=== PATIENT | male | born 1950 | race Caucasian/White ===

== ENCOUNTER 2024-02-08 14:28 | Observation (INO) | payer MEDICARE ==
[2024-02-08] MEDS: ASPIRIN 81 MG PO STA (15:13)
[2024-02-08] MEDS: NITROGLYCERIN OINT 1 INCH/GM PACKET TOPICAL STA (15:16)
--- NOTE | 2024-02-08 15:48 | ED ---
General Adult HPI - General Chief complaint: Recheck/Abnormal Lab/Rx Stated complaint: Chest pain Time Seen by Provider: 02/08/24 14:47 Source: patient Mode of arrival: EMS Limitations: no limitations - History of Present Illness Initial comments: This 73-year-old male presents with a complaint of some chest pain and shortness of breath. He states that it initially started a couple weeks ago. It seems to be worse with exertion. It is in his midsternal region described as a pressure. It will occasionally radiate down his left arm. He states that he is very active. He apparently was lifting something up heavy to the top of the steps and afterwards he states that his symptoms were severe in nature. He denies any fevers or chills. He does relate a history of COPD and pulmonary fibrosis. He also states that he was scheduled for a PET scan to evaluate him abnormal calcification on his right lung. His last stress test was quite remote. He denies any known history of coronary artery disease. He has never had a heart catheterization. There is no leg pain or swelling or history of DVT or PE. He was initially seen at [facility] and sent to our emergency department for further evaluation. He had 2 negative troponins as well as a negative chest x-ray and EKG and laboratory workup at their facility. He still apparently had a heart score of 5 and they felt as though he would require further cardiac evaluation. Upon my examination today, patient is not complaining of any further chest pain at this time or shortness of breath. No other identifiable complaints or modifying factors. He did receive aspirin at [facility] prior to arrival. - Related Data Allergies Allergy/AdvReac Type Severity Reaction Status Date / Time Penicillins Allergy Rash/Hives Verified 02/08/24 14:43 Sulfa (Sulfonamide Allergy Rash/Hives Verified 02/08/24 14:44 Antibiotics) Review of Systems ROS Statement: Those systems with pertinent positive or pertinent negative responses have been documented in the HPI. ROS Other: All systems not noted in ROS Statement are negative. Past Medical History Past Medical History: Cancer, COPD, GERD/Reflux, Hyperlipidemia, Hypertension Additional Past Medical History / Comment(s): prostate History of Any Multi-Drug Resistant Organisms: None Reported Past Surgical History: Cholecystectomy, Orthopedic Surgery Additional Past Surgical History / Comment(s): excision of bunion, cryoablate prostate, colonoscopy Past Psychological History: No Psychological Hx Reported Smoking Status: Former smoker Past Alcohol Use History: None Reported Past Drug Use History: None Reported General Exam - General Exam Comments Initial Comments: GENERAL: The patient is well nourished and well hydrated. VITAL SIGNS: Heart rate, blood pressure, respiratory rate reviewed as recorded in nurse's notes. EYES: Pupils are round and reactive. Extraocular movements are intact. No conj unctival / lid redness or swelling. ENT: No external evidence of injury, swelling, or ecchymosis. Airway is patent. Throat is clear. NECK: Nontender. No swelling or evidence of injury. No subcutaneous emphysema. Trachea is midline. No thyroid mass. HEART: Regular rate and rhythm. Good peripheral pulses. LUNGS/CHEST: Breath sounds clear and equal bilaterally. No rales, rhonchi, or wheezes. No ecchymosis, subcutaneous emphysema, or tenderness. ABDOMEN: Abdomen soft without tenderness. No palpable masses or organomegaly. No peritoneal signs. No abdominal wall swelling or ecchymosis. EXTREMITIES: No extremity tenderness. Normal muscle tone and function. No thoracolumbar tenderness. NEUROLOGIC: Sensation is grossly intact. Cranial nerve exam reveals face is symmetrical, tongue is midline, speech is clear. SKIN: No abrasions or ecchymosis is noted. No induration or masses noted. PSYCHIATRIC: Alert and oriented. Appropriate behavior and judgment. Limitations: no limitations Course Vital Signs 02/08/24 14:36 Temperature 98 F Pulse Rate 102 H Respiratory 18 Rate Blood Pressure 181/116 O2 Sat by Pulse 98 Oximetry Medical Decision Making - Medical Decision Making The patient was seen and examined. All diagnostics were reviewed. EKG was done at the sending facility and this does show a normal sinus rhythm and there is no acute ST or T wave changes noted per my interpretation. There is a prolonged QTc at 538. The patient had a repeat EKG at our facility which shows a normal sinus rhythm at a rate of 68. There is no acute ST or T wave changes noted per my interpretation. The intervals are all normal. The chest x-ray at the sending facility was all essentially within normal limits. Patient also had a full laboratory workup which does show normal electrolytes and liver function studies. The creatinine is normal at 1.0. The troponins are negative. D-dimer is normal. The patient had a repeat troponin at our facility and this is normal as well. He received some Nitropaste to the anterior chest wall. Records were reviewed from the sending facility. It is felt as though his symptomatology is fairly suspicious of possible coronary artery disease and possible acute coronary syndrome/unstable angina. Patient is agreeable with admission. It is felt as though he benefit from observation admission. Case is discussed with internal medicine and they are agreeable with admission. The patient's blood pressure is elevated and labetalol is ordered. Was pt. sent in by a medical professional or institution (, [employer], PHILOSOPHY FACULTY MEMBER, urgent care, hospital, or [facility]...) When possible be specific @ -Patient was sent to our [facility] from [place] emergency department. Did you speak to anyone other than the patient for history (EMS, parent, family, police, friend...)? What history was obtained from this source @ -Case was discussed with ER physician at the sending facility. Did you review nursing and triage notes (agree or disagree)? Why? @ -[I reviewed and agree with nursing and triage notes] Were old charts reviewed (outside hosp., previous admission, EMS record, old EKG, old radiological studies, urgent care reports/EKG's, [facility] records)? Report findings @ -[No old charts were reviewed] Differential Diagnosis (chest pain, altered mental status, abdominal pain women, abdominal pain men, vaginal bleeding, weakness, fever, dyspnea, syncope, headache, dizziness, GI bleed, back pain, seizure, CVA, palpatations, mental health, musculoskeletal)? @ -Unstable angina, acute coronary syndrome, exertional chest pain and dyspnea with left arm pain, non-ST elevation myocardial infarction. EKG interpreted by me (3pts min.). @ -[As above] X-rays interpreted by me (1pt min.). @ -X-rays were completed at the sending facility, please see above. CT interpreted by me (1pt min.). @ -[None done] U/S interpreted by me (1pt. min.). @ -[None done] What testing was considered but not performed or refused? (CT, X-rays, U/S, labs)? Why? @ -[None] What meds were considered but not given or refused? Why? @ -[None] Did you discuss the management of the patient with other professionals (professionals i.e. , [employer], PHILOSOPHY FACULTY MEMBER, lab, RT, psych nurse, social worker delinquency prevention, associate dean of students, teacher, boating safety officer, caseworker intake)? Give summary @ -Case is discussed with internal medicine and they are agreeable with admission. Was smoking cessation discussed for >3mins.? @ -[No] Was critical care preformed (if so, how long)? @ -[No] Were there social determinants of health that impacted care today? How? (Homelessness, low income, unemployed, alcoholism, drug addiction, transportation, low edu. Level, literacy, decrease access to med. care, longterm, rehab)? @ -[No] Was there de-escalation of care discussed even if they declined (Discuss DNR or withdrawal of care, Hospice)? DNR status @ -[No] What co-morbidities impacted this encounter? (DM, HTN, Smoking, COPD, CAD, Cancer, CVA, ARF, Chemo, Hep., AIDS, mental health diagnosis, sleep apnea, morbid obesity)? @ -Hyperlipidemia, chronic sinusitis, COPD, pulmonary nodule, gastroesophageal reflux, psoriasis, osteoarthritis, prostate cancer. Was patient admitted / discharged? Hospital course, mention meds given and route, prescriptions, significant lab abnormalities, going to OR and other pertinent info. @ -Patient was admitted to observation, please see above. Undiagnosed new problem with uncertain prognosis? @ -[No] Drug Therapy requiring intensive monitoring for toxicity (Heparin, Nitro, Insulin, Cardizem)? @ -[No] Were any procedures done? @ -[No] Diagnosis/symptom? @ -Exertional chest pain and dyspnea, possible acute coronary syndrome, unstable angina Acute, or Chronic, or Acute on Chronic? @ -Acute Uncomplicated (without systemic symptoms) or Complicated (systemic symptoms)? @ -Uncomplicated Side effects of treatment? @ -[No] Exacerbation, Progression, or Severe Exacerbation? @ -[No] Poses a threat to life or bodily function? How? (Chest pain, [place], [place], pneumonia, PE, COPD, DKA, ARF, appy, cholecystitis, CVA, Diverticulitis, Homicidal, Suicidal, threat to staff... and all critical care pts) @ -Acute coronary syndrome does potentially cause threat to life. - Lab Data Lab Results 02/08/24 Range/Units 15:10 Troponin I 0.014 (0.000-0.034) ng/mL Disposition Clinical Impression: Exertional chest pain, Exertional dyspnea, Unstable angina, Hypertension Disposition: ADMITTED IP TO THIS HOSP Condition: Fair Is patient prescribed a controlled substance at d/c from ED?: No Referrals: None,Stated [Primary Care Provider] - 1-2 days Time of Disposition: 15:48 Decision Date: 02/08/24 Decision Time: 15:48
[2024-02-08] MEDS ORDERED: NITROGLYCERIN SL TABS 0.4 MG TAB SUBLINGUAL PRN (15:49)
[2024-02-08] MEDS: LABETALOL 5 MG/ML VIAL MDV IVP STA (16:04)
[2024-02-08] MEDS: ENOXAPARIN 40 MG/0.4 ML SYRINGE SQ SCH (16:07)
[2024-02-08] MEDS: NITROGLYCERIN OINT 1 INCH/GM PACKET TOPICAL SCH (20:02)
[2024-02-08] MEDS: PANTOPRAZOLE 40 MG TABLET PO SCH (22:11)
[2024-02-09] MEDS ORDERED: ASPIRIN 325 MG TAB PO SCH (09:00)
[2024-02-09] MEDS: ASPIRIN 81 MG PO SCH (09:25)
[2024-02-09] MEDS: LORATADINE 10 MG TAB PO SCH (09:25)
[2024-02-09] MEDS: amLODIPine 5 MG TAB PO SCH (09:26)
[2024-02-09] MEDS: SODIUM CHLORIDE 0.9% 1,000 ML IV SCH (09:26)
[2024-02-09] MEDS: LOSARTAN 25 MG TAB PO SCH (09:26)
[2024-02-09] MEDS: METOPROLOL TARTRATE 25 MG TAB PO SCH (09:26)
[2024-02-09 11:41] LABS: LDL Cholesterol,Calculated 140.8 mg/dL (0.0-131.0)
[2024-02-09 16:37] LABS: Basophils # (A) 0.07 X 10*3/uL (0.00-0.10); Basophils % (A) 0.6 %; Eosinophils # (A) 0.26 X 10*3/uL (0.04-0.35); Eosinophils % (A) 2.3 %; HGB 15.9 g/dL (13.0-17.0); Lymphocytes # (A) 2.23 X 10*3/uL (0.90-5.00); Lymphocytes % (A) 19.9 %; MCHC 33.1 g/dL (32.0-37.0); MCV 90.6 FL (80.0-97.0); Mean Platelet Volume 10.8 FL (9.5-12.2); Monocytes # (A) 0.98 X 10*3/uL (0.20-1.00); Monocytes % (A) 8.7 %; NRBC Per 100 WBC 0 X 10*3/uL (0.00-0.01); Neutrophils # (A) 7.56 X 10*3/uL (1.80-7.70); Neutrophils % (A) 67.5 %; Platelet Count 286 X 10*3/uL (140-440); RDW 13.6 % (11.5-14.5); WBC 11.21 X 10*3/uL (4.50-10.00)
[2024-02-09 16:39] LABS: Blood Urea Nitrogen 26.2 mg/dL (9.0-27.0); Calcium 9.3 mg/dL (8.7-10.3); Carbon Dioxide 21.6 mmol/L (21.6-31.8); Chloride 106 mmol/L (96-109); Glucose 100 mg/dL (70-110); Potassium 4.4 mmol/L (3.5-5.5); Sodium 140 mmol/L (135-145)
--- NOTE | 2024-02-09 21:03 | CONS ---
CONSULTATION Mr. Thierry Newberry is a 73-year-old gentleman with a known history of hypertension that he is aware of since 2021, but has not taken medications and he thought this was a white coat phenomenon. He also has a history of what seems to be a prostate cancer for which he had surgery. He also was diagnosed with pulmonary fibrosis and there is a question of pulmonary malignancy as well. This is the background history. He was transferred from [place] with complaints of chest pain, troponins are normal. EKG revealed sinus mechanism, first-degree AV block, no acute changes. Three sets of troponins are normal and the patient is resting comfortably without symptoms at this time. His main complaint for the last 2 weeks is shortness of breath on and off and yesterday he was carrying some tiles more than 40 pounds. He felt discomfort in the epigastric area and shortness of breath, and took time to recover from the shortness of breath. It is possible he may have CAD, but he has also a question of pulmonary fibrosis and workup is being performed for a pulmonary malignancy and is scheduled for a PET scan according to the patient. PAST MEDICAL HISTORY: 1. Hypertension. The patient does not take any medications even though he was aware of this since 2021. 2. Prostate CA status post cryosurgery. 3. History of some pulmonary fibrosis and question of pulmonary malignancy being investigated. MEDICATIONS: At home, no prescription medicines other than Prilosec that he takes over the counter. PHYSICAL EXAMINATION: VITAL SIGNS: Blood pressure is 140/70, pulse rate 70. HEENT: Unremarkable. Fundus not examined by me. NECK: Supple. No JVD. I do not hear a carotid bruit. There is no thyromegaly. HEART: S1, S2 heard normally. No significant murmurs. LUNGS: Reveal fine scattered rales on the left lateral base. ABDOMEN: Soft, nontender. LOWER EXTREMITIES: Reveal diminished pulses. CENTRAL NERVOUS SYSTEM: Normal. DIAGNOSTIC DATA: EKG revealed sinus mechanism, borderline first-degree AV block, no acute changes. IMPRESSION: 1. Episode of chest pain and shortness of breath, cannot exclude CAD. 2. Accelerated hypertension. 3. History of prostate cancer. 4. Question of pulmonary malignancy and pulmonary fibrosis, workup in progress. RECOMMENDATIONS: I am recommending that we treat him with metoprolol tartrate 25 mg daily, losartan 25 mg daily, aspirin 81 mg daily, amlodipine 5 mg daily. Once we optimize blood pressure, I will consider either a stress test or a cardiac cath. Explained to the patient that we will increase activity, optimize BP control, obtain echocardiogram, and then make further recommendations. Thank you very much for the consult. BARRY / CONRADO: [id number] /
[2024-02-10] MEDS ORDERED: IPRATROPIUM-ALBUTEROL 3 ML NEB INHALATION PRN (00:17)
--- NOTE | 2024-02-10 00:20 | P.HPIM ---
History of Present Illness H&P Date: 02/09/24 Chief Complaint: Chest pain Patient is a 73-year-old male with a long history of hypertension, hyperkalemia, GERD and COPD and prior history of smoking presents to ER with complaints of chest pain and shortness of breath. Patient states that he has been having difficulty breathing for the past 3 weeks and states that his lungs hurt mainly in the left upper chest. Yesterday historian chest pain after getting out of the car and went to the store he felt like his heart flip-flopping. 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 He started having chest pain and left arm tingling sensation. He noted his blood pressure went up to 126/101. Presented to ER for further evaluation. Patient otherwise denies any fever or chills. No cough or sputum production. No nausea vomiting or diaphoresis. Patient went to [facility] ER. He was found to have a negative troponin send chest x-ray was negative and EKG was sinus rhythm with no acute changes. Patient was transferred to [facility] with a heart score of 5 and possible further cardiac evaluation. Patient received aspirin prior to transfer. Laboratory data showed WBC 11.2 hemoglobin 15.9 and platelets 286 Sodium 140 potassium 4.4 chloride 106 bicarb is 21.6 BUN 26.2 and creatinine 1.0 and blood sugar 100 and troponin 0.014 Review of Systems Constitutional: Patient denies any fever or chills . No generalized weakness or weight loss. Abdomen: Patient denied nausea vomiting and diarrhea and abdominal pain. Cardiovascular: Patient did have chest pain and short of breath no palpitations. No leg swelling Respiratory: patient denied any cough is from production. Exertional shortness of breath Neurologic: Patient denied any numbness or tingling headache. Musculoskeletal: Patient denies any complaints of joint swelling or deformity. Skin: Negative Psychiatric: Negative Endocrine: No heat or cold intolerance. No recent weight gain. Genitourinary: No dysuria or hematuria. All other 14 point ROS negative except the above Past Medical History Past Medical History: Cancer, COPD, GERD/Reflux, Hyperlipidemia, Hypertension Additional Past Medical History / Comment(s): prostate History of Any Multi-Drug Resistant Organisms: None Reported Past Surgical History: Cholecystectomy, Orthopedic Surgery Additional Past Surgical History / Comment(s): excision of bunion, cryoablate prostate, colonoscopy Past Psychological History: No Psychological Hx Reported Smoking Status: Former smoker Past Alcohol Use History: None Reported Past Drug Use History: None Reported Medications and Allergies Home Medications Medication Instructions Recorded Confirmed Type Cetirizine HCl [Zyrtec] 10 mg PO DAILY 02/08/24 02/08/24 History Omeprazole [PriLOSEC] 20 mg PO HS 02/08/24 02/08/24 History Allergies Allergy/AdvReac Type Severity Reaction Status Date / Time Penicillins Allergy Rash/Hives Verified 02/08/24 16:04 Sulfa (Sulfonamide Allergy Rash/Hives Verified 02/08/24 16:04 Antibiotics) steroid injection (unknown) AdvReac Dizziness Uncoded 02/08/24 16:04 Physical Exam Vitals: Vital Signs Temp Pulse Pulse Resp BP BP Pulse Ox 02/09/24 07:00 97.8 F 79 16 148/78 94 L 02/09/24 03:18 98.0 F 68 16 130/77 97 02/08/24 19:37 97.4 F L 59 L 16 159/92 98 02/08/24 19:23 68 18 124/87 96 02/08/24 17:46 80 18 119/89 02/08/24 16:32 71 18 122/85 02/08/24 16:01 101 H 18 158/134 98 02/08/24 14:36 98 F 102 H 18 181/116 98 Intake and Output 02/08/24 02/09/24 02/09/24 22:59 06:59 14:59 Intake Total 118 Balance 118 Intake: Oral 118 Other: # Voids 1 1 Weight 86.183 kg PHYSICAL EXAMINATION: Patient is lying in the bed comfortably, no acute distress, awake alert and oriented.. HEENT: Normocephalic. Neck is supple. Pupils reactive. Nostrils clear. Oral c avity is moist. Neck reveals no JVD, carotid bruits, or thyromegaly. CHEST EXAMINATION: Trachea is central. Symmetrical expansion. Bibasilar diminished sounds. No wheezing. Otherwise lung chapa clear to auscultation and percussion. CARDIAC: Normal S1, S2 with no gallops. No murmurs ABDOMEN: Soft. Bowel sounds normal. No organomegaly. No abdominal bruits. Extremities: reveal no edema. No clubbing or cyanosis Neurologically awake, alert, oriented x3 with well-coordinated movements. No f ocal deficits noted Skin: No rash or skin lesions. Psychiatric: Coperative. Nonsuicidal Musculoskeletal: No joint swelling or deformity. Normal range of motion. Results CBC & Chem 7: 02/09/24 07:00 02/09/24 07:00 Thrombosis Risk Factor Assmnt - DVT/VTE Prophylaxis DVT/VTE Prophylaxis: Pharmacologic Prophylaxis ordered Assessment and Plan Assessment: Cardiac chest pain and exertional dyspnea. Rule out ACS. COPD with prior history of smoking Hypertension uncontrolled Hyperlipidemia GERD History of prostate cancer Pulmonary fibrosis and questionable history of malignancy DVT prophylaxis with Lovenox subcu Plan: Patient will be continued on telemonitoring. Troponin x 3 negative. Patient was started on aspirin, metoprolol, losartan and amlodipine for better blood pressure control. 2D echocardiogram was ordered Cardiology is on board. planning for stress test. DuoNebs as needed. Repeat chest x-ray. Continue to follow closely. Time with Patient: Greater than 30
--- NOTE | 2024-02-10 08:21 | XR ---
EXAMINATION TYPE: XR chest 2V DATE OF EXAM: 02/10/2024 COMPARISON: 02/10/2024 HISTORY: Shortness of breath TECHNIQUE: Frontal and lateral views of the chest are obtained. FINDINGS: Scattered senescent parenchymal changes noted. Hyperinflation compatible with COPD. No evidence for infiltrate. No evidence for atelectasis. Heart size is stable. Mediastinal structures are stable and grossly unremarkable. No evidence for hilar prominence. Degenerative changes dorsal spine. IMPRESSION: 1. No evidence for acute pulmonary disease.
--- NOTE | 2024-02-10 08:28 | CA ---
Transthoracic Echo Report Name: August Newberry Age: 73 Gender: M : 1950 Exam Date: 02/09/2024 12:36 Exam Location: [place] [facility] Ht (in): 69 Wt (lb): 190 Ordering Physician: Esdras Mora DO Attending/Referring Phys: [id number], [employer] ML Procedure CPT: Indications: cp and sob Cardiac Hx: Technical Quality: Contrast 1: Definity Total Dose (mL): 3 Contrast 2: Total Dose (mL): MEASUREMENTS (Male / Female) Normal Values 2D ECHO LV Diastolic Diameter PLAX 4.6 cm 4.2 - 5.9 / 3.9 - 5.3 cm LV Systolic Diameter PLAX 3.2 cm IVS Diastolic Thickness 0.9 cm 0.6 - 1.0 / 0.6 - 0.9 cm LVPW Diastolic Thickness 0.8 cm 0.6 - 1.0 / 0.6 - 0.9 cm LV Relative Wall Thickness 0.4 LVOT Diameter 1.7 cm Aortic Root Diameter 3.3 cm LA Systolic Diameter LX 3.9 cm 3.0 - 4.0 / 2.7 - 3.8 cm DOPPLER AV Peak Velocity 156.8 cm/s AV Peak Gradient 9.8 mmHg AV Mean Velocity 93.5 cm/s AV Mean Gradient 3.9 mmHg AV Velocity Time Integral 28.5 cm AI Peak Velocity 448.7 cm/s AI Peak Gradient 80.5 mmHg AI Pressure Half Time 590.9 ms LVOT Peak Velocity 121.3 cm/s LVOT Peak Gradient 5.9 mmHg LVOT Velocity Time Integral 26.1 cm LVOT Stroke Volume 62.3 cm??? LVOT Stroke Volume Index 30.8 ml/m??? LVOT Cardiac Index 2172.4 cm???/min???m??? AV Area Cont Eq vti 2.2 cm??? AV Area Cont Eq pk 1.8 cm??? MV Area PHT 4.8 cm??? Mitral E Point Velocity 70.7 cm/s Mitral A Point Velocity 68.6 cm/s Mitral E to A Ratio 1.0 MV Deceleration Time 157.1 ms PV Peak Velocity 64.5 cm/s PV Peak Gradient 1.7 mmHg FINDINGS Left Ventricle Left ventricular ejection fraction is estimated at 50-55 %. Normal left ventricular systolic function with no obvious regional wall motion abnormalities. Right Ventricle Normal right ventricular size. Right Atrium Normal right atrial size. Left Atrium Normal left atrial size. Mitral Valve Trace mitral regurgitation. Aortic Valve Mild aortic regurgitation. Tricuspid Valve No tricuspid regurgitation. Pulmonic Valve No pulmonic regurgitation. Pericardium No pericardial effusion. Aorta Normal size aortic root and proximal ascending aorta. CONCLUSIONS Normal LV size fair systolic function mild concentric LVH mild mitral and tricuspid regurgitation no pericardial effusion no pulmonary hypertension Previewed by: Dr. Livier Hager MD (Electronically Signed) Final Date: 10 February 2024 08:27
[2024-02-10] MEDS ORDERED: CAFFEINE CITRATE 60 MG/3 ML VIAL IV PRN (08:48)
[2024-02-10] MEDS ORDERED: AMINOPHYLLINE 500 MG/20 ML VIAL IV PRN (08:48)
[2024-02-10] MEDS ORDERED: REGADENOSON 0.4 MG/5 ML SYRINGE IV PRN (08:48)
[2024-02-10 08:53] LABS: Basophils # (A) 0.06 X 10*3/uL (0.00-0.10); Basophils % (A) 0.6 %; Eosinophils # (A) 0.47 X 10*3/uL (0.04-0.35); Eosinophils % (A) 4.4 %; HCT 45.3 % (39.6-50.0); HGB 14.9 g/dL (13.0-17.0); Lymphocytes # (A) 2.42 X 10*3/uL (0.90-5.00); Lymphocytes % (A) 22.8 %; MCH 29.7 pg (27.0-32.0); MCHC 32.9 g/dL (32.0-37.0); MCV 90.4 FL (80.0-97.0); Mean Platelet Volume 10.5 FL (9.5-12.2); Monocytes # (A) 0.96 X 10*3/uL (0.20-1.00); NRBC Per 100 WBC 0 X 10*3/uL (0.00-0.01); Neutrophils # (A) 6.64 X 10*3/uL (1.80-7.70); Neutrophils % (A) 62.4 %; Platelet Count 260 X 10*3/uL (140-440); RBC 5.01 X 10*6/uL (4.40-5.60); RDW 13.3 % (11.5-14.5); WBC 10.63 X 10*3/uL (4.50-10.00)
[2024-02-10 09:13] LABS: BUN/Creat Ratio 22.11 Ratio (12.00-20.00); Blood Urea Nitrogen 19.9 mg/dL (9.0-27.0); Calcium 8.7 mg/dL (8.7-10.3); Carbon Dioxide 20.7 mmol/L (21.6-31.8); Chloride 106 mmol/L (96-109); Glucose 92 mg/dL (70-110); Potassium 4.3 mmol/L (3.5-5.5); Sodium 140 mmol/L (135-145)
[2024-02-10] MEDS: ATORVASTATIN 80 MG TAB PO SCH (09:40)
--- NOTE | 2024-02-10 11:38 | CA ---
Lexiscan Nuclear Stress Test Report Name: August Newberry Exam Date: 02/10/2024 10:18 Exam Location: [facility] Ht (in): 69 Wt (lb): 190 BSA: 2.02 Ordering Phys: Livier Hager MD Referring Phys: MACKENZIE Technologist: RAND DE LA CRUZ Age: 73 Gender: M : 1950 Procedure CPT: Indications: Reflex order-Stress test ICD-10 Codes: Patient History: CP, VICTORINA, PALP, HTN, COPD Medications: SEE CHART Meds past 24 hrs: Pretest Chest Pain: STRESS TEST Lexiscan Protocol Exercise Duration (min:sec): 01:[address] Depressions (mm): Angina Score: Price Score: Resting HR (bpm): 72 Peak HR (bpm): 93 Resting BP (mmHg): 143 / 90 Peak BP (mmHg): 227 / 90 MPHR: 147 Target HR: 125 % MPHR: 63 METS: 1.0 Total Dose: Peak Dose: Atropine: Double Product: 52887 BP Response: Stress Termination: END OF DOSE Stress Symptoms: N/A Stress Summary: ECG ANALYSIS Resting ECG: Stress ECG: CONCLUSIONS Baseline EKG revealed a normal sinus rhythm without significant ST-T changes. First-degree AV block was noted. With Lexiscan administration the heart rate went up from 69-84 bpm and the blood pressure changed from 143/92 220/90 patient was asymptomatic. EKG was unremarkable. By EKG criteria this is a unremarkable Lexiscan stress test. The nuclear scan results will be reported by the radiologist Dr. Livier Hager MD (Electronically Signed) Final Date: 10 February 2024 11:37
--- NOTE | 2024-02-10 12:17 | NM ---
EXAMINATION TYPE: NM stress lexiscan cardiolite DATE OF EXAM: 02/10/2024 COMPARISON: NONE HISTORY: Chest pain TECHNIQUE: After the intravenous administration of 10.1 mCi Tc 99m Sestamibi - Cardiolite resting SP ECT images acquired 45 minutes post injection. At peak stress 26.6 mCi Tc 99m Sestamibi - Stress images obtained 30 minutes post injection The patient was stressed with 0.4mg Lexiscan. FINDINGS: No fixed defects are evident No reversible stress defects on Spect images Wall motion is normal Ejection fraction is calculated to be 69 %. IMPRESSION: 1. No stress-induced ischemic changes.
[2024-02-10] MEDS: amLODIPine 5 MG TAB PO STA (12:46)
[2024-02-10 14:21] VITALS: BP 137/81; PULSE 70; RESP 16; TEMP 97.5
[2024-02-10] MEDS: IPRATROPIUM-ALBUTEROL 3 ML NEB INHALATION SCH (16:12)
--- NOTE | 2024-02-10 23:54 | PN ---
PROGRESS NOTE SUBJECTIVE: Mr. Newberry is a gentleman who was admitted yesterday with accelerated hypertension and chest tightness. Troponins were negative. His blood pressure is much better controlled today on a combination of metoprolol tartrate 25 mg daily and losartan 25 mg daily as well as amlodipine 5 mg daily. He had a Lexiscan stress test today which revealed good myocardial perfusion and function. He is doing well. I am recommending that he should increase the dose of losartan at 50 mg and amlodipine 5 mg. Amlodipine to be taken in the morning, losartan in the evening, and metoprolol tartrate will be changed to metoprolol succinate 25 mg daily and he can be discharged and I will see him in the office in 2-3 weeks. Advised to be compliant with medications and follow up with his PCP and ehs specialist. BARRY / CONRADO: [id number] /
== END 2024-02-10 16:15 | disposition home or self-care (01) ==
LOC: EC 14:28 → 6NMEDSUR 15:52
PROVIDERS: ADMIT Internal Medicine; ATTEND Internal Medicine
DX: R07.89 Other chest pain (principal); I10 Essential (primary) hypertension; I44.0 Atrioventricular block, first degree; J84.10 Pulmonary fibrosis, unspecified; J44.9 Chronic obstructive pulmonary disease, unspecified; K21.9 Gastro-esophageal reflux disease without esophagitis; E78.5 Hyperlipidemia, unspecified; J32.9 Chronic sinusitis, unspecified; M19.90 Unspecified osteoarthritis, unspecified site; L40.9 Psoriasis, unspecified; R20.2 Paresthesia of skin; M79.602 Pain in left arm; Z79.899 Other long term (current) drug therapy; Z88.0 Allergy status to penicillin; Z88.2 Allergy status to sulfonamides; Z88.8 Allergy status to other drugs, medicaments and biological substances; Z87.891 Personal history of nicotine dependence; Z85.46 Personal history of malignant neoplasm of prostate
CPT/HCPCS: 96361 ×2; 96372 ×2; 96374; 99285; 36415; 93005; 93017; 80061; 80048 ×2; 84484; 85025 ×2; 71046; 78452; G0378 ×3; C8929; A9500; J1650 ×2; Q9957; J2785; J1920; 93306

== ENCOUNTER 2024-02-17 09:33 | Inpatient (IN) | payer MEDICARE ==
[2024-02-17] MEDS: NITROGLYCERIN SL TABS 0.4 MG TAB SUBLINGUAL STA (10:45)
[2024-02-17] MEDS: ASPIRIN 81 MG PO STA (10:45)
[2024-02-17] MEDS: NITROGLYCERIN OINT 1 INCH/GM PACKET TOPICAL STA (10:45)
--- NOTE | 2024-02-17 10:52 | ED ---
General Adult HPI - General Chief complaint: Chest Pain Stated complaint: Chest Pains Time Seen by Provider: 02/17/24 09:40 Source: patient, RN notes reviewed, old records reviewed Mode of arrival: ambulatory Limitations: no limitations - History of Present Illness Initial comments: This is a 74-year-old male who presents to the emergency department stating he is having chest pain. Patient states he was here a little while ago and stayed 3 days and they did an echo and a stress test and sent him home. Patient states since then anytime he exerts himself he has shortness of breath and significant chest pressure. Patient states sometimes just walking up the stairs causes this. Patient states the other day he actually passed out he states he thinks that happened on Wednesday. He walked up the stairs became so short of breath and started having chest pain and he passed out but his does not see well so he did not want her to bring her in at nighttime. Patient currently complains of chest pressure and no shortness of breath while laying here. Patient also states he has prostate cancer with 1 small nodule in the lung. Patient denies any recent fever chills or cough. Patient states he was a smoker but quit 25 years ago. - Related Data Home Medications Medication Instructions Recorded Confirmed Cetirizine HCl [Zyrtec] 10 mg PO DAILY 02/08/24 02/17/24 Omeprazole [PriLOSEC] 20 mg PO HS 02/08/24 02/17/24 Previous Rx's Medication Instructions Recorded Aspirin 81 mg PO DAILY #30 tab 02/10/24 Losartan [Cozaar] 50 mg PO HS #60 tab 02/10/24 Metoprolol Succinate [Metoprolol 25 mg PO DAILY #30 tab 02/10/24 Succinate ER] Simvastatin 20 mg PO HS #30 tablet 02/10/24 amLODIPine [Norvasc] 5 mg PO DAILY #30 tab 02/10/24 Allergies Allergy/AdvReac Type Severity Reaction Status Date / Time Penicillins Allergy Rash/Hives Verified 02/17/24 10:37 Sulfa (Sulfonamide Allergy Rash/Hives Verified 02/17/24 10:37 Antibiotics) steroid injection (unknown) AdvReac Dizziness Uncoded 02/17/24 10:37 Review of Systems ROS Statement: Those systems with pertinent positive or pertinent negative responses have been documented in the HPI. ROS Other: All systems not noted in ROS Statement are negative. Past Medical History Past Medical History: Cancer, COPD, GERD/Reflux, Hyperlipidemia, Hypertension Additional Past Medical History / Comment(s): prostate History of Any Multi-Drug Resistant Organisms: None Reported Past Surgical History: Cholecystectomy, Orthopedic Surgery Additional Past Surgical History / Comment(s): excision of bunion, cryoablate prostate, colonoscopy Past Psychological History: No Psychological Hx Reported Smoking Status: Former smoker Past Alcohol Use History: None Reported Past Drug Use History: None Reported General Exam - General Exam Comments Initial Comments: GENERAL: Patient is well-developed and well-nourished. Patient is nontoxic and well- hydrated and is in mild distress. ENT: Neck is soft and supple. No significant lymphadenopathy is noted. Oropharynx is clear. Moist mucous membranes. Neck has full range of motion without eliciting any pain. EYES: The sclera were anicteric and conjunctiva were pink and moist. Extraocular movements were intact and pupils were equal round and reactive to light. Eyelids were unremarkable. PULMONARY: Unlabored respirations. Good breath sounds bilaterally. No audible rales rhonchi or wheezing was noted. CARDIOVASCULAR: There is a regular rate and rhythm without any murmurs gallops or rubs. ABDOMEN: Soft and nontender with normal bowel sounds. SKIN: Skin is clear with no lesions or rashes and otherwise unremarkable. NEUROLOGIC: Patient is alert and oriented x3. Cranial nerves II through XII are grossly intact. Motor and sensory are also intact. Normal speech, volume and content. Symmetrical smile. MUSCULOSKELETAL: Normal extremities with adequate strength and full range of motion. No lower extremity swelling or edema. No calf tenderness. LYMPHATICS: No significant lymphadenopathy is noted PSYCHIATRIC: Normal psychiatric evaluation. Limitations: no limitations Course Vital Signs 02/17/24 02/17/24 09:38 11:02 Temperature 97.7 F 98.0 F Pulse Rate 114 H 102 H Respiratory 18 17 Rate Blood Pressure 111/77 100/68 O2 Sat by Pulse 98 96 Oximetry Medical Decision Making - Medical Decision Making EKG is interpreted by myself but EKG shows supraventricular tachycardia at 112 b pm QRS is 89 QT interval 336 QTc is 402 Was pt. sent in by a medical professional or institution (, PA, [employer]CH[employer], urgent care, hospital, or prison...) When possible be specific @ -No Did you speak to anyone other than the patient for history (EMS, parent, family, police, friend...)? What history was obtained from this source @ -No Did you review nursing and triage notes (agree or disagree)? Why? @ -I reviewed and agree with nursing and triage notes Were old charts reviewed (outside hosp., previous admission, EMS record, old EKG, old radiological studies, urgent care reports/EKG's, prison records)? Report findings @ -I compared the chest x-ray with the previous chest x-ray showed no acute normality. Compared the patient's last lab work with today's lab work again no acute abnormality. I reviewed the patient's echocardiogram from the last visit as well which showed a good ejection fraction. Differential Diagnosis (chest pain, altered mental status, abdominal pain women, abdominal pain men, vaginal bleeding, weakness, fever, dyspnea, syncope, headache, dizziness, GI bleed, back pain, seizure, CVA, palpatations, mental health, musculoskeletal)? @ -Differential Chest Pain: Stable Angina, Unstable Angina, STEMI, NSTEMI Aortic Dissection, Pneumothorax, Musculoskeletal, Esophageal Spasm GERD, Cholecystitis, Pancreatitis, Zoster, this is not meant to be an all-inclusive list. Differential Dyspnea: Coronary syndrome, arrhythmia, tamponade, asthma, COPD, pulmonary embolism, pneumonia, pneumothorax, pulmonary effusion, anaphylaxis, diabetic ketoacidosis, flailed chest, pulmonary contusion, diaphragmatic rupture, anemia, neuromuscular, this is not meant to be an all-inclusive list. EKG interpreted by me (3pts min.). @ -As above X-rays interpreted by me (1pt min.). @ -Chest x-ray shows no acute abnormality CT interpreted by me (1pt min.). @ -None done U/S interpreted by me (1pt. min.). @ -None done What testing was considered but not performed or refused? (CT, X-rays, U/S, labs)? Why? @ -None What meds were considered but not given or refused? Why? @ -None Did you discuss the management of the patient with other professionals (professionals i.e. , PA, [employer]CHIT[employer], lab, RT, psych nurse, rn social services, application spec, teacher, disability hearing officer, shelter case manager)? Give summary @ -[facility] admit the patient wrote admitting orders I did contact them because the patient seen them in the hospital less than 2 weeks ago Was smoking cessation discussed for >3mins.? @ -No Was critical care preformed (if so, how long)? @ -No Were there social determinants of health that impacted care today? How? (Homelessness, low income, unemployed, alcoholism, drug addiction, transportation, low edu. Level, literacy, decrease access to med. care, [facility], rehab)? @ -No Was there de-escalation of care discussed even if they declined (Discuss DNR or withdrawal of care, Hospice)? DNR status @ -No What co-morbidities impacted this encounter? (DM, HTN, Smoking, COPD, CAD, Cancer, CVA, ARF, Chemo, Hep., AIDS, mental health diagnosis, sleep apnea, morbid obesity)? @ -None Was patient admitted / discharged? Hospital course, mention meds given and route, prescriptions, significant lab abnormalities, going to OR and other pertinent info. @ -Patient continued to have chest discomfort and shortness of breath in the emergency department. Patient's lab work essentially was normal. Chest x-ray was normal. I consulted cardiology and I [facility] and I wrote admitting orders Undiagnosed new problem with uncertain prognosis? @ -No Drug Therapy requiring intensive monitoring for toxicity (Heparin, Nitro, Insulin, Cardizem)? @ -No Were any procedures done? @ -No Diagnosis/symptom? @ -Chest pain Acute, or Chronic, or Acute on Chronic? @ -Acute Uncomplicated (without systemic symptoms) or Complicated (systemic symptoms)? @ -Default Side effects of treatment? @ -No Exacerbation, Progression, or Severe Exacerbation? @ -No Poses a threat to life or bodily function? How? (Chest pain, USA, AR, pneumonia, PE, COPD, DKA, ARF, appy, cholecystitis, CVA, Diverticulitis, Homicidal, Suicidal, threat to staff... and all critical care pts) @ -Yes this can lead to an AR and endorgan dysfunction Diagnosis/symptom? @ -Exertional dyspnea Acute, or Chronic, or Acute on Chronic? @ -Acute Uncomplicated (without systemic symptoms) or Complicated (systemic symptoms)? @ -Complicated Side effects of treatment? @ -None Exacerbation, Progression, or Severe Exacerbation] @ -No Poses a threat to life or bodily function? @ -Yes this can lead to hypoxia and endorgan dysfunction Diagnosis/symptom? @ -Syncope Acute, or Chronic, or Acute on Chronic? @ -Acute Uncomplicated (without systemic symptoms) or Complicated (systemic symptoms)? @ -Complicated Side effects of treatment? @ -None Exacerbation, Progression, or Severe Exacerbation] @ -No Poses a threat to life or bodily function? @ -No - Lab Data Result diagrams: 02/17/24 10:35 02/17/24 10:35 Lab Results 02/17/24 02/17/24 02/17/24 Range/Units 10:35 10:35 10:35 WBC 12.1 H (3.8-10.6) k/uL RBC 5.80 (4.30-5.90) m/uL Hgb 17.8 H (13.0-17.5) gm/dL Hct 53.1 H (39.0-53.0) % MCV 91.4 (80.0-100.0) fL MCH 30.7 (25.0-35.0) pg MCHC 33.6 (31.0-37.0) g/dL RDW 12.8 (11.5-15.5) % Plt Count 315 (150-450) k/uL MPV 8.3 Neutrophils % 73 % Lymphocytes % 17 % Monocytes % 6 % Eosinophils % 1 % Basophils % 1 % Neutrophils # 8.8 H (1.3-7.7) k/uL Lymphocytes # 2.0 (1.0-4.8) k/uL Monocytes # 0.7 (0-1.0) k/uL Eosinophils # 0.2 (0-0.7) k/uL Basophils # 0.1 (0-0.2) k/uL PT 10.6 (10.0-12.5) sec INR 1.0 (<1.2) APTT 26.2 (22.0-30.0) sec D-Dimer 0.34 (<0.60) mg/L FEU Sodium 138 (137-145) mmol/L Potassium 4.1 (3.5-5.1) mmol/L Chloride 109 H (98-107) mmol/L Carbon Dioxide 20 L (22-30) mmol/L Anion Gap 9 mmol/L BUN 29 H (9-20) mg/dL Creatinine 0.98 (0.66-1.25) mg/dL Est GFR (CKD-EPI)AfAm 88 (>60 ml/min/1.73 sqM) Est GFR (CKD-EPI)NonAf 76 (>60 ml/min/1.73 sqM) Glucose 106 H (74-99) mg/dL Calcium 9.4 (8.4-10.2) mg/dL Magnesium 2.1 (1.6-2.3) mg/dL Total Bilirubin 0.6 (0.2-1.3) mg/dL AST 24 (17-59) U/L ALT 26 (4-49) U/L Alkaline Phosphatase 85 (38-126) U/L Troponin I (0.000-0.034) ng/mL NT-Pro-B Natriuret Pep 56 pg/mL Total Protein 7.1 (6.3-8.2) g/dL Albumin 3.9 (3.5-5.0) g/dL 02/17/24 Range/Units 10:35 WBC (3.8-10.6) k/uL RBC (4.30-5.90) m/uL Hgb (13.0-17.5) gm/dL Hct (39.0-53.0) % MCV (80.0-100.0) fL MCH (25.0-35.0) pg MCHC (31.0-37.0) g/dL RDW (11.5-15.5) % Plt Count (150-450) k/uL MPV Neutrophils % % Lymphocytes % % Monocytes % % Eosinophils % % Basophils % % Neutrophils # (1.3-7.7) k/uL Lymphocytes # (1.0-4.8) k/uL Monocytes # (0-1.0) k/uL Eosinophils # (0-0.7) k/uL Basophils # (0-0.2) k/uL PT (10.0-12.5) sec INR (<1.2) APTT (22.0-30.0) sec D-Dimer (<0.60) mg/L FEU Sodium (137-145) mmol/L Potassium (3.5-5.1) mmol/L Chloride (98-107) mmol/L Carbon Dioxide (22-30) mmol/L Anion Gap mmol/L BUN (9-20) mg/dL Creatinine (0.66-1.25) mg/dL Est GFR (CKD-EPI)AfAm (>60 ml/min/1.73 sqM) Est GFR (CKD-EPI)NonAf (>60 ml/min/1.73 sqM) Glucose (74-99) mg/dL Calcium (8.4-10.2) mg/dL Magnesium (1.6-2.3) mg/dL Total Bilirubin (0.2-1.3) mg/dL AST (17-59) U/L ALT (4-49) U/L Alkaline Phosphatase (38-126) U/L Troponin I <0.012 (0.000-0.034) ng/mL NT-Pro-B Natriuret Pep pg/mL Total Protein (6.3-8.2) g/dL Albumin (3.5-5.0) g/dL Disposition Clinical Impression: Chest pain, Exertional dyspnea, Syncope Disposition: ADMITTED IP TO THIS HOSP Referrals: Madison Esquivel NPC [Primary Care Provider] - 1-2 days Time of Disposition: 12:22
[2024-02-17 10:58] LABS: Basophils # (A) 0.1 k/uL (0-0.2); Basophils % (A) 1 %; Eosinophils # (A) 0.2 k/uL (0-0.7); Eosinophils % (A) 1 %; HCT 53.1 % (39.0-53.0); HGB 17.8 gm/dL (13.0-17.5); Lymphocytes % (A) 17 %; MCH 30.7 pg (25.0-35.0); MCHC 33.6 g/dL (31.0-37.0); MCV 91.4 fL (80.0-100.0); Mean Platelet Volume 8.3; Monocytes # (A) 0.7 k/uL (0-1.0); Monocytes % (A) 6 %; Neutrophils # (A) 8.8 k/uL (1.3-7.7); Neutrophils % (A) 73 %; Platelet Count 315 k/uL (150-450); RDW 12.8 % (11.5-15.5); WBC 12.1 k/uL (3.8-10.6)
--- NOTE | 2024-02-17 11:02 | XR ---
EXAMINATION TYPE: XR chest 2V DATE OF EXAM: 02/17/2024 COMPARISON: 02/10/2024 INDICATION: Chest pain TECHNIQUE: Frontal and lateral views of the chest are obtained. FINDINGS: The heart size is normal. The pulmonary vasculature is normal. The lungs are clear. IMPRESSION: 1. No acute pulmonary process.
[2024-02-17 11:07] LABS: Partial Thromboplastin Time 26.2 sec (22.0-30.0); Prothrombin Time 10.6 sec (10.0-12.5)
[2024-02-17 11:46] LABS: NT-Pro-B-Type Natriuretic Pept 56 pg/mL
[2024-02-17 11:50] LABS: ALT 26 U/L (4-49); AST 24 U/L (17-59); African American GFR (CKD) 88 (>60 ml/min/1.73 sqM); Albumin 3.9 g/dL (3.5-5.0); Alkaline Phosphatase 85 U/L (38-126); Anion Gap 9 mmol/L; Blood Urea Nitrogen 29 mg/dL (9-20); Calcium 9.4 mg/dL (8.4-10.2); Carbon Dioxide 20 mmol/L (22-30); Chloride 109 mmol/L (98-107); Glucose 106 mg/dL (74-99); Magnesium 2.1 mg/dL (1.6-2.3); Non-African American GFR(CKD) 76 (>60 ml/min/1.73 sqM); Potassium 4.1 mmol/L (3.5-5.1); Sodium 138 mmol/L (137-145); Total Bilirubin 0.6 mg/dL (0.2-1.3); Total Protein 7.1 g/dL (6.3-8.2)
[2024-02-17] MEDS: NITROGLYCERIN SL TABS 0.4 MG TAB SUBLINGUAL PRN (14:21)
[2024-02-17] MEDS: NITROGLYCERIN OINT 1 INCH/GM PACKET TOPICAL SCH (18:01)
[2024-02-17] MEDS: ATORVASTATIN 10 MG TAB PO SCH (20:09)
[2024-02-17] MEDS: PANTOPRAZOLE 40 MG TABLET PO SCH (20:09)
[2024-02-17] MEDS: LOSARTAN 50 MG TAB PO SCH (20:15)
[2024-02-18 08:42] LABS: Chol/HDL Ratio 4.17 Ratio; LDL Cholesterol,Calculated 89.2 mg/dL (0.0-131.0)
[2024-02-18] MEDS: LORATADINE 10 MG TAB PO SCH (09:05)
[2024-02-18] MEDS: ASPIRIN 325 MG TAB PO SCH (09:06)
[2024-02-18] MEDS: METOPROLOL SUCCINATE (ER) 25 MG TAB.ER.24H PO SCH (09:06)
[2024-02-18] MEDS: amLODIPine 5 MG TAB PO SCH (09:06)
[2024-02-18] MEDS ORDERED: HEPARIN SODIUM 1,000 UN/ML (10ML VL) IV PRN ×2 (09:53→10:57)
[2024-02-18] MEDS ORDERED: MORPHINE SULFATE 2 MG/ML SYRINGE IVP PRN (09:56)
[2024-02-18] MEDS ORDERED: NITROGLYCERIN SL TABS 0.4 MG TAB SUBLINGUAL PRN (10:59)
[2024-02-18] MEDS ORDERED: ALPRAZolam 0.25 MG TAB PO PRN (10:59)
[2024-02-18] MEDS: IV FLUID CONTINUATION 1,000 ML IV ONE (11:40)
[2024-02-18] MEDS: MIDAZOLAM 2 MG/2 ML VIAL IVP ONE (11:47)
[2024-02-18 11:48] LABS: Basophils # (A) 0.1 k/uL (0-0.2); Basophils % (A) 1 %; Eosinophils # (A) 0.1 k/uL (0-0.7); Eosinophils % (A) 1 %; HCT 53.6 % (39.0-53.0); HGB 17.4 gm/dL (13.0-17.5); Lymphocytes # (A) 2.4 k/uL (1.0-4.8); Lymphocytes % (A) 18 %; MCHC 32.4 g/dL (31.0-37.0); MCV 92.6 fL (80.0-100.0); Mean Platelet Volume 8.8; Monocytes # (A) 1.1 k/uL (0-1.0); Monocytes % (A) 8 %; Neutrophils # (A) 9.4 k/uL (1.3-7.7); Neutrophils % (A) 70 %; Platelet Count 261 k/uL (150-450); RBC 5.79 m/uL (4.30-5.90); RDW 12.8 % (11.5-15.5); WBC 13.4 k/uL (3.8-10.6)
[2024-02-18] MEDS: LIDOCAINE 2% (PF) 20 MG/ML 5 ML VIAL SQ ONE (11:49)
[2024-02-18] MEDS: fentaNYL (PF) 50 MCG/ML 2 ML AMP IVP ONE (11:50)
[2024-02-18] MEDS: VERAPAMIL SYRINGE (5 MG/10 ML) INTRAARTER ONE (11:52)
[2024-02-18] MEDS: HEPARIN SODIUM 1,000 UN/ML (10ML VL) IV ONE ×3 (11:55→15:58)
[2024-02-18 12:19] LABS: Partial Thromboplastin Time 20.3 sec (22.0-30.0)
[2024-02-18] MEDS: IOPAMIDOL-370 100ML BTL INJ ONE (12:24)
--- NOTE | 2024-02-18 12:30 | P.PCN ---
Date of Procedure: 02/18/24 Description of Procedure: Left heart catheterization and coronary angiography History: Patient was referred for cardiac catheterization to evaluate for CAD. This patient was seen by me last week when he came in with chest pain shortness of breath has multiple medical problems including uncontrolled hypertension. After optimizing his blood pressure control I performed a Lexiscan stress test which did not reveal ischemia and ejection fraction was well-preserved. He went home and came back with episodes of dizziness and chest pain troponin has been elevated mildly. He is in what seems to be like an atrial tachycardia when he came in and then converted to sinus rhythm with first-degree AV block. Because of elevated troponin he was seen and evaluated by Dr. Gore who advised coronary angiogram. I saw the patient in the [facility] [employer] explained to him the rationale risk benefits and options he understood all details and wished to proceed with the procedure Procedure Details: The risks, benefits, complications, treatment options, and expected outcomes were discussed with the patient. The patient concurred with the proposed plan, giving informed consent. Patient was brought to the optical laboratory mechanic after IV hydration was begun and oral premedication was given. Patient was further sedated with midazolam. Patient was prepped and draped in the usual manner. Under strict aseptic precautions and local anesthesia a 6 Hebrew introducer was placed in the right radial artery. Using a JL 3/5 and a JR 4/0 catheters I performed coronary angiography and the same JR catheter was used to check LV pressures and LV gram was not performed. After the procedure was completed the sheaths and catheters were all removed. Hemostasis was achieved with TR band. Saturation in the fingers of the right hand was about 93%. Moderate conscious sedation time was 28 minutes. Patient's oxygen saturation hemodynamics and EKG were monitored closely. He received fentanyl and Versed. Findings: Hemodynamics: The left ventricle end-diastolic pressure was 11 mmHg without any gradient across aortic valve Left Main: Normal no significant disease bifurcates into LAD and circumflex LAD: Good caliber vessel extends along the anterior wall gives off septal and diagonal branches runs towards the apex has minor diffuse irregularities of no more than 30%. The first diagonal branch has about a 50% lesion as it comes off from the LAD. Another diagonal branch comes off towards the distal and fair caliber minor irregularities no significant disease. LAD therefore does not have any significant disease and a diagonal branch has a 50% narrowing small caliber and distribution. CIRC: This is a nondominant vessel gives off a high first obtuse marginal fair caliber and small distribution this almost looks like a ramus then circumflex continues in the AV groove and comes out posterior laterally has minor irregularities of no more than 30%. Relatively disease-free and nondominant circumflex system RCA: Dominant vessel very tortuous in the proximal portion moderate calcification distally bifurcates into a larger PLV smaller PDA. The PDA at its origin has about a 50% narrowing. PLV is much larger than PDA. PDA and PLV have minor irregularities. PDA therefore has a 50% narrowing at the ostium as it comes off from the dominant RCA. 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 Right dominant system normal filling pressures no gradient Pre Procedure Diagnosis: Non-ST elevation [place] Final Post Procedure Diagnosis: Non-ST elevation [place] with a noncritical CAD Recommendation: Aggressive medical therapy with risk factor modification and also monitor for any rhythm abnormalities since patient had a PAT upon arrival. Has first-degree AV block may have some conduction system disease like a tachybradycardia phenomena as well will monitor him for this. Will add high- dose statins and nitrates small dose of beta-brent and amlodipine. Complications: None; patient tolerated the procedure well. Disposition: 3 S. telemetry- hemodynamically stable. Condition: Stable
[2024-02-18] MEDS ORDERED: RX INFO: IV CONTRAST WAS GIVEN 1 EACH MISC MISCELLANE PRN (12:46)
--- NOTE | 2024-02-18 13:23 | P.HPIM ---
History of Present Illness H&P Date: 02/18/24 History of present illness; patient is a 74-year-old gentleman with past medical history significant for hypertension, hyperlipidemia who presented to the hospital for chest pain. Patient was worked up in the hospital a week ago with similar complaint at that time patient had stress test done which was negative and patient was cleared for discharge by cardiology. Patient stated that ever since discharge has been noticing that he gets short of breath on exertion. Patient also complaining of chest pain brought about by exertion, chest pain is pressure-like, central in location, nonradiating, aggravated by exertion, and relieved by rest. Patient stated that he even passed out because of chest pressure on walking up a flight of stairs. Denies any orthopnea or PND. There is no complaint of swelling of feet. Because of the symptoms, patient brought to the ER Initial lab work done in the ER showed WBC 12.1, hemoglobin 17.8, platelet count 315, sodium 138, potassium 4.1, BUN 20, creatinine 0.98, troponin 0.012, repeat was 0.057 EKG done in the ER showed heart rate of 90, no ST segment elevation or depression seen, no T-wave inversions seen. Chest x-ray done in the ER no acute pulmonary process Patient admitted to internal medicine service REVIEW OF SYSTEMS: CONSTITUTIONAL: No fever, no malaise, no fatigue. HEENT: No recent visual problems or hearing problems. Denied any sore throat. CARDIOVASCULAR: As mentioned above PULMONARY: As mentioned above GASTROINTESTINAL: No diarrhea, no nausea, no vomiting, no abdominal pain. NEUROLOGICAL: No headaches, no weakness, no numbness. HEMATOLOGICAL: Denies any bleeding or petechiae. GENITOURINARY: Denies any burning micturition, frequency, or urgency. MUSCULOSKELETAL/RHEUMATOLOGICAL: Denies any joint pain, swelling, or any muscle pain. ENDOCRINE: Denies any polyuria or polydipsia. The rest of the 14-point review of systems is negative. PHYSICAL EXAMINATION: GENERAL: The patient is alert and oriented x3, not in any acute distress. Well developed, well nourished. HEENT: Pupils are round and equally reacting to light. EOMI. No scleral icterus. No conjunctival pallor. Normocephalic, atraumatic. No pharyngeal erythema. No thyromegaly. CARDIOVASCULAR: S1 and S2 present. No murmurs, rubs, or gallops. PULMONARY: Chest is clear to auscultation, no wheezing or crackles. ABDOMEN: Soft, nontender, nondistended, normoactive bowel sounds. No palpable organomegaly. MUSCULOSKELETAL: No joint swelling or deformity. EXTREMITIES: No cyanosis, clubbing, or pedal edema. NEUROLOGICAL: Gross neurological examination did not reveal any focal deficits. SKIN: No rashes. Assessment and plan Acute coronary syndrome Hypertension Lung nodule Hyperlipidemia History of prostate cancer Monitor vital signs Monitor CBC Monitor CMP Continue telemetry monitoring Trend troponin Start pharmacy with heparin Continue aspirin, Lipitor Continue sublingual nitro as needed Continue Nitropaste Continue Toprol, losartan Patient had recent 2D echo done. Consult cardiology Labs and medication were reviewed.. Continue same treatment. Continue with symptomatic treatment. Resume home medication. Monitor labs and vitals. DVT and GI prophylaxis. Further recommendations as per clinical course of the patient Dictation was produced using [employer] dictation software. please excuse any grammatical, word or spelling errors. Past Medical History Past Medical History: Cancer, COPD, GERD/Reflux, Hyperlipidemia, Hypertension Additional Past Medical History / Comment(s): prostate History of Any Multi-Drug Resistant Organisms: None Reported Past Surgical History: Cholecystectomy, Orthopedic Surgery Additional Past Surgical History / Comment(s): excision of bunion, cryoablate prostate, colonoscopy Past Psychological History: No Psychological Hx Reported Smoking Status: Former smoker Past Alcohol Use History: None Reported Past Drug Use History: None Reported Medications and Allergies Home Medications Medication Instructions Recorded Confirmed Type Cetirizine HCl [Zyrtec] 10 mg PO DAILY 02/08/24 02/17/24 History Omeprazole [PriLOSEC] 20 mg PO HS 02/08/24 02/17/24 History Aspirin 81 mg PO DAILY #30 tab 02/10/24 02/17/24 Rx Losartan [Cozaar] 50 mg PO HS #60 tab 02/10/24 02/17/24 Rx Metoprolol Succinate [Metoprolol 25 mg PO DAILY #30 tab 02/10/24 02/17/24 Rx Succinate ER] Simvastatin 20 mg PO HS #30 tablet 02/10/24 02/17/24 Rx amLODIPine [Norvasc] 5 mg PO DAILY #30 tab 02/10/24 02/17/24 Rx Allergies Allergy/AdvReac Type Severity Reaction Status Date / Time Penicillins Allergy Rash/Hives Verified 02/17/24 10:37 Sulfa (Sulfonamide Allergy Rash/Hives Verified 02/17/24 10:37 Antibiotics) steroid injection (unknown) AdvReac Dizziness Uncoded 02/17/24 10:37 Physical Exam Vitals: Vital Signs Temp Pulse Resp BP Pulse Ox 02/18/24 06:45 87 18 109/73 93 L 02/18/24 03:53 87 16 118/76 94 L 02/18/24 01:03 79 18 103/71 96 02/17/24 18:02 96 18 111/80 95 02/17/24 15:59 92 18 101/70 95 02/17/24 14:42 98.3 F 94 20 114/78 95 02/17/24 14:30 104 H 20 112/77 95 02/17/24 14:00 96 20 113/73 96 02/17/24 12:30 98.4 F 91 20 105/70 95 02/17/24 11:02 98.0 F 102 H 17 100/68 96 Results CBC & Chem 7: 02/18/24 11:05 02/17/24 10:35 Labs: Abnormal Lab Results - Last 24 Hours (Table) 02/17/24 02/17/24 02/17/24 Range/Units 10:35 10:35 12:33 WBC 12.1 H (3.8-10.6) k/uL Hgb 17.8 H (13.0-17.5) gm/dL Hct 53.1 H (39.0-53.0) % Neutrophils # 8.8 H (1.3-7.7) k/uL Chloride 109 H (98-107) mmol/L Carbon Dioxide 20 L (22-30) mmol/L BUN 29 H (9-20) mg/dL Glucose 106 H (74-99) mg/dL Troponin I 0.057 H* (0.000-0.034) ng/mL HDL Cholesterol (40.00-60.00) mg/dL 02/17/24 02/18/24 02/18/24 Range/Units 12:52 05:14 05:14 WBC (3.8-10.6) k/uL Hgb (13.0-17.5) gm/dL Hct (39.0-53.0) % Neutrophils # (1.3-7.7) k/uL Chloride (98-107) mmol/L Carbon Dioxide (22-30) mmol/L BUN (9-20) mg/dL Glucose (74-99) mg/dL Troponin I 0.078 H* 0.121 H* (0.000-0.034) ng/mL HDL Cholesterol 37.20 L (40.00-60.00) mg/dL
--- NOTE | 2024-02-18 13:59 | P.CRDCN ---
History of Present Illness History of present illness: HISTORY OF PRESENT ILLNESS: This is a 74-year-old male with a past medical history significant for hypertension and hyperlipidemia. Patient does not follow with a operations research director. We have been asked to see the patient in consultation for non-STEMI. Patient examined at the bedside in the emergency room. Patient was admitted to the hospital last week secondary to chest pain. Acute coronary syndrome was ruled out. He underwent Lexiscan stress test which was negative for ischemia. He was discharged home in stable condition. Patient presented back to the hospital with a chief complaint of chest pain. Patient was found to have elevated troponins and was started on IV heparin. He also reports that he had an episode of dizziness/lightheadedness at home and had a syncopal episode. Remote telemetry reveals sinus mechanism with episodes of atrial tachycardia. DIAGNOSTICS: - EKG reveals sinus mechanism with nonspecific ST-T wave changes - Chest xray negative for acute process - Laboratory data: WBC 13.4. Hemoglobin 17.4. Platelet count 261. Sodium 138. Potassium 4.1. BUN 29. Creatinine 0.98. Troponin 0.012. 0.057. 0.078. 0.121. - Current home cardiac medications include aspirin 81 mg, losartan 50 mg at night, metoprolol succinate 25 mg daily, amlodipine 5 mg daily, and simvastatin 20 mg at night. - Most recent echocardiogram obtained on February 08, 2024 revealed ejection fraction 50 to 55%, trace MR, mild LVH REVIEW OF SYSTEMS: At the time of my exam: CONSTITUTIONAL: Denies fever or chills. HEENT: Denies blurred vision, vision changes, or eye pain. Denies hemoptysis CARDIOVASCULAR: Denies chest pain. Denies orthopnea. Denies PND. Denies palpitations RESPIRATORY: Denies shortness of breath. GASTROINTESTINAL: Denies abdominal pain. Denies nausea or vomiting. HEMATOLOGIC: Denies bleeding disorders. GENITOURINARY: Denies any blood in urine. SKIN: Denies pruitis. Denies rash. PHYSICAL EXAM: VITAL SIGNS: Reviewed. GENERAL: Well-developed in no acute distress. HEENT: Head is normocephalic. Pupils are equal, round. Sclerae anicteric. Mucous membranes of the mouth are moist. Neck supple. No JVD or thyromegaly LUNGS: Respirations even and unlabored. Lungs essentially clear to auscultation bilaterally. HEART: Regular rate and rhythm. S1 and S2 heard. ABDOMEN: Soft. Nondistended. Nontender. EXTREMITIES: Normal range of motion. No clubbing or cyanosis. Peripheral pulses intact. No lower extremity edema NEUROLOGIC: Awake and alert. Oriented x 3. ASSESSMENT: Chest pain Non-STEMI Paroxysmal atrial tachycardia Hypertension Hyperlipidemia Former nicotine dependence Lung nodule, supposed to have PET scan outpatient PLAN: Obtain limited 2D echo to assess cardiac structure and function Continue IV heparin Add aspirin 81 mg daily Continue home cardiac medications Patient to undergo cardiac catheterization today with Dr. Hager Further recommendations pending patient course Nurse practitioner note has been reviewed by physician. Signing provider agrees with the documented findings, assessment, and plan of care documented by MOLD SPRAYER as a scribe. Past Medical History Past Medical History: Cancer, COPD, GERD/Reflux, Hyperlipidemia, Hypertension Additional Past Medical History / Comment(s): prostate History of Any Multi-Drug Resistant Organisms: None Reported Past Surgical History: Cholecystectomy, Orthopedic Surgery Additional Past Surgical History / Comment(s): excision of bunion, cryoablate p rostate, colonoscopy Past Psychological History: No Psychological Hx Reported Smoking Status: Former smoker Past Alcohol Use History: None Reported Past Drug Use History: None Reported Medications and Allergies Home Medications Medication Instructions Recorded Confirmed Type Cetirizine HCl [Zyrtec] 10 mg PO DAILY 02/08/24 02/17/24 History Omeprazole [PriLOSEC] 20 mg PO HS 02/08/24 02/17/24 History Aspirin 81 mg PO DAILY #30 tab 02/10/24 02/17/24 Rx Losartan [Cozaar] 50 mg PO HS #60 tab 02/10/24 02/17/24 Rx Metoprolol Succinate [Metoprolol 25 mg PO DAILY #30 tab 02/10/24 02/17/24 Rx Succinate ER] Simvastatin 20 mg PO HS #30 tablet 02/10/24 02/17/24 Rx amLODIPine [Norvasc] 5 mg PO DAILY #30 tab 02/10/24 02/17/24 Rx Allergies Allergy/AdvReac Type Severity Reaction Status Date / Time Penicillins Allergy Rash/Hives Verified 02/17/24 10:37 Sulfa (Sulfonamide Allergy Rash/Hives Verified 02/17/24 10:37 Antibiotics) steroid injection (unknown) AdvReac Dizziness Uncoded 02/17/24 10:37 Physical Exam Vitals: Vital Signs Temp Pulse Resp BP Pulse Ox 02/18/24 06:45 87 18 109/73 93 L 02/18/24 03:53 87 16 118/76 94 L 02/18/24 01:03 79 18 103/71 96 02/17/24 18:02 96 18 111/80 95 02/17/24 15:59 92 18 101/70 95 02/17/24 14:42 98.3 F 94 20 114/78 95 02/17/24 14:30 104 H 20 112/77 95 02/17/24 14:00 96 20 113/73 96 02/17/24 12:30 98.4 F 91 20 105/70 95 02/17/24 11:02 98.0 F 102 H 17 100/68 96 Results 02/18/24 11:05 02/17/24 10:35 Cardiac Enzymes 02/17/24 02/17/24 02/17/24 Range/Units 10:35 10:35 12:33 AST 24 (17-59) U/L Troponin I <0.012 0.057 H* (0.000-0.034) ng/mL 02/17/24 02/18/24 Range/Units 12:52 05:14 AST (17-59) U/L Troponin I 0.078 H* 0.121 H* (0.000-0.034) ng/mL Coagulation 02/17/24 Range/Units 10:35 PT 10.6 (10.0-12.5) sec APTT 26.2 (22.0-30.0) sec Lipids 02/18/24 Range/Units 05:14 Triglycerides 143.00 (0.00-149.00) mg/dL Cholesterol 155.00 (0.00-200.00) mg/dL HDL Cholesterol 37.20 L (40.00-60.00) mg/dL Cholesterol/HDL Ratio 4.17 Ratio CBC 02/17/24 Range/Units 10:35 WBC 12.1 H (3.8-10.6) k/uL RBC 5.80 (4.30-5.90) m/uL Hgb 17.8 H (13.0-17.5) gm/dL Hct 53.1 H (39.0-53.0) % Plt Count 315 (150-450) k/uL Comprehensive Metabolic Panel 04/18/24 Range/Units 10:35 Sodium 138 (137-145) mmol/L Potassium 4.1 (3.5-5.1) mmol/L Chloride 109 H (98-107) mmol/L Carbon Dioxide 20 L (22-30) mmol/L BUN 29 H (9-20) mg/dL Creatinine 0.98 (0.66-1.25) mg/dL Glucose 106 H (74-99) mg/dL Calcium 9.4 (8.4-10.2) mg/dL AST 24 (17-59) U/L ALT 26 (4-49) U/L Alkaline Phosphatase 85 (38-126) U/L Total Protein 7.1 (6.3-8.2) g/dL Albumin 3.9 (3.5-5.0) g/dL Current Medications Generic Name Dose Route Start Last Admin Trade Name Freq PRN Reason Stop Dose Admin Amlodipine Besylate 5 mg 02/18/24 09:00 02/18/24 09:06 Amlodipine 5 Mg Tab PO 5 mg DAILY TONY Administration Aspirin 325 mg 02/18/24 09:00 02/18/24 09:06 Aspirin 325 Mg Tab PO 325 mg DAILY TONY Administration Atorvastatin Calcium 40 mg 02/18/24 21:00 Atorvastatin 40 Mg Tab PO HS [facility] Heparin Sodium (Porcine) 0 unit 02/18/24 09:53 Heparin Sodium 1,000 Un/Ml (10ml Vl) IV PER PROTOCOL PRN Low PTT Protocol Heparin Sodium/Sodium Chloride 250 mls @ 15.105 mls/hr 02/18/24 10:00 25,000 unit/ Sodium Chloride IV .[id number] [facility] Protocol 18 UNITS/KG/HR Loratadine 10 mg 02/18/24 09:00 02/18/24 09:05 Loratadine 10 Mg Tab PO 10 mg DAILY TONY Administration Losartan Potassium 50 mg 02/17/24 21:00 02/17/24 20:15 Losartan 50 Mg Tab PO 50 mg HS [facility] Administration Metoprolol Succinate 25 mg 02/18/24 09:00 02/18/24 09:06 Metoprolol Succinate (Er) 25 Mg Tab.Er.24h PO 25 mg DAILY TONY Administration Morphine Sulfate 2 mg 02/18/24 09:56 Morphine Sulfate 2 Mg/Ml Syringe IVP Q6HR PRN Pain/Discomfort Nitroglycerin 0.4 mg 02/17/24 12:22 02/17/24 14:43 Nitroglycerin Sl Tabs 0.4 Mg Tab SUBLINGUAL 0.4 mg Q5M PRN Administration Chest Pain Nitroglycerin 1 inch 02/17/24 18:00 02/18/24 06:00 Nitroglycerin Oint 1 Inch/Gm Packet TOPICAL 1 inch Q6HR TONY Administration Pantoprazole Sodium 40 mg 02/17/24 21:00 02/17/24 20:09 Pantoprazole 40 Mg Tablet PO 40 mg HS TONY Administration 02/17/24 10:35 02/17/24 10:35
[2024-02-18] MEDS: SODIUM CHLORIDE 0.9% 1,000 ML IV SCH (14:00)
[2024-02-18] MEDS: HEPARIN SOD,PORK IN 0.45% NACL 25,000 UNIT in 0.45% NACL 1 250ML.BAG IV SCH ×2 (15:55→15:59)
[2024-02-18] MEDS: ATORVASTATIN 80 MG TAB PO STA (15:55)
[2024-02-18] MEDS: SODIUM CHLORIDE 0.9% 1,000 ML in EMPTY BAG 1 BAG IV SCH (15:55)
[2024-02-18] MEDS: ASPIRIN 325 MG TAB PO STA (15:59)
[2024-02-18] MEDS: ATORVASTATIN 80 MG TAB PO SCH (19:55)
[2024-02-18] MEDS: HEPARIN SODIUM,PORCINE 5,000 UNIT/ML 1 ML VIAL SQ SCH (19:55)
[2024-02-18] MEDS ORDERED: ATORVASTATIN 40 MG TAB PO SCH (21:00)
[2024-02-18] MEDS: ALPRAZolam 0.5 MG TAB PO PRN (22:52)
[2024-02-19] MEDS ORDERED: HEPARIN SODIUM,PORCINE 10,000 UNIT in SODIUM CHLORIDE 0.9% 1,000 ML IRRIGATION PRN (07:00)
[2024-02-19] MEDS ORDERED: HEPARIN SODIUM,PORCINE (1 ML) 2,500 UNIT in SODIUM CHLORIDE 0.9% 250 ML IRRIGATION PRN (07:00)
[2024-02-19 07:26] LABS: Basophils # (A) 0.1 k/uL (0-0.2); Basophils % (A) 1 %; Eosinophils # (A) 0.3 k/uL (0-0.7); Eosinophils % (A) 3 %; HCT 49.3 % (39.0-53.0); Lymphocytes # (A) 2.9 k/uL (1.0-4.8); Lymphocytes % (A) 25 %; MCH 29.8 pg (25.0-35.0); MCHC 32.4 g/dL (31.0-37.0); MCV 91.8 fL (80.0-100.0); Mean Platelet Volume 8.5; Monocytes # (A) 1.2 k/uL (0-1.0); Monocytes % (A) 10 %; Neutrophils # (A) 7.1 k/uL (1.3-7.7); Neutrophils % (A) 60 %; Platelet Count 335 k/uL (150-450); RBC 5.37 m/uL (4.30-5.90); RDW 12.9 % (11.5-15.5); WBC 11.9 k/uL (3.8-10.6)
[2024-02-19] MEDS: ASPIRIN 81 MG PO SCH (08:54)
[2024-02-19] MEDS: ISOSORBIDE MONONITRATE ER 30 MG TAB.ER.24H PO SCH (08:54)
--- NOTE | 2024-02-19 10:47 | P.CONS ---
History of Present Illness - Reason for Consult Consult date: 02/18/24 pulmonary nodule Requesting physician: Andre Jason - Chief Complaint chest pain SOB - History of Present Illness Mr. 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 After having had PSA elevation of around 5, he underwent prostate biopsy in April 2023 revealing adenocarcinoma in 2 of 12 cores in the left mid prostate with Shukri score 4+3 = 7, grade group 3. Cores involved 20% and 50% of positive biopsies. He eventually underwent cryoablation on 09/11/2023, which he tolerated without complications. Due to persistent left pleuritic chest pain and elevated D- dimer, he underwent CTA of the chest on 10/30/2023, which noted no evidence of pulmonary embolism, but did note mediastinal and hilar lymphadenopathy, which was noted to possibly been reactive. There is also noted mild increased groundglass markings that were nonspecific and may represent chronic changes. He subsequently underwent repeat CT of the chest without contrast on 01/05/2024 w ith no noted mediastinal or hilar lymphadenopathy. A new 0.7 cm spiculated nodule in the right upper lobe was noted. Repeat noncontrast CT of the chest was recommended in 6 months for short-term surveillance. He had been following with a order desk caller for pulmonary fibrosis. 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 Most recent PSA on 12/02/2023 was 1.23. He previously smoked cigars, but stopped smoking in 1995. His father was noted to have lung cancer and leukemia. Given decrease in PSA to 1.23 in December 2023, it is unlikely the spiculated nodule noted is related to his prostate cancer. Patient requested additional workup for the lung nodule as opposed to follow-up imaging in 6 months. Given his history of prostate adenocarcinoma, it is reasonable to proceed with PET/CT to ensure there are no other suspicious lesions. If there are no other suspicious lesions concerning for malignancy, we did discuss repeating CT of the chest in 3 to [address] was scheduled for 02/17/24, but was missed due to hospitalization. Will reschedule scan upon discharge Patient presented to the emergency room with complaints of chest pain and shortness of breath. On admission chest x-ray showed no acute pulmonary processes. Serial troponins were elevated and cardiology was consulted. Heparin drip and nitroglycerin were started. Patient underwent cardiac catheterization earlier today. With findings of mild to moderate noncritical CAD with 50% RPDA disease and a 50% diagonal disease. Right dominant system normal filling pr essures no gradient. CBC reviewed, WBC 13.4, hemoglobin 17.4, platelets 261,000. Patient is afebrile, hemodynamically stable. Review of Systems 10 point ROS is negative except as stated in the HPI Past Medical History Past Medical History: Cancer, COPD, GERD/Reflux, Hyperlipidemia, Hypertension Additional Past Medical History / Comment(s): prostate History of Any Multi-Drug Resistant Organisms: None Reported Past Surgical History: Cholecystectomy, Orthopedic Surgery Additional Past Surgical History / Comment(s): excision of bunion, cryoablate prostate, colonoscopy Past Psychological History: No Psychological Hx Reported Smoking Status: Former smoker Past Alcohol Use History: None Reported Past Drug Use History: None Reported Medications and Allergies Home Medications Medication Instructions Recorded Confirmed Type Cetirizine HCl [Zyrtec] 10 mg PO DAILY 02/08/24 02/17/24 History Omeprazole [PriLOSEC] 20 mg PO HS 02/08/24 02/17/24 History Aspirin 81 mg PO DAILY #30 tab 02/10/24 02/17/24 Rx Losartan [Cozaar] 50 mg PO HS #60 tab 02/10/24 02/17/24 Rx Metoprolol Succinate [Metoprolol 25 mg PO DAILY #30 tab 02/10/24 02/17/24 Rx Succinate ER] Simvastatin 20 mg PO HS #30 tablet 02/10/24 02/17/24 Rx amLODIPine [Norvasc] 5 mg PO DAILY #30 tab 02/10/24 02/17/24 Rx Allergies Allergy/AdvReac Type Severity Reaction Status Date / Time Penicillins Allergy Rash/Hives Verified 02/17/24 10:37 Sulfa (Sulfonamide Allergy Rash/Hives Verified 02/17/24 10:37 Antibiotics) steroid injection (unknown) AdvReac Dizziness Uncoded 02/17/24 10:37 Physical Exam Vitals: Vital Signs Pulse Resp BP Pulse Ox 02/18/24 11:30 78 18 108/76 98 02/18/24 06:45 87 18 109/73 93 L 02/18/24 03:53 87 16 118/76 94 L 02/18/24 01:03 79 18 103/71 96 02/17/24 18:02 96 18 111/80 95 02/17/24 15:59 92 18 101/70 95 Intake and Output 02/18/24 02/18/24 02/18/24 06:59 14:59 22:59 Intake Total 200 Balance 200 Intake: IV 200 - Constitutional General appearance: average body habitus, no acute distress - EENT Eyes: anicteric sclerae, EOMI ENT: hearing grossly normal - Respiratory breathing even and unlabored - Cardiovascular Rhythm: regular Heart sounds: normal: S1, S2 Abnormal Heart Sounds: no systolic murmur, no diastolic murmur, no rub, no S3 Gallop, no S4 Gallop, no click, no other - Gastrointestinal General gastrointestinal: soft, no tenderness - Integumentary Integumentary: no cyanotic - Neurologic Neurologic: CNII-XII intact - Musculoskeletal Musculoskeletal: strength equal bilaterally - Psychiatric Psychiatric: A&O x's 3 Results CBC & Chem 7: 02/19/24 06:51 02/17/24 10:35 Labs: Abnormal Lab Results - Last 24 Hours (Table) 02/18/24 02/18/24 02/18/24 Range/Units 05:14 05:14 11:05 WBC 13.4 H (3.8-10.6) k/uL Hct 53.6 H (39.0-53.0) % Neutrophils # 9.4 H (1.3-7.7) k/uL Monocytes # 1.1 H (0-1.0) k/uL APTT (22.0-30.0) sec D-Dimer (<0.60) mg/L FEU Troponin I 0.121 H* (0.000-0.034) ng/mL HDL Cholesterol 37.20 L (40.00-60.00) mg/dL 02/18/24 Range/Units 11:05 WBC (3.8-10.6) k/uL Hct (39.0-53.0) % Neutrophils # (1.3-7.7) k/uL Monocytes # (0-1.0) k/uL APTT 20.3 L (22.0-30.0) sec D-Dimer 1.80 H (<0.60) mg/L FEU Troponin I (0.000-0.034) ng/mL HDL Cholesterol (40.00-60.00) mg/dL Chest x-ray: report reviewed Assessment and Plan (1) Lung nodule Current Visit: Yes Status: Acute Priority: Low Code(s): R91.1 - SOLITARY PULMONARY NODULE SNOMED Code(s): 355960256 (2) Chest pain Current Visit: Yes Status: Acute Priority: High Code(s): R07.9 - CHEST PAIN, UNSPECIFIED SNOMED Code(s): 49840007 (3) Exertional dyspnea Current Visit: Yes Status: Acute Priority: High Code(s): R06.09 - OTHER FORMS OF DYSPNEA SNOMED Code(s): 08637354 Plan: NSTEMI: Presented with complaints of chest pain and shortness of breath. On admission chest x-ray showed no acute pulmonary processes. Serial troponins were elevated and cardiology was consulted. Heparin drip and nitroglycerin were started. -Underwent cardiac catheterization earlier today. With findings of mild to moderate noncritical CAD with 50% RPDA disease and a 50% diagonal disease. Right dominant system normal filling pressures no gradient. -Defer management to cardiology Lung nodule: -Full history in HPI -CTA of the chest on 10/30/2023, which noted no evidence of pulmonary embolism, but did note mediastinal and hilar lymphadenopathy, which was noted to possibly been reactive. There is also noted mild increased groundglass markings that were nonspecific and may represent chronic changes. He subsequently underwent repeat CT of the chest without contrast on 01/05/2024 with no noted mediastinal or hilar lymphadenopathy. A new 0.7 cm spiculated nodule in the right upper lobe was noted. -PET/CT was ordered to ensure there are no other suspicious lesions. If there are no other suspicious lesions concerning for malignancy, we did discuss repeating CT of the chest in 3 to 6 months. PET scan was scheduled for 02/17/24, but was missed due to hospitalization. Will reschedule scan upon discharge and subsequent clinic f/u, with further recommendations pending scan results Doctor attests: I performed a history and physical examination of this patient, developed impression and plan of care. Discussed with dictator. I agree with dictators note, documented as a scribe.
--- NOTE | 2024-02-19 11:33 | P.PN ---
Subjective Progress Note Date: 02/19/24 Principal diagnosis: Chest discomfort and shortness of breath The patient is a pleasant 74-year-old gentleman with a past medical history significant for coronary artery disease documented on heart catheterization yesterday as well as hypertension and dyslipidemia was admitted to the hospital with chest discomfort and ruled in for acute coronary event. He underwent a heart catheterization by Dr. Hager and that revealed intermediate nonobstructive disease involving the ostial PDA of RCA which was treated medically. February 19, 2024 The patient was seen and evaluated this morning. Currently he is not having any chest pain or shortness of breath. It was noted that he has been experiencing intermittent episodes of bradycardia concerning for AV block. An EKG is in proc ess to be done. He is on metoprolol which we are going to hold at this point. The echo is still pending. D-dimer is abnormal and CT scan is in process to be done to rule out pulmonary embolism. Beside that he is stable. His heart rate is in the upper 40s and lower 50s. Examination reveals regular rhythm with clear breathing sounds bilaterally and no edema was noted Assessment Coronary artery disease as described above Mildly abnormal troponin Elevated D-dimer and PE to be ruled out Bradycardia with questionable AV block Multiple comorbid conditions including hypertension and dyslipidemia Plan Avoid any AV kirt brent agents With that being said DC metoprolol Follow-up on the CT scan Follow-up on the echo Obtain twelve-lead EKG Objective - Vital Signs Vital signs: Vital Signs Temp 98.2 F 02/19/24 08:51 Pulse 44 L 02/19/24 08:51 Resp 18 02/19/24 08:51 BP 100/58 02/19/24 08:51 Pulse Ox 95 02/19/24 08:51 FiO2 Intake & Output 02/18/24 02/19/24 02/19/24 18:59 06:59 18:59 Intake Total 318 240 Balance 318 240 Weight 83.915 kg Intake: IV 200 Oral 118 240 Other: # Voids 1 # Bowel Movements 1 - Labs CBC & Chem 7: 02/19/24 06:51 02/17/24 10:35 Labs: Abnormal Lab Results - Last 24 Hours (Table) 02/18/24 02/18/24 02/19/24 Range/Units 11:05 11:05 06:51 WBC 13.4 H 11.9 H (3.8-10.6) k/uL Hct 53.6 H (39.0-53.0) % Neutrophils # 9.4 H (1.3-7.7) k/uL Monocytes # 1.1 H 1.2 H (0-1.0) k/uL APTT 20.3 L (22.0-30.0) sec D-Dimer 1.80 H (<0.60) mg/L FEU
--- NOTE | 2024-02-19 13:01 | CT ---
EXAMINATION TYPE: CT chest angio for PE DATE OF EXAM: 02/19/2024 COMPARISON: Radiograph 02/17/2024 HISTORY: 74-year-old male with chest pain, dyspnea, shortness of breath Dyspnea and elevated d-dimer TECHNIQUE: Contiguous axial scanning of the chest performed with IV Contrast, patient injected with 8 4ml mL of Isovue 370. Coronal/sagittal MIP reconstructions performed. CT DLP: 455.6 mGycm Automated exposure control for dose reduction was used. FINDINGS: Heart upper limits of normal in size without pericardial effusion. No flattening of the interventricu lar septum or reflux of contrast into the hepatic veins. Aorta normal caliber with conventional branching anatomy. Nonspecific prominent AP window lymph node 8 mm. Subcarinal lymph node 1 cm. Left hilar node 1.0 cm. Right hilar lymph node 1.0 cm. No other thoracic adenopathy. There is satisfactory opacification of the pulmonary arterial system. Mildly enlarged caliber to the main right and left pulmonary arteries measuring up to 2.7 cm suggests underlying pulmonary arterial hypertension. There is some breathing motion artifact limiting distal branches in the lower lungs. Ot herwise, no definite pulmonary embolus is seen. Some scattered mild subpleural reticular changes throughout. Additional strandy atelectasis in the lo wer lungs. No consolidation or pleural effusion. A couple pulmonary nodules on the right measuring up to 5 mm. Six-month follow-up to reassess. Refer to axial image 27 and 74. Visualized upper abdomen shows a couple of hepatic cysts measuring up to 1.8 cm. Accessory left renal artery. [facility] mid and lower thoracic spine. IMPRESSION: 1. MILD BREATHING MOTION ARTIFACT. NO DEFINITE PULMONARY EMBOLUS. 2. SUGGESTION OF SOME MILD SCATTERED INTERSTITIAL FIBROSIS. THERE MAY ALSO BE UNDERLYING PULMONARY AR TERIAL HYPERTENSION. 3. A COUPLE PULMONARY NODULES ON THE RIGHT MEASURING UP TO 5 MM. SIX-MONTH FOLLOW-UP CT CHEST TO REAS SESS. 4. A FEW MEDIASTINAL AND HILAR LYMPH NODES ARE BORDERLINE ENLARGED MEASURING UP TO 1.0 CM. THESE ARE PROBABLY REACTIVE/POST INFLAMMATORY AND SHOULD ALSO BE REASSESSED AT FOLLOW-UP.
--- NOTE | 2024-02-19 14:23 | P.PN ---
Subjective Progress Note Date: 02/19/24 patient is a 74-year-old gentleman with past medical history significant for hypertension, hyperlipidemia who presented to the hospital for chest pain. Patient was worked up in the hospital a week ago with similar complaint at that time patient had stress test done which was negative and patient was cleared for discharge by cardiology. Patient stated that ever since discharge has been noticing that he gets short of breath on exertion. Patient also complaining of chest pain brought about by exertion, chest pain is pressure-like, central in location, nonradiating, aggravated by exertion, and relieved by rest. Patient stated that he even passed out because of chest pressure on walking up a flight of stairs. Denies any orthopnea or PND. There is no complaint of swelling of feet. Because of the symptoms, patient brought to the ER Initial lab work done in the ER showed WBC 12.1, hemoglobin 17.8, platelet count 315, sodium 138, potassium 4.1, BUN 20, creatinine 0.98, troponin 0.012, repeat was 0.057 EKG done in the ER showed heart rate of 90, no ST segment elevation or depression seen, no T-wave inversions seen. Chest x-ray done in the ER no acute pulmonary process Patient admitted to internal medicine service 02/18. Patient seen and examined. 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 beta blockers were discontinued REVIEW OF SYSTEMS: CONSTITUTIONAL: No fever, no malaise,. CARDIOVASCULAR: No chest pain, no palpitations, no syncope. PULMONARY: No shortness of breath, no cough, GASTROINTESTINAL: No diarrhea, no nausea, no vomiting, no abdominal pain. NEUROLOGICAL: No headaches, no weakness, PHYSICAL EXAMINATION: GENERAL: The patient is alert and oriented x3, not in any acute distress. Well developed, well nourished. HEENT: Pupils are round and equally reacting to light. EOMI. No scleral icterus. No conjunctival pallor. Normocephalic, atraumatic. No pharyngeal erythema. No thyromegaly. CARDIOVASCULAR: S1 and S2 present. No murmurs, rubs, or gallops. PULMONARY: Chest is clear to auscultation, no wheezing or crackles. ABDOMEN: Soft, nontender, nondistended, normoactive bowel sounds. No palpable organomegaly. MUSCULOSKELETAL: No joint swelling or deformity. EXTREMITIES: No cyanosis, clubbing, or pedal edema. NEUROLOGICAL: Gross neurological examination did not reveal any focal deficits. SKIN: No rashes. Assessment and plan Acute coronary syndrome Hypertension Lung nodule Hyperlipidemia History of prostate cancer Monitor vital signs Monitor CBC Monitor CMP Cardiac cath done on 02/17 showed Mild to moderate noncritical CAD with 50% RPDA disease and a 50% diagonal disease continue aspirin, Lipitor continue Imdur, losartan avoid AV kirt blocking agents DC metoprolol Ordered CT chest to rule out PE cardiology recommended aggressive risk factor modification and medical treatment Labs and medication were reviewed.. Continue same treatment. Continue with symptomatic treatment. Resume home medication. Monitor labs and vitals. DVT and GI prophylaxis. Further recommendations as per clinical course of the patient Dictation was produced using [employer] dictation software. please excuse any grammatical, word or spelling errors. Objective - Vital Signs Vital signs: Vital Signs Temp 98.2 F 02/19/24 08:51 Pulse 44 L 02/19/24 08:51 Resp 18 02/19/24 08:51 BP 100/58 02/19/24 08:51 Pulse Ox 95 02/19/24 08:51 FiO2 Intake & Output 02/18/24 02/19/24 02/19/24 18:59 06:59 18:59 Intake Total 318 240 Balance 318 240 Weight 83.915 kg Intake: IV 200 Oral 118 240 Other: # Voids 1 # Bowel Movements 1 - Labs CBC & Chem 7: 02/19/24 06:51 02/17/24 10:35 Labs: Abnormal Lab Results - Last 24 Hours (Table) 02/18/24 02/18/24 02/19/24 Range/Units 11:05 11:05 06:51 WBC 13.4 H 11.9 H (3.8-10.6) k/uL Hct 53.6 H (39.0-53.0) % Neutrophils # 9.4 H (1.3-7.7) k/uL Monocytes # 1.1 H 1.2 H (0-1.0) k/uL APTT 20.3 L (22.0-30.0) sec D-Dimer 1.80 H (<0.60) mg/L FEU
--- NOTE | 2024-02-19 15:34 | CA ---
Transthoracic Echo Report Name: August Newberry Age: 74 Gender: M : 1950 Exam Date: 02/19/2024 09:02 Exam Location: [facility] Ht (in): 69 Wt (lb): 185 Ordering Physician: Sarah Kaiser Attending/Referring Phys: [id number], Awilda [employer] T[employer] Leidy Coyle, JUDITH Procedure CPT: Indications: LV function, NSTEMI, wall motion Cardiac Hx: limited study Technical Quality: Good Contrast 1: Total Dose (mL): Contrast 2: Total Dose (mL): MEASUREMENTS (Male / Female) Normal Values DOPPLER AV Peak Velocity 173.3 cm/s AV Peak Gradient 12.0 mmHg AI Peak Velocity 342.6 cm/s AI Peak Gradient 47.0 mmHg AI Pressure Half Time 733.9 ms FINDINGS Left Ventricle Left ventricular ejection fraction is estimated at 55-60 %. No obvious regional wall motion abnormalities. Right Ventricle Right Atrium Left Atrium Mitral Valve Mitral valve thickened. Mild mitral regurgitation. Aortic Valve Trileaflet aortic valve. Aortic valve sclerosis. Mild to moderate aortic regurgitation. Tricuspid Valve Structurally normal tricuspid valve. No tricuspid stenosis, regurgitation or prolapse. Pulmonic Valve Structurally normal pulmonic valve. No pulmonic regurgitation. Pericardium Normal pericardium. Aorta CONCLUSIONS Normal LV systolic function. No wall motion abnormalities Nexo-wy-[id number] aortic regurgitation Previewed by: Dr. Edilberto Groe MD (Electronically Signed) Final Date: 19 February 2024 15:33
[2024-02-19] MEDS: IV FLUID CONTINUATION 1,000 ML IV ONE (19:40)
[2024-02-19] MEDS: LIDOCAINE 1% INJ 10MG/ML (20 ML MDV) SQ ONE (19:45)
[2024-02-19] MEDS: MIDAZOLAM 2 MG/2 ML VIAL IVP ONE (19:45)
--- NOTE | 2024-02-19 19:58 | P.PCN ---
Date of Procedure: 02/19/24 Operative Findings: Transvenous temporary pacemaker insertion Performing physician Edilberto Gore MD Procedure performed 1. Successful placement of transvenous temporary pacemaker from right common femoral vein 2. Ultrasound-guided access of the right common femoral vein Indication Symptomatic heart block Complication None Level of sedation Moderate with a sedation length of 6 minutes Procedure description After obtaining informed consent the patient was brought to the cardiac Commercial [employer]. The right common femoral vein was cannulated using micropuncture technique under ultrasound guidance the micropuncture wire passed easily and then under fluoroscopy guidance a balloontipped temporary pacer was advanced to the right ventricle apex. Subsequently the pacer was set up at the backup of heart rate of 60 bpm and amp of 2.5. The patient tolerated the procedure very well. Postprocedure management Continue holding any AV kirt brent agents Monitor the patient for additional 24 hours of any metoprolol or any AV kirt brent agents Monitor the patient in the ICU Determine the need for permanent pacemaker in the next 24 hours
[2024-02-19 20:16] LABS: Glucose,Whole Blood 134 mg/dL (70-110)
--- NOTE | 2024-02-20 09:08 | P.PN ---
Subjective Progress Note Date: 02/20/24 Principal diagnosis: Chest discomfort and shortness of breath The patient is a pleasant 74-year-old gentleman with a past medical history significant for coronary artery disease documented on heart catheterization yesterday as well as hypertension and dyslipidemia was admitted to the hospital with chest discomfort and ruled in for acute coronary event. He underwent a heart catheterization by Dr. Hager and that revealed intermediate nonobstructive disease involving the ostial PDA of RCA which was treated medically. February 19, 2024 The patient was seen and evaluated this morning. Currently he is not having any chest pain or shortness of breath. It was noted that he has been experiencing intermittent episodes of bradycardia concerning for AV block. An EKG is in proc ess to be done. He is on metoprolol which we are going to hold at this point. The echo is still pending. D-dimer is abnormal and CT scan is in process to be done to rule out pulmonary embolism. Beside that he is stable. His heart rate is in the upper 40s and lower 50s. Examination reveals regular rhythm with clear breathing sounds bilaterally and no edema was noted February 20, 2024 The patient was seen and evaluated this morning. He underwent temporary pacemaker placement from right femoral vein approach yesterday. He has been using the pacer intermittently. He need to undergo permanent pacemaker in the next 24 hour. Clinically he seems to be stable otherwise and no symptoms of any chest pain or chest discomfort or shortness of breath or any dizziness or lightheadedness. Currently he is not on any AV kirt brent agents. The echo revealed normal LV systolic function with mild to moderate aortic insufficiency. The examination revealed regular rhythm with a distant heart sounds and systolic murmur and clear breathing sounds bilaterally and no edema was noted Assessment Coronary artery disease as described above Elevated D-dimer and PE to be ruled out Bradycardia with high AV block Multiple comorbid conditions including hypertension and dyslipidemia Plan Avoid any AV kirt brent agents Proceed with permanent pacemaker in the next 24 hours Objective - Vital Signs Vital signs: Vital Signs Temp 97.7 F 02/20/24 05:00 Pulse 65 02/20/24 07:00 Resp 12 02/20/24 07:00 BP 136/85 02/20/24 07:00 Pulse Ox 98 02/20/24 07:00 FiO2 Intake & Output 02/19/24 02/20/24 02/20/24 18:59 06:59 18:59 Intake Total 684 289 60 Output Total 775 650 Balance 281 -520 -364 Weight 108.2 kg Intake: IV 289 60 KVO 0.9 NS 180 60 Sodium Chloride 0.9% 1, 84 000 ml In Empty Bag 1 bag @ 1 ML/KG/HR 83.915 mls/ hr IV .[id number] [facility] Rx#: [id number] Oral 684 Output: Urine 775 650 Other: Voiding Method Urinal Urinal # Voids 2 1 # Bowel Movements 1 - Labs CBC & Chem 7: 02/19/24 06:51 02/17/24 10:35 Labs: Abnormal Lab Results - Last 24 Hours (Table) 02/19/24 Range/Units 20:15 POC Glucose (mg/dL) 134 H (70-110) mg/dL
[2024-02-20 12:15] LABS: Basophils # (A) 0.1 k/uL (0-0.2); Basophils % (A) 1 %; Eosinophils # (A) 0.2 k/uL (0-0.7); Eosinophils % (A) 2 %; HCT 47.2 % (39.0-53.0); HGB 15.1 gm/dL (13.0-17.5); Lymphocytes # (A) 1.8 k/uL (1.0-4.8); Lymphocytes % (A) 20 %; MCH 29.9 pg (25.0-35.0); MCV 93.4 fL (80.0-100.0); Mean Platelet Volume 8.6; Monocytes # (A) 0.6 k/uL (0-1.0); Monocytes % (A) 6 %; Neutrophils # (A) 6.1 k/uL (1.3-7.7); Neutrophils % (A) 69 %; Platelet Count 297 k/uL (150-450); RBC 5.05 m/uL (4.30-5.90); RDW 12.7 % (11.5-15.5); WBC 8.8 k/uL (3.8-10.6)
[2024-02-20 12:25] LABS: ALT 24 U/L (4-49); AST 22 U/L (17-59); African American GFR (CKD) >90 (>60 ml/min/1.73 sqM); Albumin 3.6 g/dL (3.5-5.0); Alkaline Phosphatase 74 U/L (38-126); Anion Gap 5 mmol/L; Blood Urea Nitrogen 17 mg/dL (9-20); Calcium 8.8 mg/dL (8.4-10.2); Carbon Dioxide 23 mmol/L (22-30); Chloride 109 mmol/L (98-107); Glucose 91 mg/dL (74-99); Non-African American GFR(CKD) 87 (>60 ml/min/1.73 sqM); Potassium 4.3 mmol/L (3.5-5.1); Sodium 137 mmol/L (137-145); Total Bilirubin 0.7 mg/dL (0.2-1.3); Total Protein 6.4 g/dL (6.3-8.2)
--- NOTE | 2024-02-20 13:12 | P.PN ---
Subjective Progress Note Date: 02/20/24 patient is a 74-year-old gentleman with past medical history significant for hypertension, hyperlipidemia who presented to the hospital for chest pain. Patient was worked up in the hospital a week ago with similar complaint at that time patient had stress test done which was negative and patient was cleared for discharge by cardiology. Patient stated that ever since discharge has been noticing that he gets short of breath on exertion. Patient also complaining of chest pain brought about by exertion, chest pain is pressure-like, central in location, nonradiating, aggravated by exertion, and relieved by rest. Patient stated that he even passed out because of chest pressure on walking up a flight of stairs. Denies any orthopnea or PND. There is no complaint of swelling of feet. Because of the symptoms, patient brought to the ER Initial lab work done in the ER showed WBC 12.1, hemoglobin 17.8, platelet count 315, sodium 138, potassium 4.1, BUN 20, creatinine 0.98, troponin 0.012, repeat was 0.057 EKG done in the ER showed heart rate of 90, no ST segment elevation or depression seen, no T-wave inversions seen. Chest x-ray done in the ER no acute pulmonary process Patient admitted to internal medicine service 02/18. Patient seen and examined. 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 beta blockers were discontinued 02/19. Patient seen and examined. Patient had to be transferred to ICU over night as patient was very bradycardic, cardiology placed a transvenous temporary pacemaker. Currently being monitored in the ICU. Plan is for patient to have a permanent pacemaker REVIEW OF SYSTEMS: CONSTITUTIONAL: No fever, no malaise,. CARDIOVASCULAR: No chest pain, no palpitations, no syncope. PULMONARY: No shortness of breath, no cough, GASTROINTESTINAL: No diarrhea, no nausea, no vomiting, no abdominal pain. NEUROLOGICAL: No headaches, no weakness, PHYSICAL EXAMINATION: GENERAL: The patient is alert and oriented x3, not in any acute distress. Well developed, well nourished. HEENT: Pupils are round and equally reacting to light. EOMI. No scleral icterus. No conjunctival pallor. Normocephalic, atraumatic. No pharyngeal erythema. No thyromegaly. CARDIOVASCULAR: S1 and S2 present. No murmurs, rubs, or gallops. PULMONARY: Chest is clear to auscultation, no wheezing or crackles. ABDOMEN: Soft, nontender, nondistended, normoactive bowel sounds. No palpable organomegaly. MUSCULOSKELETAL: No joint swelling or deformity. EXTREMITIES: No cyanosis, clubbing, or pedal edema. NEUROLOGICAL: Gross neurological examination did not reveal any focal deficits. SKIN: No rashes. Assessment and plan Acute coronary syndrome Hypertension Lung nodule Hyperlipidemia History of prostate cancer Monitor vital signs Monitor CBC Monitor CMP Cardiac cath done on 02/17 showed Mild to moderate noncritical CAD with 50% RPDA disease and a 50% diagonal disease S/p transvenous temporary pacemaker on 02/18 continue aspirin, Lipitor continue Imdur, losartan avoid AV kirt blocking agents cardiology following and recommended aggressive risk factor modification and medical treatment Labs and medication were reviewed.. Continue same treatment. Continue with symptomatic treatment. Resume home medication. Monitor labs and vitals. DVT and GI prophylaxis. Further recommendations as per clinical course of the patient Dictation was produced using [employer] dictation software. please excuse any gr ammatical, word or spelling errors. Objective - Vital Signs Vital signs: Vital Signs Temp 97.6 F 02/20/24 08:00 Pulse 72 02/20/24 09:00 Resp 13 02/20/24 09:00 BP 129/84 02/20/24 09:00 Pulse Ox 96 02/20/24 09:00 FiO2 Intake & Output 02/19/24 02/20/24 02/20/24 18:59 06:59 18:59 Intake Total 684 289 260 Output Total 775 650 Balance 684 -486 -390 Weight 108.2 kg Intake: IV 289 60 KVO 0.9 NS 180 60 Sodium Chloride 0.9% 1, 84 000 ml In Empty Bag 1 bag @ 1 ML/KG/HR 83.915 mls/ hr IV .[id number] [facility] Rx#: [id number] Oral 684 200 Output: Urine 775 650 Other: Voiding Method Urinal Urinal # Voids 2 1 # Bowel Movements 1 - Labs CBC & Chem 7: 02/20/24 11:14 02/20/24 11:14 Labs: Abnormal Lab Results - Last 24 Hours (Table) 02/19/24 Range/Units 20:15 POC Glucose (mg/dL) 134 H (70-110) mg/dL
[2024-02-21 06:23] LABS: HGB 15.6 gm/dL (13.0-17.5); MCH 29.9 pg (25.0-35.0); MCHC 32.4 g/dL (31.0-37.0); MCV 92.2 fL (80.0-100.0); Mean Platelet Volume 8.7; Platelet Count 298 k/uL (150-450); RBC 5.21 m/uL (4.30-5.90); RDW 12.7 % (11.5-15.5); WBC 9.3 k/uL (3.8-10.6)
[2024-02-21 06:44] LABS: ALT 25 U/L (4-49); AST 23 U/L (17-59); African American GFR (CKD) >90 (>60 ml/min/1.73 sqM); Albumin 3.6 g/dL (3.5-5.0); Alkaline Phosphatase 70 U/L (38-126); Anion Gap 9 mmol/L; Blood Urea Nitrogen 17 mg/dL (9-20); Calcium 8.8 mg/dL (8.4-10.2); Carbon Dioxide 21 mmol/L (22-30); Chloride 108 mmol/L (98-107); Glucose 93 mg/dL (74-99); Non-African American GFR(CKD) 88 (>60 ml/min/1.73 sqM); Potassium 4.3 mmol/L (3.5-5.1); Sodium 138 mmol/L (137-145); Total Bilirubin 0.8 mg/dL (0.2-1.3); Total Protein 6.4 g/dL (6.3-8.2)
[2024-02-21] MEDS ORDERED: ceFAZolin 1 GM in SODIUM CHLORIDE 0.9% IRRIG BTL 250 ML IRRIGATION PRN (07:00)
[2024-02-21] MEDS: SODIUM CHLORIDE 0.9% 1,000 ML IV SCH ×2 (08:02→08:11)
[2024-02-21 09:22] LABS: Glucose,Whole Blood 100 mg/dL (70-110)
--- NOTE | 2024-02-21 10:29 | CDI ---
Documentation Clarification Form Date: 02/21/2024 09:52:46 AM From: Niharika Beatty RN CCDS Phone: [phone] Admit Date: 02/17/2024 12:23:00 PM Patient Name: August Newberry Visit Number: [id number] Discharge Date: ATTENTION: The Clinical Documentation Specialists (CDI) and [facility] Coding Staff appreciate your assistance in clarifying documentation. Please respond to the clarification below the line at the bottom and electronically sign. The CDI & [facility] Coding staff will review the response and follow-up if needed. Please note: Queries are made part of the Legal Health Record. If you have any questions, please contact the author of this message via ITS. Dr. Andre Jason The patients principal diagnosis the diagnosis that was chiefly responsible for the admission - has not been clearly identified and clarification is requested. The patient presented with chest pressure walking up a flight of stairs and passed out. History/Risk factors: 75 y/o male was hospitalized a week ago with similar complaints of chest pain with exertion and had a stress test that was negative. Medical History: HTN, HLD and prostate cancer. Clinical Indicators: Lab findings, 02/16: Wbc 12.1, Hgb 17.8, Neutrophils 8.8, Troponin <0.012, 0.078, 0.121 Cardiac catheterization, 02/17: Mild to moderate noncritical CAD with 50% RPDA disease and a 50% diagonal disease. Right dominant system normal filling pressues no gradient. Final procedure diagnosis: Non ST elevation IL with a noncritical CAD. Cardiology consult, 02/17: Chest pain, Non-STEMI Paroxysmal atrial tachycardia. Vital Signs, 02/16: B/P 111/77; HR 114; Temp 97.7 F Oral; RR 18; SpO2 98% room air Treatment: Cardiac Catheterization. Consults: Cardiology see above. In your professional opinion, can you please clarify which diagnosis, after study, was the reason chiefly responsible for the admission? [x ] NSTEMI [ ] Other, please specify [ ] Unable to determine (Template Last Revised: December 2020) MTDD
[2024-02-21 12:56] LABS: Eosinophils # (M) 0.09 k/uL (0-0.7); Lymphocytes # (M) 1.95 k/uL (1.0-4.8); Monocytes # (M) 0.84 k/uL (0-1.0); Neutrophils # (M) 6.42 k/uL (1.3-7.7); Neutrophils % (M) 69 %; Nucleated Red Blood Cells 0 /100 WBC (0-0); Total Cells Counted 100
[2024-02-21 13:01] LABS: RBC Morphology Normal
[2024-02-21] MEDS ORDERED: ALBUTEROL NEBULIZED 2.5 MG/3 ML INHALATION PRN (15:45)
--- NOTE | 2024-02-21 22:46 | P.PN ---
Subjective Chest discomfort and shortness of breath The patient is a pleasant 74-year-old gentleman with a past medical history significant for coronary artery disease documented on heart catheterization yesterday as well as hypertension and dyslipidemia was admitted to the hospital with chest discomfort and ruled in for acute coronary event. He underwent a heart catheterization by Dr. Hager and that revealed intermediate nonobstructive disease involving the ostial PDA of RCA which was treated medically. February 19, 2024 The patient was seen and evaluated this morning. Currently he is not having any chest pain or shortness of breath. It was noted that he has been experiencing intermittent episodes of bradycardia concerning for AV block. An EKG is in process to be done. He is on metoprolol which we are going to hold at this point. The echo is still pending. D-dimer is abnormal and CT scan is in process to be done to rule out pulmonary embolism. Beside that he is stable. His heart rate is in the upper 40s and lower 50s. Examination reveals regular rhythm with clear breathing sounds bilaterally and no edema was noted February 20, 2024 The patient was seen and evaluated this morning. He underwent temporary pacemaker placement from right femoral vein approach yesterday. He has been using the pacer intermittently. He need to undergo permanent pacemaker in the next 24 hour. Clinically he seems to be stable otherwise and no symptoms of any chest pain or chest discomfort or shortness of breath or any dizziness or lightheadedness. Currently he is not on any AV kirt brent agents. The echo revealed normal LV systolic function with mild to moderate aortic insufficiency. 02/20 Patient denies any chest pain or pressure. He does have some continued palpiations. He admits he slept better last night when TVP was set at 60 rather than 50 however when he is paced often can sometimes feel palpitations. The examination revealed regular rhythm with a distant heart sounds and systolic murmur and clear breathing sounds bilaterally and no edema was noted Assessment Coronary artery disease as described above Elevated D-dimer and PE to be ruled out Bradycardia with high AV block Multiple comorbid conditions including hypertension and dyslipidemia Plan Avoid any AV kirt brent agents Logistically PPM will be able to be performed 02/21. NPO after midnight for PPM 02/21. Objective - Vital Signs Vital signs: Vital Signs Temp 98.4 F 02/21/24 20:00 Pulse 69 02/21/24 22:00 Resp 14 02/21/24 22:00 BP 111/68 02/21/24 22:00 Pulse Ox 98 02/21/24 22:00 FiO2 Intake & Output 02/21/24 02/21/24 02/22/24 06:59 18:59 06:59 Intake Total 240 620 150 Output Total 900 625 200 Balance -660 -5 -50 Weight 110 kg Intake: IV 240 620 150 KVO 0.9 NS 240 620 150 Output: Urine 900 625 200 Other: Voiding Method Urinal Urinal Urinal # Voids 1 # Bowel Movements 1 - Labs CBC & Chem 7: 02/21/24 05:43 02/21/24 05:43 Labs: Abnormal Lab Results - Last 24 Hours (Table) 02/21/24 Range/Units 05:43 Chloride 108 H (98-107) mmol/L Carbon Dioxide 21 L (22-30) mmol/L
--- NOTE | 2024-02-22 05:59 | P.PN ---
Subjective Progress Note Date: 02/21/24 patient is a 74-year-old gentleman with past medical history significant for hypertension, hyperlipidemia who presented to the hospital for chest pain. Patient was worked up in the hospital a week ago with similar complaint at that time patient had stress test done which was negative and patient was cleared for discharge by cardiology. Patient stated that ever since discharge has been noticing that he gets short of breath on exertion. Patient also complaining of chest pain brought about by exertion, chest pain is pressure-like, central in location, nonradiating, aggravated by exertion, and relieved by rest. Patient stated that he even passed out because of chest pressure on walking up a flight of stairs. Denies any orthopnea or PND. There is no complaint of swelling of feet. Because of the symptoms, patient brought to the ER Initial lab work done in the ER showed WBC 12.1, hemoglobin 17.8, platelet count 315, sodium 138, potassium 4.1, BUN 20, creatinine 0.98, troponin 0.012, repeat was 0.057 EKG done in the ER showed heart rate of 90, no ST segment elevation or depression seen, no T-wave inversions seen. Chest x-ray done in the ER no acute pulmonary process Patient admitted to internal medicine service 02/18. Patient seen and examined. 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 beta blockers were discontinued 02/19. Patient seen and examined. Patient had to be transferred to ICU over night as patient was very bradycardic, cardiology placed a transvenous temporary pacemaker. Currently being monitored in the ICU. Plan is for patient to have a permanent pacemaker 02/21/2024 Patient evaluated today, remains in the ICU with temporary transvenous pacemaker in place. Continues to report dizziness. Patient additionally states he was diagnosed recently with pulmonary fibrosis and scarring in the left leg. Having intermittent episodes of shortness of breath mostly at bedtime. States he feel this is also related to the statin and tylenol. He has tried albuterol inhaler in the past given to him by his PCP states it did not help. He is currently on room air with oxygen saturations in the high 90s. He will undergo permanent pacemaker placement later today. Review of Systems Constitutional: Denied any fatigue denied any fever. Cardio vascular: denied any chest pain, palpitations Gastrointestinal: denied any nausea, vomiting, diarrhea Pulmonary: Denied any shortness of breath cough Neurologic denied any new focal deficits Reports dizziness All inpatient medications were reviewed and appropriate changes in these medications as dictated in the interval history and assessment and plan. PHYSICAL EXAMINATION: GENERAL: The patient is alert and oriented x3, not in any acute distress. Well developed, well nourished. HEENT: Pupils are round and equally reacting to light. EOMI. No scleral icterus. No conjunctival pallor. Normocephalic, atraumatic. No pharyngeal erythema. No thyromegaly. CARDIOVASCULAR: S1 and S2 present. No murmurs, rubs, or gallops. PULMONARY: Chest is clear to auscultation, no wheezing or crackles. ABDOMEN: Soft, nontender, nondistended, normoactive bowel sounds. No palpable organomegaly. MUSCULOSKELETAL: No joint swelling or deformity. EXTREMITIES: No cyanosis, clubbing, or pedal edema. NEUROLOGICAL: Gross neurological examination did not reveal any focal deficits. SKIN: No rashes. Assessment and plan Acute coronary syndrome with mild to moderate disease Hypertension currently low/normal Lung nodule with plans for outpatient PET scan Per pt recent diagnosis of pulmonary fibrosis Hyperlipidemia History of prostate cancer Gastroesophagel reflux Former smoker GI prophylaxis DVT prophylaxis Full Code Plan Cardiac cath done on 02/17 showed Mild to moderate noncritical CAD with 50% RPDA disease and a 50% diagonal disease S/p transvenous temporary pacemaker on 02/18 patient to undergo temporary pacemaker implantation today Continue aspirin, Lipitor Continue Imdur, losartan has been placed on hold due to the hypotension Avoid AV kirt blocking agents Cardiology following and recommended aggressive risk factor modification and medical treatment Albuterol as needed for shortness of breath Keep Appointment with Dr. Nelson in the office on 02/27 to establish care. Repeat labs in the AM The impression and plan of care has been dictated by Melissa Car Nurse Practitioner as directed. Dr. Cheri MD I have performed a history and physical examination and medical decision making of this patient, discussed the same with the dictator, and agree with the dictators assessment and plan as written, documented as a scribe. Based on total visit time, I have performed more than 50% of this visit. Objective - Vital Signs Vital signs: Vital Signs Temp 97.9 F 02/21/24 12:00 Pulse 66 02/21/24 13:00 Resp 18 02/21/24 13:00 BP 99/66 02/21/24 13:00 Pulse Ox 98 02/21/24 13:00 FiO2 Intake & Output 02/20/24 02/21/24 02/21/24 18:59 06:59 18:59 Intake Total 440 240 370 Output Total 1125 900 525 Balance -685 -660 -155 Weight 110 kg Intake: IV 240 240 370 KVO 0.9 NS 240 240 370 Oral 200 Output: Urine 1125 900 525 Other: Voiding Method Urinal Urinal Urinal # Bowel Movements 1 1 - Labs CBC & Chem 7: 02/21/24 05:43 02/21/24 05:43 Labs: Abnormal Lab Results - Last 24 Hours (Table) 02/21/24 Range/Units 05:43 Chloride 108 H (98-107) mmol/L Carbon Dioxide 21 L (22-30) mmol/L Assessment and Plan Time with Patient: Less than 30
[2024-02-22 06:26] LABS: African American GFR (CKD) >90 (>60 ml/min/1.73 sqM); Anion Gap 6 mmol/L; Blood Urea Nitrogen 22 mg/dL (9-20); Calcium 8.7 mg/dL (8.4-10.2); Carbon Dioxide 21 mmol/L (22-30); Chloride 110 mmol/L (98-107); Glucose 87 mg/dL (74-99); Non-African American GFR(CKD) 87 (>60 ml/min/1.73 sqM); Potassium 4.2 mmol/L (3.5-5.1); Sodium 137 mmol/L (137-145)
[2024-02-22] MEDS ORDERED: fentaNYL (PF) 50 MCG/ML 2 ML AMP ONE (10:20)
[2024-02-22] MEDS: SODIUM CHLORIDE 0.9% 1,000 ML IV ONE (10:30)
[2024-02-22] MEDS: MIDAZOLAM 2 MG/2 ML VIAL IVP ONE (10:50)
[2024-02-22] MEDS: IOPAMIDOL-370 100ML BTL IVP ONE (10:50)
[2024-02-22] MEDS: LIDOCAINE 1% INJ 10MG/ML (20 ML MDV) SQ ONE (10:50)
[2024-02-22] MEDS: fentaNYL (PF) 50 MCG/1 ML VIAL IVP ONE (10:58)
[2024-02-22] MEDS: ceFAZolin 1,000 MG VIAL IVPB ONE (10:59)
[2024-02-22] MEDS: HYDROmorphone 0.5 MG/0.5 ML SYRINGE IVP ONE (11:37)
[2024-02-22] MEDS ORDERED: ACETAMINOPHEN TAB 325 MG TAB PO PRN (13:05)
--- NOTE | 2024-02-22 13:11 | P.PCN ---
Date of Procedure: 02/22/24 Description of Procedure: Date of Procedure: 02/16/24 Description of Procedure: Procedure(s): Dual Chamber Permanent Pacemaker Implantation; Cardiac Fluoroscopy Indications: Syncope with complete heart block Preprocedure Diagnosis: Syncope with complete heart block Postprocedure Diagnosis: Syncope with complete heart block This patient was admitted to the hospital with an episode of dizziness and lightheadedness. He had a cardiac cath earlier on his arrival because of mildly elevated troponin. He had an episode of complete heart block with syncope in the hospital and had a temporary pacemaker and was advised a permanent pacemaker. He has noncritical moderate CAD preserved LV systolic function. Risks benefits options rationale explained to the patient and they understood all details and wished to proceed with the procedure Procedure Details: The risks, benefits, complications, treatment options, and expected outcomes were discussed with the patient. The patient and her concurred with the proposed plan, giving informed consent. Patient was prepped and draped in the usual strict sterile fashion. After the antibiotic was completely infused, 20 mL of 1% lidocaine was infiltrated into the area just medial to the left deltopectoral groove. Using a micropuncture needle technique with fluoroscopic guidance two access points were obtained into the axillary vein. 2 wires were advanced under to access fluoroscopic guidance in In the right atrium. Using a #15 scalpel, an incision was made. The incision was extended to the pre-pectoral fascia using blunt dissection. Using cautery and dissection a pocket was made. A guidewire was advanced to the heart underfluoroscopic guidance. Sheath was advanced over the guidewire. A guidewire was retained, and dilator was removed. A pacemaker lead was advanced to the heart under fluoroscopic guidance. The sheath was peeled away. The lead was fixated to the right ventricular apical septum. Appropriate sensing and thresholds were obtained. No diaphragmatic pacing occurred at 10 V and 1.5 ms. As second sheath was advanced over the guidewire. The dilator and guidewire were removed. A pacemaker lead was advanced to the heart under fluoroscopic guidance. The sheath was peeled away. The lead was fixated to the right atrial appendage. Appropriate sensing and thresholds were obtained. No diaphragmatic pacing occurred at 10 V and 1.5 ms. Both were active leads and both the leads were screwed and and secured to the underlying muscle using 2 separate 0 silk sutures. Hemostasis was achieved. The measurements were then rechecked. A left pre-pectoral pocket was fashioned.The pocket was irrigated with antibiotic and I left an antibiotic sponge in the pocket for 30 minutes. The leads were attached to the generator. The system was placed in the pocket. The pacemaker and lead system were visualized under fluoroscopy. Appropriate redundancy/slack in the leads were noted. The pins of the leads were beyond the set screws. The pulse generator was also secured to the underlying muscle using a 0 silk suture. Moderate conscious sedation time was 133 minutes. Patient was administered Versed and fentanyl oxygen saturation hemodynamic and EKG were monitored closely. Hemostasis was reverified. The pocket was then closed with 2.0 and 3.0 Vicryl. Steri-Strips, a gauze dressing, and operative site were placed. Pacemaker [employer] : Medtronic model W1 DR 01 serial number [id number] Atrial lead rn review: Medtronic model 4076-52 serial number [id number] placed in the right atrial appendage Right ventricular lead rn review: Medtronic model 4076-58 serial number [id number] placed in the RV apical septum The pacemaker was set at a lower rate of 55 high rate of 120 BPM the remote was DDD AV paced delay was 180 ms. AV sensed delay was 150 ms. Pacemaker parameters: P waves were 2.0 mV. Impedance was 570 ohms. Threshold was 0.5 V at 0.4 ms. The R waves were 15.5 mV. Impedance was 779 ohms. Threshold was 0.75 at 0.4 ms Estimated Blood Loss: Less than 50 ml. Complications: None; patient tolerated the procedure well. Disposition: 3 S to telemetry unit.- hemodynamically stable. Condition: Stable. No complications. Discussed with patient and her , patient will be discharged in 24 hours after device check and chest x-ray. Moderate conscious sedation time was 133 minutes. Patient was administered Versed, fentanyl . Oxygen saturation hemodynamics and EKG were monitored closely
[2024-02-22 14:16] VITALS: BMI 34.8
--- NOTE | 2024-02-22 15:08 | XR ---
EXAMINATION TYPE: XR chest 1V portable DATE OF EXAM: 02/22/2024 2:34 PM CLINICAL INDICATION:Male, 74 years old with history of Lead placement check; [facility] COMPARISON: Chest radiographs from 02/17/2024. TECHNIQUE: XR chest 1V portable Frontal view of the chest. FINDINGS: Lungs/Pleura: There is no evidence of pleural effusion, focal consolidation, or pneumothorax. Pulmonary vascularity: Unremarkable. Heart/mediastinum: Cardiomediastinal silhouette is unremarkable. Two lead cardiac conduction device o verlying the left hemithorax with lead tips projecting over the right ventricle and right atrium, new since the prior exam. Musculoskeletal: No acute osseous pathology. Other findings: None Lines/Tubes: IMPRESSION: No radiographic evidence of acute cardiopulmonary disease/process.
--- NOTE | 2024-02-22 15:47 | P.PN ---
Subjective Progress Note Date: 02/22/24 patient is a 74-year-old gentleman with past medical history significant for hypertension, hyperlipidemia who presented to the hospital for chest pain. Patient was worked up in the hospital a week ago with similar complaint at that time patient had stress test done which was negative and patient was cleared for discharge by cardiology. Patient stated that ever since discharge has been noticing that he gets short of breath on exertion. Patient also complaining of chest pain brought about by exertion, chest pain is pressure-like, central in location, nonradiating, aggravated by exertion, and relieved by rest. Patient stated that he even passed out because of chest pressure on walking up a flight of stairs. Denies any orthopnea or PND. There is no complaint of swelling of feet. Because of the symptoms, patient brought to the ER Initial lab work done in the ER showed WBC 12.1, hemoglobin 17.8, platelet count 315, sodium 138, potassium 4.1, BUN 20, creatinine 0.98, troponin 0.012, repeat was 0.057 EKG done in the ER showed heart rate of 90, no ST segment elevation or depression seen, no T-wave inversions seen. Chest x-ray done in the ER no acute pulmonary process Patient admitted to internal medicine service 02/18. Patient seen and examined. 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 beta blockers were discontinued 02/19. Patient seen and examined. Patient had to be transferred to ICU over night as patient was very bradycardic, cardiology placed a transvenous temporary pacemaker. Currently being monitored in the ICU. Plan is for patient to have a permanent pacemaker 02/21/2024 Patient evaluated today, remains in the ICU with temporary transvenous pacemaker in place. Continues to report dizziness. Patient additionally states he was diagnosed recently with pulmonary fibrosis and scarring in the left leg. Having intermittent episodes of shortness of breath mostly at bedtime. States he feel this is also related to the statin and tylenol. He has tried albuterol inhaler in the past given to him by his PCP states it did not help. He is currently on room air with oxygen saturations in the high 90s. He will undergo permanent pacemaker placement later today. 02/22/2024 Patient remains in the intensive care unit. Postoperative day #1 dual chamber permanent pacemaker implantation. Chest xray reveals no acute cardiopulmonary disease and pacemaker in appropriate position. Renal function WNL. Remains on room air. Hemodynamically stable. Review of Systems Constitutional: Denied any fatigue denied any fever. Cardio vascular: denied any chest pain, palpitations Gastrointestinal: denied any nausea, vomiting, diarrhea Pulmonary: Denied any shortness of breath cough Neurologic denied any new focal deficits Reports dizziness All inpatient medications were reviewed and appropriate changes in these medications as dictated in the interval history and assessment and plan. PHYSICAL EXAMINATION: GENERAL: The patient is alert and oriented x3, not in any acute distress. Well developed, well nourished. HEENT: Pupils are round and equally reacting to light. EOMI. No scleral icterus. No conjunctival pallor. Normocephalic, atraumatic. No pharyngeal erythema. No thyromegaly. CARDIOVASCULAR: S1 and S2 present. No murmurs, rubs, or gallops. Pacemaker site intact. PULMONARY: Chest is clear to auscultation, no wheezing or crackles. ABDOMEN: Soft, nontender, nondistended, normoactive bowel sounds. No palpable organomegaly. MUSCULOSKELETAL: No joint swelling or deformity. EXTREMITIES: No cyanosis, clubbing, or pedal edema. NEUROLOGICAL: Gross neurological examination did not reveal any focal deficits. SKIN: No rashes. Assessment and plan Bradycardia with high AV block status post permanent pacemaker Acute coronary syndrome with mild to moderate disease Hypertension currently low/normal Lung nodule with plans for outpatient PET scan Per pt recent diagnosis of pulmonary fibrosis Hyperlipidemia History of prostate cancer Gastroesophagel reflux Former smoker GI prophylaxis DVT prophylaxis Full Code Plan Cardiac cath done on 02/17 showed Mild to moderate noncritical CAD with 50% RPDA disease and a 50% diagonal disease s/p permanent pacemaker Continue aspirin, Lipitor Continue Imdur, losartan has been placed on hold due to the hypotension Started on low dose beta brent Cardiology following and recommended aggressive risk factor modification and me dical treatment Albuterol as needed for shortness of breath Keep Appointment with Dr. Nelson in the office on 02/27 to establish care. The impression and plan of care has been dictated by Melissa Car Nurse Practitioner as directed. Dr. Cheri MD I have performed a history and physical examination and medical decision making of this patient, discussed the same with the dictator, and agree with the dictators assessment and plan as written, documented as a scribe. Based on total visit time, I have performed more than 50% of this visit. Objective - Vital Signs Vital signs: Vital Signs Temp 97.8 F 02/22/24 08:00 Pulse 62 02/22/24 10:00 Resp 8 L 02/22/24 09:00 BP 112/68 02/22/24 10:00 Pulse Ox 97 02/22/24 09:00 FiO2 Intake & Output 02/21/24 02/22/24 02/22/24 18:59 06:59 18:59 Intake Total 620 550 150 Output Total 625 500 250 Balance -5 50 -100 Weight 107 kg Intake: IV 620 550 150 KVO 0.9 NS 620 550 150 Output: Urine 625 500 250 Other: Voiding Method Urinal Urinal Urinal # Voids 1 1 # Bowel Movements 1 - Labs CBC & Chem 7: 02/21/24 05:43 02/22/24 05:31 Labs: Abnormal Lab Results - Last 24 Hours (Table) 02/22/24 Range/Units 05:31 Chloride 110 H (98-107) mmol/L Carbon Dioxide 21 L (22-30) mmol/L BUN 22 H (9-20) mg/dL Assessment and Plan Time with Patient: Less than 30
--- NOTE | 2024-02-22 15:48 | P.PN ---
Subjective Progress Note Date: 02/22/24 HPI: HPI: This patient was admitted to the hospital with an episode of dizziness and lightheadedness. He also had a near syncopal spell and then developed a complete heart block in the hospital requiring a temporary pacemaker. This morning he was brought in for a permanent pacemaker that was performed un eventfully. Patient is doing well hemodynamically stable no chest pain or shortness of breath complains of being fatigued lying in the bed with his femoral venous sheath for a temporary pacer. He was using the pacer about 20% of the time. Dual-chamber permanent pacemaker was performed uneventfully site is clean and dry. Patient was sent to the room in a stable condition details were discussed with patient and his . Hopefully he will be discharged tomorrow after a device check and chest x-ray.. PHYSICIAL EXAM: Vital signs are stable no JVD S1-S2 heard normally short systolic murmur audible at left sternal border lungs are clear abdomen is soft lower extremities reveal diminished pulses, no edema. Central nervous system is normal. IMPRESSION: 1. Noncritical CAD. 2. Possible pulmonary fibrosis. 3. Sick sinus syndrome with complete heart block requiring temporary pacer. 4. Status post dual-chamber permanent pacemaker. 5.. RECOMMENDATIONS: Dual-chamber permanent pacemaker is in place. Will resume all his medications plus a small dose of beta-brent. Device check tomorrow and a chest x-ray check tomorrow possible discharge in a.m. Discussed my thoughts with the patient and .. Objective - Vital Signs Vital signs: Vital Signs Temp 97.8 F 02/22/24 08:00 Pulse 72 02/22/24 14:00 Resp 20 02/22/24 14:00 BP 107/71 02/22/24 14:00 Pulse Ox 96 02/22/24 14:00 FiO2 Intake & Output 02/21/24 02/22/24 02/22/24 18:59 06:59 18:59 Intake Total 620 550 450 Output Total 625 500 250 Balance -5 50 200 Weight 107 kg 107 kg Intake: IV 620 550 450 KVO 0.9 NS 620 550 150 Output: Urine 625 500 250 Other: Voiding Method Urinal Urinal Urinal # Voids 1 1 # Bowel Movements 1 - Labs CBC & Chem 7: 02/21/24 05:43 02/22/24 05:31 Labs: Abnormal Lab Results - Last 24 Hours (Table) 02/22/24 Range/Units 05:31 Chloride 110 H (98-107) mmol/L Carbon Dioxide 21 L (22-30) mmol/L BUN 22 H (9-20) mg/dL
[2024-02-22] MEDS: METOPROLOL TARTRATE 12.5 MG TAB PO SCH (21:51)
[2024-02-23 04:02] VITALS: TEMP 97.9
--- NOTE | 2024-02-23 08:35 | XR ---
EXAMINATION TYPE: XR chest 2V DATE OF EXAM: 02/23/2024 COMPARISON: 02/22/2024 HISTORY: Shortness of breath TECHNIQUE: Frontal and lateral views of the chest are obtained. FINDINGS: Scattered senescent parenchymal changes noted. Hyperinflation compatible with COPD. No evidence for infiltrate. No evidence for atelectasis. Dual-lead pacer device with distal leads wit hin the right atrium and right ventricle respectively. No pneumothorax seen. Heart size is stable. Mediastinal structures are stable and grossly unremarkable. No evidence for hilar prominence. Degenerative changes dorsal spine. IMPRESSION: 1. No evidence for acute pulmonary disease.
[2024-02-23 08:52] VITALS: BP 143/79; PULSE 77; RESP 16
--- NOTE | 2024-02-23 11:27 | P.PN ---
Subjective HISTORY OF PRESENT ILLNESS: This is a 74-year-old male with a past medical history significant for hypertension and hyperlipidemia. Patient does not follow with a pumping supervisor. We have been asked to see the patient in consultation for non-STEMI. Patient examined at the bedside in the emergency room. Patient was admitted to the hospital last week secondary to chest pain. Acute coronary syndrome was ruled out. He underwent Lexiscan stress test which was negative for ischemia. He was discharged home in stable condition. Patient presented back to the hospital with a chief complaint of chest pain. Patient was found to have elevated trop onins and was started on IV heparin. He also reports that he had an episode of dizziness/lightheadedness at home and had a syncopal episode. Remote telemetry reveals sinus mechanism with episodes of atrial tachycardia. DIAGNOSTICS: - EKG reveals sinus mechanism with nonspecific ST-T wave changes - Chest xray negative for acute process - Laboratory data: WBC 13.4. Hemoglobin 17.4. Platelet count 261. Sodium 138. Potassium 4.1. BUN 29. Creatinine 0.98. Troponin 0.012. 0.057. 0.078. 0.1 21. - Current home cardiac medications include aspirin 81 mg, losartan 50 mg at night, metoprolol succinate 25 mg daily, amlodipine 5 mg daily, and simvastatin 20 mg at night. - Most recent echocardiogram obtained on February 08, 2024 revealed ejection fraction 50 to 55%, trace MR, mild LVH February 19, 2024 The patient was seen and evaluated this morning. Currently he is not having any chest pain or shortness of breath. It was noted that he has been experiencing intermittent episodes of bradycardia concerning for AV block. An EKG is in process to be done. He is on metoprolol which we are going to hold at this point. The echo is still pending. D-dimer is abnormal and CT scan is in process to be done to rule out pulmonary embolism. Beside that he is stable. His heart rate is in the upper 40s and lower 50s. Examination reveals regular rhythm with clear breathing sounds bilaterally and no edema was noted February 20, 2024 The patient was seen and evaluated this morning. He underwent temporary pacemaker placement from right femoral vein approach yesterday. He has been using the pacer intermittently. He need to undergo permanent pacemaker in the next 24 hour. Clinically he seems to be stable otherwise and no symptoms of any chest pain or chest discomfort or shortness of breath or any dizziness or lightheadedness. Currently he is not on any AV kirt brent agents. The echo revealed normal LV systolic function with mild to moderate aortic insufficiency. 02/20 Patient denies any chest pain or pressure. He does have some continued palpiations. He admits he slept better last night when TVP was set at 60 rather than 50 however when he is paced often can sometimes feel palpitations. 02/23/2024 Patient is status post dual-chamber pacemaker implantation with Dr. Hager. Postop day #1. Patient examined this morning the bedside. Patient denies chest pain or pressure. He denies shortness of breath. Chest x-ray was obtained with appropriate lead placement and no pneumothorax noted. Device was interrogated this morning and is functioning appropriately. Vital signs are stable. PHYSICAL EXAM: VITAL SIGNS: Reviewed. GENERAL: Well-developed in no acute distress. HEENT: Head is normocephalic. Pupils are equal, round. Sclerae anicteric. Mucous membranes of the mouth are moist. Neck supple. No JVD or thyromegaly LUNGS: Respirations even and unlabored. Lungs essentially clear to auscultation bilaterally. HEART: Regular rate and rhythm. S1 and S2 heard. ABDOMEN: Soft. Nondistended. Nontender. EXTREMITIES: Normal range of motion. No clubbing or cyanosis. Peripheral pulses intact. No lower extremity edema NEUROLOGIC: Awake and alert. Oriented x 3. ASSESSMENT: Chest pain Non-STEMI, status postcardiac catheterization revealing noncritical moderate CAD Paroxysmal atrial tachycardia Syncope with complete heart block, status post dual-chamber pacemaker implantation Hypertension Hyperlipidemia Former nicotine dependence Lung nodule, supposed to have PET scan outpatient PLAN: Continue current cardiac medications Patient is stable for discharge home today from a cardiac standpoint He is to follow-up postdischarge with Dr. Hager Nurse practitioner note has been reviewed by physician. Signing provider agrees with the documented findings, assessment, and plan of care documented by FISH HATCHERY ASSISTANT as a scribe. Objective - Vital Signs Vital signs: Vital Signs Temp 97.9 F 02/23/24 08:00 Pulse 77 02/23/24 08:00 Resp 16 02/23/24 08:00 BP 143/79 02/23/24 08:00 Pulse Ox 98 02/23/24 08:00 FiO2 Intake & Output 02/22/24 02/23/24 02/23/24 18:59 06:59 18:59 Intake Total 450 240 Output Total 250 Balance 200 240 Weight 107 kg Intake: IV 450 KVO 0.9 NS 150 Oral 240 Output: Urine 250 Other: Voiding Method Urinal # Voids 1 5 # Bowel Movements 7 - Labs CBC & Chem 7: 02/21/24 05:43 02/22/24 05:31
--- NOTE | 2024-02-24 15:31 | P.DS ---
Providers Date of admission: 02/17/24 12:23 Attending physician: Luis Quevedo Consults: 02/17/24 12:22 Consult Physician Urgent Consulting Provider: [facility] Consult Reason/Comments: Chest pain, exertional dyspnea, syncope Do you want consulting provider notified?: Yes 02/18/24 10:59 Consult Physician Routine Consulting Provider: Abdi Newton Consult Reason/Comments: Mass in chest Do you want consulting provider notified?: Yes Primary care physician: Madison Kent Hospital Course: Final Diagnosis Bradycardia with high AV block status post permanent pacemaker Acute coronary syndrome with mild to moderate disease Hypertension currently low/normal Lung nodule with plans for outpatient PET scan Per pt recent diagnosis of pulmonary fibrosis Hyperlipidemia History of prostate cancer Gastroesophagel reflux Former smoker Full Code Discharge Disposition Patient is stable medically for discharge. Cardiac medications have been adjusted including the discontinuation of Norvasc and decrease of metoprolol to 12.5 mg twice a day. Patient has been started on Imdur. Continue on aspirin 81 mg daily. Patient to follow-up with Dr. VANE Hager on March 01. Recommended to reschedule his appoint with Dr. Nelson to establish care with a tank car loader with concerns for interstitial lung disease and pulmonary fibrosis. Patient does have concerns with continuing on Lipitor as he feels that this is causing him significant shortness of breath when taken in the evening. Advised to discuss with this with PCP. Repeat BMP in 2 to 3 days. Hospital Course Patient is a 74-year-old gentleman with past medical history significant for hypertension, hyperlipidemia who presented to the hospital for chest pain. Patient was worked up in the hospital a week ago with similar complaint at that time patient had stress test done which was negative and patient was cleared for discharge by cardiology. Patient stated that ever since discharge has been noticing that he gets short of breath on exertion. Patient also complaining of chest pain brought about by exertion, chest pain is pressure-like, central in location, nonradiating, aggravated by exertion, and relieved by rest. Patient stated that he even passed out because of chest pressure on walking up a flight of stairs. Denies any orthopnea or PND. There is no complaint of swelling of feet. Because of the symptoms, patient brought to the ER. Initial lab work done in the ER showed WBC 12.1, hemoglobin 17.8, platelet count 315, sodium 138, potassium 4.1, BUN 20, creatinine 0.98, troponin 0.012, repeat was 0.057 EKG done in the ER showed heart rate of 90, no ST segment elevation or depression seen, no T-wave inversions seen. Chest x-ray done in the ER no acute pulmonary process. Patient admitted to internal medicine service with consult to cardiology. He was recommended to undergo catheterization which was done on 02/17, showed Mild to moderate noncritical CAD with 50% RPDA disease and a 50% diagonal disease, cardiology recommended aggressive risk factor modification and medical treatment. beta blockers were discontinued. Patient was transferred to ICU due to bradycardia and had transvenous temporary pacemaker placed. He then underwent dual chamber permanent pacemaker implantation. Chest xray reveals no acute cardiopulmonary disease and pacemaker in appropriate position. Renal function WNL. Remains on room air. Hemodynamically stable. He had pace interrogated with no issues found. He was cleared for discharge. Please see medication reconciliation for a list of current medications. Thank you for allowing us to participate in the care of this patient. The impression and plan of care has been dictated by Melissa Car, Nurse Practitioner as directed. Dr. Cheri MD I have performed a history and physical examination and medical decision making of this patient, discussed the same with the dictator, and agree with the dictators assessment and plan as written, documented as a scribe. Based on total visit time, I have performed more than 50% of this visit. Patient Condition at Discharge: Fair Plan - Discharge Summary New Discharge Prescriptions: New Aspirin 81 mg PO DAILY #30 tab Atorvastatin [Lipitor] 80 mg PO HS #30 tab Metoprolol Tartrate [Lopressor] 12.5 mg PO BID #60 tab Nitroglycerin Sl Tabs [Nitrostat] 0.4 mg SUBLINGUAL Q5M PRN #25 tab PRN Reason: Chest Pain Isosorbide Mononitrate ER [Imdur] 30 mg PO DAILY #30 tab Continue Omeprazole [PriLOSEC] 20 mg PO HS Cetirizine HCl [Zyrtec] 10 mg PO DAILY Aspirin 81 mg PO DAILY #30 tab Losartan [Cozaar] 50 mg PO HS #60 tab Discontinued Simvastatin 20 mg PO HS #30 tablet amLODIPine [Norvasc] 5 mg PO DAILY #30 tab Metoprolol Succinate [Metoprolol Succinate ER] 25 mg PO DAILY #30 tab Discharge Medication List Cetirizine HCl [Zyrtec] 10 mg PO DAILY 02/08/24 [History] Omeprazole [PriLOSEC] 20 mg PO HS 02/08/24 [History] Aspirin 81 mg PO DAILY #30 tab 02/10/24 [Rx] Losartan [Cozaar] 50 mg PO HS #60 tab 02/10/24 [Rx] Aspirin 81 mg PO DAILY #30 tab 02/23/24 [Rx] Atorvastatin [Lipitor] 80 mg PO HS #30 tab 02/23/24 [Rx] Isosorbide Mononitrate ER [Imdur] 30 mg PO DAILY #30 tab 02/23/24 [Rx] Metoprolol Tartrate [Lopressor] 12.5 mg PO BID #60 tab 02/23/24 [Rx] Nitroglycerin Sl Tabs [Nitrostat] 0.4 mg SUBLINGUAL Q5M PRN #25 tab 02/23/24 [Rx] Follow up Appointment(s)/Referral(s): Livier Hager MD [STAFF PHYSICIAN] - 03/01/24 9:30 am Madison Esquivel NPC [Primary Care Provider] - 1-2 days Rex Newton MD [STAFF PHYSICIAN] - 03/07/24 9:30 am Ambulatory/Diagnostic Orders: Basic Metabolic Panel [LAB.AMB] Time Frame: 3 Days, Location: None Selected Patient Instructions/Handouts: Pacemaker (DC) Activity/Diet/Wound Care/Special Instructions: Rescheduled your appointment with Dr. Garvey Repeat labs in 2 to 3 days Discharge Disposition: HOME SELF-CARE
== END 2024-02-23 11:07 | disposition home or self-care (01) | DRG 243 ==
LOC: EC 09:33 → 6NMEDSUR 12:22 → OBSVTOIN 12:23 → 3SCARD 15:02 → 2SICU 02-19 18:57 → 6NMEDSUR 02-22 16:53
PROVIDERS: ADMIT Hospitalist; ATTEND Hospitalist
PROC: 4A023N7 Measurement of Cardiac Sampling and Pressure, Left Heart, Percutaneous Approach (ICD-10-PCS; 2024-02-18)
PROC: B2111ZZ Fluoroscopy of Multiple Coronary Arteries using Low Osmolar Contrast (ICD-10-PCS; 2024-02-18)
PROC: 5A1223Z Performance of Cardiac Pacing, Continuous (ICD-10-PCS; 2024-02-19)
PROC: 0JH606Z Insertion of Pacemaker, Dual Chamber into Chest Subcutaneous Tissue and Fascia, Open Approach (ICD-10-PCS; principal; 2024-02-22 09:00)
PROC: 02HK3JZ Insertion of Pacemaker Lead into Right Ventricle, Percutaneous Approach (ICD-10-PCS; principal; 2024-02-22 09:00)
PROC: 02H63JZ Insertion of Pacemaker Lead into Right Atrium, Percutaneous Approach (ICD-10-PCS; principal; 2024-02-22 09:00)
DX: I21.3 ST elevation (STEMI) myocardial infarction of unspecified site (principal); I44.2 Atrioventricular block, complete; I47.19 Other supraventricular tachycardia; I49.5 Sick sinus syndrome; J84.10 Pulmonary fibrosis, unspecified; J44.9 Chronic obstructive pulmonary disease, unspecified; I10 Essential (primary) hypertension; I35.1 Nonrheumatic aortic (valve) insufficiency; Z28.310 Unvaccinated for COVID-19; I25.10 Atherosclerotic heart disease of native coronary artery without angina pectoris; I25.84 Coronary atherosclerosis due to calcified coronary lesion; E78.5 Hyperlipidemia, unspecified; R91.1 Solitary pulmonary nodule; R59.0 Localized enlarged lymph nodes; K21.9 Gastro-esophageal reflux disease without esophagitis; Z77.090 Contact with and (suspected) exposure to asbestos; Z79.82 Long term (current) use of aspirin; Z79.899 Other long term (current) drug therapy; Z85.46 Personal history of malignant neoplasm of prostate; Z87.891 Personal history of nicotine dependence; Z88.0 Allergy status to penicillin; Z88.2 Allergy status to sulfonamides; Z88.8 Allergy status to other drugs, medicaments and biological substances
CPT/HCPCS: 33208; 33210; 36415; 71045; 71046; 71275; 80048; 80053; 80061; 83735; 83880; 84484; 85025; 85379; 85610; 85730; 93005; 93308; 93458; 99285

== ENCOUNTER → 2024-04-01 | Outpatient (CLI) | payer MEDICARE ==
--- NOTE | 2024-04-03 17:02 | PE ---
EXAMINATION TYPE: PET CT fusion skull to thigh DATE OF EXAM: 04/01/2024 COMPARISON: CTA chest 02/19/2024 Prior PET/CT: No prior PET/CT available at this location HISTORY: Prostate cancer, solitary pulmonary nodule TECHNIQUE: Following the intravenous administration of 13.15 mCi of F-18 FDG, whole body images are performed from the skull base to the midthigh. Images are reviewed on the computer in the coronal, a xial, and sagittal planes. Reconstructed rotating images are created on independent workstation and reviewed on the computer. A localization and attenuation correction CT is performed in conjunction with the PET scan. DLP: 7-4.34 mGycm SCAN: Subsequent Blood glucose: 102 mg/dL Average Mediastinum SUV: 2.37 Average Liver SUV: 2.9 FINDINGS: NECK: No abnormal uptake. No suspicious uptake or uptake within the salivary glands is evident. THORAX: Focal uptake within the periaortic region, image 88, SUV 8.45. Additional uptake is present a nterior to the aorta at the aortopulmonic window level may be of peribronchial lymph node with an SUV of 7.27, image 91. Additional small peribronchial lymph nodes are present on the right with SUV leve ls of 4.51 and 4.6, image 91. There is marked uptake within the subcarinal lymph node with an SUV of 9.95. A paraesophageal lymph node is present image 97, SUV 9.2. Right infrahilar lymph node is presen t with an SUV of 6.76, image 98. ABDOMEN: No abnormal uptake PELVIS: There is a focus of radiotracer which may be the inferior left prostate, image 247. Perirecta l lymph node could also be considered. OSSEOUS STRUCTURES: No abnormal uptake LOCALIZATION CT: Moderate pericardial effusion is evident, this mass some mild increased uptake, cristina gnant effusion should be considered. Small bilateral pleural effusions are present. COMPARISON: Pericardial effusion is developing from comparison. Small pleural effusions have increase d. IMPRESSION: 1. Multiple foci of uptake within mediastinal and hilar lymph nodes suspicious for metastatic disease . 2. Small focus of radiotracer inferior left prostate or perirectal region
== END | disposition home or self-care (01) ==
LOC: RADPETMAIN 09:25
PROVIDERS: ATTEND Internal Medicine
DX: C61 Malignant neoplasm of prostate (principal); R91.1 Solitary pulmonary nodule
CPT/HCPCS: 78815; A9552

== ENCOUNTER → 2024-04-20 | Outpatient (CLI) | payer MEDICARE ==
--- NOTE | 2024-04-21 10:04 | CA ---
Transthoracic Echo Report Name: August Newberry Age: 74 Gender: M : 1950 Exam Date: 04/20/2024 11:33 Exam Location: [facility] Ht (in): 69 Wt (lb): 182 Ordering Physician: Casie Dolan MD Attending/Referring Phys: Madison Esquivel [facility], [facility] [employer] Teacher Leidy Coyle, JUDITH Procedure CPT: Indications: I31.39 PERICARDIAL EFFUSION Cardiac Hx: pacemaker Technical Quality: Fair Contrast 1: Total Dose (mL): Contrast 2: Total Dose (mL): MEASUREMENTS (Male / Female) Normal Values 2D ECHO LV Diastolic Diameter PLAX 4.5 cm 4.2 - 5.9 / 3.9 - 5.3 cm LV Systolic Diameter PLAX 3.0 cm IVS Diastolic Thickness 1.3 cm 0.6 - 1.0 / 0.6 - 0.9 cm LVPW Diastolic Thickness 1.2 cm 0.6 - 1.0 / 0.6 - 0.9 cm LV Relative Wall Thickness 0.5 RV Internal Dim ED PLAX 3.1 cm LA Systolic Diameter LX 3.6 cm 3.0 - 4.0 / 2.7 - 3.8 cm LV Diastolic Volume MOD 4C 86.4 cm??? LV Systolic Volume MOD 4C 43.5 cm??? LV Ejection Fraction MOD 4C 49.7 % LV Cardiac Index MOD 4C 1468.2 cm???/min???m??? LV Diastolic Length 4C 8.3 cm LV Systolic Length 4C 7.6 cm M-MODE Aortic Root Diameter MM 3.6 cm LA Systolic Diameter MM 2.0 cm LA Ao Ratio MM 0.5 DOPPLER AV Peak Velocity 139.3 cm/s AV Peak Gradient 7.8 mmHg AI Peak Velocity 313.2 cm/s AI Peak Gradient 39.2 mmHg AI Pressure Half Time 560.4 ms MV Area PHT 5.9 cm??? MV E' Velocity 6.8 cm/s FINDINGS Left Ventricle Left ventricular ejection fraction is estimated at 50-55 %. Left ventricular cavity size normal. Mildly increased septal wall thickness. No obvious regional wall motion abnormalities. Right Ventricle Normal right ventricular size and function. Unable to estimate the right ventricular systolic pressure. Right Atrium Normal right atrial size. No right atrial thrombus or mass seen. Left Atrium Normal left atrial size. No left atrial thrombus or mass present. Mitral Valve Mitral valve thickened. Mitral annular calcification. Mild mitral regurgitation. Aortic Valve Trileaflet aortic valve. Aortic valve sclerosis. No aortic valve stenosis. Mild aortic regurgitation. Tricuspid Valve Structurally normal tricuspid valve. No tricuspid regurgitation. Pulmonic Valve Structurally normal pulmonic valve. No pulmonic regurgitation. Pericardium Small pericardial effusion. Aorta Normal size aortic root and proximal ascending aorta. CONCLUSIONS Normal LV systolic function Mild aortic and mitral regurgitation Previewed by: Dr. Edilberto Gore MD (Electronically Signed) Final Date: 21 April 2024 10:04
== END | disposition home or self-care (01) ==
LOC: RADECHMAIN 11:22
PROVIDERS: ATTEND Internal Medicine
DX: I31.39 Other pericardial effusion (noninflammatory) (principal); I08.0 Rheumatic disorders of both mitral and aortic valves
CPT/HCPCS: 93306

== ENCOUNTER 2024-05-16 15:48 | Observation (INO) | payer MEDICARE ==
--- NOTE | 2024-05-16 16:25 | ED ---
Chest Pain HPI - General Source: patient Mode of arrival: ambulatory Limitations: no limitations <Darell Miller - Last Filed: 05/16/24 16:24> - General Source: patient, RN notes reviewed Mode of arrival: ambulatory Limitations: no limitations <Olaf Cordova - Last Filed: 05/16/24 20:13> - General Chief Complaint: Chest Pain Stated Complaint: Chest pain w/pacemaker Time Seen by Provider: 05/16/24 16:24 - History of Present Illness Initial Comments: 74-year-old male presenting with chief complaint of chest pain. He has been having worsening intermittent stabbing pain. He has history of pacemaker placed back in January, shortly after surgery he was diagnosed with PE. States that he had an echocardiogram performed 3 weeks ago. He does gets shortness of breath with his pain at times. (Darell Miller) Patient is a 74-year-old male presents the emergency department with concerns with chest discomfort. Symptoms have been occurring the past 4 to 5 days. Discomfort feels like an ache. Patient has mild associated dyspnea and palpitations. Patient does have exertional dyspnea, especially with climbing stairs. Patient also has orthopnea. No calf pain or leg swelling. Patient does have recent pacemaker placement. (Olaf Cordova) - Related Data Home Medications Medication Instructions Recorded Confirmed Cetirizine HCl [Zyrtec] 10 mg PO DAILY 02/08/24 02/17/24 Omeprazole [PriLOSEC] 20 mg PO HS 02/08/24 02/17/24 Previous Rx's Medication Instructions Recorded Losartan [Cozaar] 50 mg PO HS #60 tab 02/10/24 Aspirin 81 mg PO DAILY #30 tab 02/23/24 Atorvastatin [Lipitor] 80 mg PO HS #30 tab 02/23/24 Isosorbide Mononitrate ER [Imdur] 30 mg PO DAILY #30 tab 02/23/24 Metoprolol Tartrate [Lopressor] 12.5 mg PO BID #60 tab 02/23/24 Nitroglycerin Sl Tabs [Nitrostat] 0.4 mg SUBLINGUAL Q5M PRN #25 tab 02/23/24 Allergies Allergy/AdvReac Type Severity Reaction Status Date / Time Penicillins Allergy Rash/Hives Verified 05/16/24 15:56 Sulfa (Sulfonamide Allergy Rash/Hives Verified 05/16/24 15:56 Antibiotics) steroid injection (unknown) AdvReac Dizziness Uncoded 02/17/24 10:37 Review of Systems ROS Other: All systems not noted in ROS Statement are negative. <Darell Miller - Last Filed: 05/16/24 16:24> ROS Other: All systems not noted in ROS Statement are negative. Constitutional: Denies: fever Eyes: Denies: eye pain Respiratory: Reports: as per HPI, dyspnea Cardiovascular: Reports: as per HPI, chest pain Musculoskeletal: Denies: back pain <Olaf Cordova - Last Filed: 05/16/24 20:13> ROS Statement: Those systems with pertinent positive or pertinent negative responses have been documented in the HPI. EKG Findings - EKG Results: EKG: interpreted by ERMD (Atrial rhythm with first-degree AV block HI 313. Left axis. Septal Q waves. No acute ST change. Inferior Q waves.) <Olaf Cordova - Last Filed: 05/16/24 20:13> Past Medical History Past Medical History: Cancer, COPD, GERD/Reflux, Hyperlipidemia, Hypertension Additional Past Medical History / Comment(s): prostate History of Any Multi-Drug Resistant Organisms: None Reported Past Surgical History: Cholecystectomy, Orthopedic Surgery Additional Past Surgical History / Comment(s): excision of bunion, cryoablate prostate, colonoscopy Past Psychological History: No Psychological Hx Reported Smoking Status: Former smoker Past Alcohol Use History: None Reported Past Drug Use History: None Reported <Darell Miller - Last Filed: 05/16/24 16:24> General Exam Limitations: no limitations <Darell Miller - Last Filed: 05/16/24 16:24> - General Exam Comments Initial Comments: Visual Physical Exam Vital signs reviewed General: Well-appearing, nontoxic, no acute distress. Head: Normocephalic, atraumatic Eyes: PERRLA, EOMI ENT: Airway patent Chest: Nonlabored breathing Skin: No visual rash, normal skin tone Neuro: Alert and oriented 3 Musculoskeletal: No gross abnormalities (Darell Miller) Course Vital Signs 05/16/24 15:54 Temperature 98.0 F Pulse Rate 105 H Respiratory 18 Rate Blood Pressure 126/84 O2 Sat by Pulse 97 Oximetry Chest Pain MDM <Darell Miller - Last Filed: 05/16/24 16:24> <Olaf Cordova - Last Filed: 05/16/24 20:13> - MDM I performed the quick note portion of this visit, electronically signed Darell Miller PA-C (Darell Miller) Was pt. sent in by a medical professional or institution (, [facility], COMMUNICATIONS TECH, urgent care, hospital, or longterm...) When possible be specific @ -No Did you speak to anyone other than the patient for history (EMS, parent, family, police, friend...)? What history was obtained from this source @ -Family is present and helps provide additional history including when pacemaker was placed. Did you review nursing and triage notes (agree or disagree)? Why? @ -I reviewed and agree with nursing and triage notes Were old charts reviewed (outside hosp., previous admission, EMS record, old EKG, old radiological studies, urgent care reports/EKG's, longterm records)? Report findings @ -Previous chest x-ray also reviewed with findings similar to today Differential Diagnosis (chest pain, altered mental status, abdominal pain women, abdominal pain men, vaginal bleeding, weakness, fever, dyspnea, syncope, headache, dizziness, GI bleed, back pain, seizure, CVA, palpatations, mental health, musculoskeletal)? @ -Differential Chest Pain: Stable Angina, Unstable Angina, STEMI, NSTEMI Aortic Dissection, Pneumothorax, Musculoskeletal, Esophageal Spasm GERD, Cholecystitis, Pancreatitis, Zoster, this is not meant to be an all-inclusive list. EKG interpreted by me (3pts min.). @ -As above X-rays interpreted by me (1pt min.). @ -Chest x-ray shows no acute process CT interpreted by me (1pt min.). @ -None done U/S interpreted by me (1pt. min.). @ -None done What testing was considered but not performed or refused? (CT, X-rays, U/S, labs)? Why? @ -D-dimer was added What meds were considered but not given or refused? Why? @ -None Did you discuss the management of the patient with other professionals (professionals i.e. [facility]oss, COMMUNICATIONS TECH, lab, RT, psych nurse, social studies department chair, plastic printer, teacher, chief knowledge officer, manager case management)? Give summary @ -Dr. Streeter who will admit covering hospital call Was smoking cessation discussed for >3mins.? @ -No Was critical care preformed (if so, how long)? @ -No Were there social determinants of health that impacted care today? How? (Homelessness, low income, unemployed, alcoholism, drug addiction, transportation, low edu. Level, literacy, decrease access to med. care, intermediate, rehab)? @ -No Was there de-escalation of care discussed even if they declined (Discuss DNR or withdrawal of care, Hospice)? DNR status @ -No What co-morbidities impacted this encounter? (DM, HTN, Smoking, COPD, CAD, Cancer, CVA, ARF, Chemo, Hep., AIDS, mental health diagnosis, sleep apnea, morbid obesity)? @ -None Was patient admitted / discharged? Hospital course, mention meds given and route, prescriptions, significant lab abnormalities, going to OR and other pert inent info. @ -Patient presents with chest pain and exertional dyspnea and palpitations. First troponin negative. Patient is on Eliquis. Patient will be admitted with cardiac consult. Admission orders placed Undiagnosed new problem with uncertain prognosis? @ -No Drug Therapy requiring intensive monitoring for toxicity (Heparin, Nitro, Insulin, Cardizem)? @ -No Were any procedures done? @ -No Diagnosis/symptom? @ -Chest pain Acute, or Chronic, or Acute on Chronic? @ -Acute Uncomplicated (without systemic symptoms) or Complicated (systemic symptoms)? @ -Default Side effects of treatment? @ -No Exacerbation, Progression, or Severe Exacerbation? @ -No Poses a threat to life or bodily function? How? (Chest pain, USA, LA, pneumonia, PE, COPD, DKA, ARF, appy, cholecystitis, CVA, Diverticulitis, Homicidal, Suicidal, threat to staff... and all critical care pts) @ -No (Olaf Cordova) Disposition <Darell Miller - Last Filed: 05/16/24 16:24> Is patient prescribed a controlled substance at d/c from ED?: No Time of Disposition: 20:13 <Olaf Cordova - Last Filed: 05/16/24 20:13> Clinical Impression: Chest pain Disposition: ADMITTED IP TO THIS HOSP Referrals: Nonstaff,Physician [Primary Care Provider] - 1-2 days
[2024-05-16 19:03] LABS: Basophils # (A) 0.1 k/uL (0-0.2); Basophils % (A) 1 %; Eosinophils # (A) 0.2 k/uL (0-0.7); Eosinophils % (A) 1 %; HCT 49.2 % (39.0-53.0); HGB 16.1 gm/dL (13.0-17.5); Lymphocytes # (A) 2.6 k/uL (1.0-4.8); Lymphocytes % (A) 23 %; MCH 28.8 pg (25.0-35.0); MCHC 32.7 g/dL (31.0-37.0); MCV 88.1 fL (80.0-100.0); Mean Platelet Volume 8.8; Monocytes # (A) 0.8 k/uL (0-1.0); Monocytes % (A) 7 %; Neutrophils # (A) 7.4 k/uL (1.3-7.7); Neutrophils % (A) 66 %; Platelet Count 272 k/uL (150-450); RBC 5.58 m/uL (4.30-5.90); RDW 13.8 % (11.5-15.5); WBC 11.2 k/uL (3.8-10.6)
--- NOTE | 2024-05-16 19:08 | XR ---
EXAMINATION TYPE: XR chest 2V DATE OF EXAM: 05/16/2024 7:01 PM CLINICAL INDICATION:Male, 74 years old with history of Chest Pain; [facility] COMPARISON: Chest radiographs from 02/23/2024 TECHNIQUE: XR chest 2V Frontal view of the chest. FINDINGS: Lungs/Pleura: There is no evidence of pleural effusion, focal consolidation, or pneumothorax. Pulmonary vascularity: Unremarkable. Heart/mediastinum: Cardiomediastinal silhouette is unremarkable. Atherosclerotic calcifications are seen in the aorta. Two lead cardiac conduction device overlying the left hemithorax with lead tips pr ojecting over the right ventricle and right atrium. Musculoskeletal: No acute osseous pathology. IMPRESSION: No acute cardiopulmonary disease/process.
[2024-05-16 19:11] LABS: Partial Thromboplastin Time 25.4 sec (22.0-30.0); Prothrombin Time 11.2 sec (10.0-12.5)
[2024-05-16 19:13] LABS: ALT 24 U/L (4-49); African American GFR (CKD) >90 (>60 ml/min/1.73 sqM); Anion Gap 8 mmol/L; Blood Urea Nitrogen 22 mg/dL (9-20); Calcium 9.5 mg/dL (8.4-10.2); Carbon Dioxide 20 mmol/L (22-30); Chloride 110 mmol/L (98-107); Glucose 118 mg/dL (74-99); Magnesium 2.1 mg/dL (1.6-2.3); Non-African American GFR(CKD) 83 (>60 ml/min/1.73 sqM); Sodium 138 mmol/L (137-145); Total Protein 7.8 g/dL (6.3-8.2)
[2024-05-16 19:17] LABS: AST 36 U/L (17-59); Albumin 4.5 g/dL (3.5-5.0); Alkaline Phosphatase 72 U/L (38-126); Potassium 5.4 mmol/L (3.5-5.1); Total Bilirubin 1.1 mg/dL (0.2-1.3)
[2024-05-16] MEDS ORDERED: NITROGLYCERIN SL TABS 0.4 MG TAB SUBLINGUAL PRN ×2 (20:14→22:46)
[2024-05-16] MEDS: ASPIRIN 81 MG PO STA (21:38)
--- NOTE | 2024-05-16 22:53 | CT ---
EXAMINATION TYPE: CT angio chest DATE OF EXAM: 05/16/2024 COMPARISON: NONE HISTORY: pt arrives with c/o chest pain that started on and is worsening pt has hx of pacema ker and PE. History of prostate cancer. CT DLP: 391.1 mGycm. Automated Exposure Control for Dose Reduction was Utilized. CONTRAST: CTA scan of the thorax is performed with IV Contrast, patient injected with 100 ml mL of Isovue 370, pulmonary embolism protocol. MIP Images are created on CT scanner and reviewed. FINDINGS: LUNGS: There is 3 mm anterior inferior right upper lobe pulmonary nodule axial image 78. No focal co nsolidation. There is no pleural effusion or pneumothorax seen. The tracheobronchial tree is patent. MEDIASTINUM: There is satisfactory enhancement of the pulmonary artery and its branches, there is no CT evidence for pulmonary embolism. Small pericardial effusion. Heart size upper limits of normal wit h dual-lead pacemaker. Prominent and slightly enlarged right hilar, prevascular, and subcarinal lymph nodes are nonspecific. Somewhat small size thyroid gland. Some enhancement of the thoracic aorta wit hout aneurysm or dissection. OTHER: A few small hypodense lesions throughout the liver favor thin-walled cysts. Bridging osteophyt es throughout the thoracic spine. IMPRESSION: 1. No CT evidence for acute pulmonary embolism.
[2024-05-16] MEDS: NITROGLYCERIN OINT 1 INCH/GM PACKET TOPICAL SCH (23:14)
[2024-05-17 07:22] VITALS: RESP 16
[2024-05-17 08:58] LABS: Chol/HDL Ratio 5.94 Ratio; LDL Cholesterol,Calculated 107.4 mg/dL (0.0-131.0)
[2024-05-17] MEDS ORDERED: APIXABAN 2.5 MG TABLET PO SCH (09:00)
[2024-05-17] MEDS ORDERED: METOPROLOL TARTRATE 12.5 MG TAB PO SCH (09:00)
[2024-05-17] MEDS ORDERED: ASPIRIN 325 MG TAB PO SCH (09:00)
[2024-05-17] MEDS: ISOSORBIDE MONONITRATE ER 30 MG TAB.ER.24H PO SCH (09:06)
[2024-05-17] MEDS: METOPROLOL SUCCINATE (ER) 50 MG TAB.ER.24H PO SCH (09:06)
[2024-05-17] MEDS: APIXABAN 5 MG TAB PO SCH (09:06)
[2024-05-17] MEDS: ASPIRIN 81 MG PO SCH (09:06)
[2024-05-17] MEDS: LORATADINE 10 MG TAB PO SCH (09:06)
[2024-05-17] MEDS: IPRATROPIUM-ALBUTEROL 3 ML NEB INHALATION SCH (09:10)
--- NOTE | 2024-05-17 12:13 | P.CRDCN ---
History of Present Illness History of present illness: HISTORY OF PRESENT ILLNESS: This is a 74-year-old male with a past medical history significant for permanent pacemaker implantation, pulmonary embolism, hypertension, and hyperlipidemia. Patient follows in the office with Dr. Hager. We have been asked to see the patient in consultation for chest pain. Patient examined at the bedside. Patient states on he started to have some chest discomfort. He states the pain was worse with deep inspiration. He also states the pain was worse if he would sit down or bend over. He states the pain was occurring approximately every 5 minutes. He states that he felt as though his heart was going to stop. He denies feeling any palpitations. Denied any dizziness. He does report that he had a few more episodes overnight around 1 AM. Telemetry was reviewed with no arrhythmias noted. The patient was recently seen in the office on 05/10/2024. He does report that his pacemaker settings were slightly adjusted. DIAGNOSTICS: - EKG reveals sinus mechanism with no signs of acute ischemia. - Chest xray negative for acute process. - Laboratory data: WBC 11.2. Hemoglobin 16.1. Platelet count 272. D-dimer 0.93. Sodium 138. Potassium 5.4. BUN 22. Creatinine 0.91. Troponin negative x 3 - Current home cardiac medications include Eliquis 2.5 mg twice a day, metoprolol succinate 50 mg in the morning and 25 mg in the evening. - Most recent echocardiogram obtained in January 2024 revealing ejection fraction 55 to 60%, mild to moderate aortic regurgitation - Cardiac catheterization history: January 2024 revealing normal filling pr essures. No gradient. Mild to moderate noncritical 50% PDA branch of RCA and 50% diagonal disease. Right dominant system. No other significant disease. REVIEW OF SYSTEMS: At the time of my exam: CONSTITUTIONAL: Denies fever or chills. HEENT: Denies blurred vision, vision changes, or eye pain. Denies hemoptysis CARDIOVASCULAR: Denies chest pain. Denies orthopnea. Denies PND. Denies palpitations RESPIRATORY: Denies shortness of breath. GASTROINTESTINAL: Denies abdominal pain. Denies nausea or vomiting. HEMATOLOGIC: Denies bleeding disorders. GENITOURINARY: Denies any blood in urine. SKIN: Denies pruitis. Denies rash. PHYSICAL EXAM: VITAL SIGNS: Reviewed. GENERAL: Well-developed in no acute distress. HEENT: Head is normocephalic. Pupils are equal, round. Sclerae anicteric. Mucous membranes of the mouth are moist. Neck supple. No JVD or thyromegaly LUNGS: Respirations even and unlabored. Lungs essentially clear to auscultation bilaterally. HEART: Regular rate and rhythm. S1 and S2 heard. ABDOMEN: Soft. Nondistended. Nontender. EXTREMITIES: Normal range of motion. No clubbing or cyanosis. Peripheral pulses intact. No lower extremity edema NEUROLOGIC: Awake and alert. Oriented x 3. ASSESSMENT: Chest pain, troponin negative x 3 History of permanent pacemaker implantation History of pulmonary embolism, on Eliquis outpatient History of hypertension History of hyperlipidemia Nonobstructive CAD, per cardiac catheterization January 2024 PLAN: No need to repeat echocardiogram Interrogate pacemaker Resume home cardiac medications Increase Eliquis to 5 mg twice a day for appropriate thromboembolic protection Patient to be discharged home with 3-day event monitor that he can record when these episodes are happening to see if they may potentially be related to his pa cemaker as he feels like "his heart is going to stop"". Further recommendations pending patient course Nurse practitioner note has been reviewed by physician. Signing provider agrees with the documented findings, assessment, and plan of care documented by FILM TESTS CHECKER as a scribe. Past Medical History Past Medical History: Cancer, COPD, GERD/Reflux, Hyperlipidemia, Hypertension Additional Past Medical History / Comment(s): prostate History of Any Multi-Drug Resistant Organisms: None Reported Past Surgical History: Cholecystectomy, Orthopedic Surgery Additional Past Surgical History / Comment(s): excision of bunion, cryoablate prostate, colonoscopy Past Psychological History: No Psychological Hx Reported Smoking Status: Former smoker Past Alcohol Use History: None Reported Past Drug Use History: None Reported Medications and Allergies Home Medications Medication Instructions Recorded Confirmed Type Cetirizine HCl [Zyrtec] 10 mg PO DAILY 02/08/24 05/17/24 History Omeprazole [PriLOSEC] 20 mg PO HS 02/08/24 05/17/24 History Apixaban [Eliquis] 2.5 mg PO BID 05/17/24 05/17/24 History Metoprolol Succinate (ER) [Toprol 25 mg PO HS 05/17/24 05/17/24 History Xl] Metoprolol Succinate (ER) [Toprol 50 mg PO DAILY 05/17/24 05/17/24 History Xl] Allergies Allergy/AdvReac Type Severity Reaction Status Date / Time Penicillins Allergy Rash/Hives Verified 05/17/24 07:53 Sulfa (Sulfonamide Allergy Rash/Hives Verified 05/17/24 07:53 Antibiotics) steroid injection (unknown) AdvReac Dizziness Uncoded 02/17/24 10:37 Physical Exam Vitals: Vital Signs Temp Pulse Pulse Resp BP BP Pulse Ox 05/17/24 07:00 97.5 F L 62 16 150/89 98 05/17/24 04:49 58 L 14 150/89 95 05/17/24 04:30 60 18 122/84 95 05/16/24 23:14 62 18 156/88 99 05/16/24 15:54 98.0 F 105 H 18 126/84 97 Intake and Output 05/16/24 05/17/24 05/17/24 22:59 06:59 14:59 Other: Weight 81.647 kg Results 05/16/24 18:54 05/16/24 18:54 Cardiac Enzymes 05/16/24 05/16/24 05/16/24 Range/Units 18:54 18:54 21:55 AST 36 (17-59) U/L Troponin I <0.012 <0.012 (0.000-0.034) ng/mL 05/17/24 Range/Units 00:35 AST (17-59) U/L Troponin I <0.012 (0.000-0.034) ng/mL Coagulation 05/16/24 Range/Units 18:54 PT 11.2 (10.0-12.5) sec APTT 25.4 (22.0-30.0) sec CBC 05/16/24 Range/Units 18:54 WBC 11.2 H (3.8-10.6) k/uL RBC 5.58 (4.30-5.90) m/uL Hgb 16.1 (13.0-17.5) gm/dL Hct 49.2 (39.0-53.0) % Plt Count 272 (150-450) k/uL Comprehensive Metabolic Panel 05/16/24 Range/Units 18:54 Sodium 138 (137-145) mmol/L Potassium 5.4 H (3.5-5.1) mmol/L Chloride 110 H (98-107) mmol/L Carbon Dioxide 20 L (22-30) mmol/L BUN 22 H (9-20) mg/dL Creatinine 0.91 (0.66-1.25) mg/dL Glucose 118 H (74-99) mg/dL Calcium 9.5 (8.4-10.2) mg/dL AST 36 (17-59) U/L ALT 24 (4-49) U/L Alkaline Phosphatase 72 (38-126) U/L Total Protein 7.8 (6.3-8.2) g/dL Albumin 4.5 (3.5-5.0) g/dL Current Medications Generic Name Dose Route Start Last Admin Trade Name Freq PRN Reason Stop Dose Admin Albuterol/Ipratropium 3 ml 05/17/24 08:00 Ipratropium-Albuterol 3 Ml Neb INHALATION RT-QID [facility] Apixaban 2.5 mg 05/17/24 09:00 Apixaban 2.5 Mg Tablet PO BID [facility] Protocol Aspirin 81 mg 05/17/24 09:00 Aspirin 81 Mg PO DAILY [facility] Atorvastatin Calcium 80 mg 05/17/24 21:00 Atorvastatin 80 Mg Tab PO HS [facility] Isosorbide Mononitrate 30 mg 05/17/24 09:00 Isosorbide Mononitrate Er 30 Mg Tab.Er.24h PO DAILY [facility] Loratadine 10 mg 05/17/24 09:00 Loratadine 10 Mg Tab PO DAILY [facility] Losartan Potassium 50 mg 05/17/24 21:00 Losartan 50 Mg Tab PO HS [facility] Metoprolol Tartrate 12.5 mg 05/17/24 09:00 Metoprolol Tartrate 12.5 Mg Tab PO BID [facility] Nitroglycerin 0.4 mg 05/16/24 22:46 Nitroglycerin Sl Tabs 0.4 Mg Tab SUBLINGUAL Q5M PRN Chest Pain Pantoprazole Sodium 40 mg 05/17/24 21:00 Pantoprazole 40 Mg Tablet PO HS [facility] Sodium Chloride 10 ml 05/16/24 21:00 05/16/24 21:39 Sodium Chloride 0.9% Flush 10 Ml Syringe IV 10 ml BID [facility] Administration Intake and Output 05/16/24 05/17/24 05/17/24 22:59 06:59 14:59 Other: Weight 81.647 kg 05/16/24 18:54 05/16/24 18:54
[2024-05-17 14:53] VITALS: BP 111/69; PULSE 58; TEMP 97.7
[2024-05-17] MEDS ORDERED: PANTOPRAZOLE 40 MG TABLET PO SCH (21:00)
[2024-05-17] MEDS ORDERED: LOSARTAN 50 MG TAB PO SCH (21:00)
[2024-05-17] MEDS ORDERED: METOPROLOL SUCCINATE (ER) 25 MG TAB.ER.24H PO SCH (21:00)
[2024-05-17] MEDS ORDERED: ATORVASTATIN 80 MG TAB PO SCH (21:00)
--- NOTE | 2024-05-17 23:25 | HP ---
HISTORY AND PHYSICAL HISTORY OF PRESENT ILLNESS: This 74-year-old is coming to the hospital with some chest pain, worsening, intermittent, stabbing. He was recently diagnosed with PE back in January. He had echocardiogram 2 weeks ago. He is short of breath with pain at times, worse in the last 4-5 days, more like an ache. Does have exertional dyspnea with climbing stairs, orthopnea. Recent pacemaker placement. HOME MEDICINES: 1. Cozaar. 2. Aspirin. 3. Lipitor. 4. Imdur. 5. Metoprolol. 6. Nitrostat. ALLERGIES: Penicillin, sulfa. REVIEW OF SYSTEMS: A 14-point review of systems otherwise negative, more of a pleuritic pain when he exercises he says. PAST MEDICAL HISTORY: CAD, COPD, GERD, dyslipidemia, hypertension. EKG, first-degree heart block, possible atrial rhythm. No ST-T changes. PAST SURGICAL HISTORY: Cholecystectomy orthopedic surgery. SOCIAL HISTORY: Former smoker. PHYSICAL EXAMINATION: GENERAL: A well-appearing nontoxic, no acute distress. HEENT: Normocephalic, atraumatic. LUNGS: Nonlabored breathing, decreased breath sounds. NEUROLOGIC: Alert and orient x3. MUSCULOSKELETAL: Fair mood and affect. VITAL SIGNS: Blood pressure 126/84, O2 97, pulse 105, temperature 98, and respiratory rate 16 to 18. ASSESSMENT: Atypical chest pain, GERD, dyslipidemia, hypertension, possible cardiac arrhythmias, coronary artery disease, history of PE, on Eliquis. Await for Cardiology recommendations. If they clear him for discharge, we will send him home. His CTA shows no blood clots. Prognosis guarded. MMODL / IJN: [id number] /
== END 2024-05-17 14:31 | disposition home or self-care (01) ==
LOC: EC 15:48 → 6NMEDSUR 20:15
PROVIDERS: ADMIT Family Medicine; ATTEND Family Medicine
DX: R07.89 Other chest pain (principal); J44.9 Chronic obstructive pulmonary disease, unspecified; K21.9 Gastro-esophageal reflux disease without esophagitis; E78.5 Hyperlipidemia, unspecified; I10 Essential (primary) hypertension; I25.10 Atherosclerotic heart disease of native coronary artery without angina pectoris; Z86.711 Personal history of pulmonary embolism; Z87.891 Personal history of nicotine dependence; Z95.0 Presence of cardiac pacemaker; Z79.01 Long term (current) use of anticoagulants; Z79.899 Other long term (current) drug therapy; Z79.82 Long term (current) use of aspirin; Z88.0 Allergy status to penicillin; Z88.2 Allergy status to sulfonamides
CPT/HCPCS: 99285; 36415; 94640; 93005; 93270; 85379; 80061; 80053; 83735; 84484 ×2; 85025; 85610; 85730; 71046; 71275; G0378 ×2; Q9967

== ENCOUNTER → 2024-07-13 | Outpatient (CLI) | payer MEDICARE ==
[2024-07-13 16:27] LABS: African American GFR (CKD) >90 (>60 ml/min/1.73 sqM); Blood Urea Nitrogen 25 mg/dL (9-20); Non-African American GFR(CKD) 85 (>60 ml/min/1.73 sqM)
--- NOTE | 2024-07-13 18:06 | CT ---
EXAMINATION TYPE: CT chest w con CT DLP: 467.1 mGycm, Automated exposure control for dose reduction was used. DATE OF EXAM: 07/13/2024 4:56 PM COMPARISON: 05/16/2024. CLINICAL INDICATION: Male, 74 years old with history of C61 MALIGNANT NEOPLASM OF PROSTATE; PHH, meta static Ca TECHNIQUE: Multiple axial images were obtained through the chest. Sagittal and coronal reformats were created for review. Contrast used:100 mL of Isovue 300 with IV Contrast (None if empty) Oral contrast used: (None if empty) FINDINGS: LUNGS/ PLEURA: No focal consolidation, pneumothorax or pleural effusion. AIRWAY: Patent and unremarkable. HEART: Size within normal limits. Cardiac conduction leads terminating in the right ventral: Right at rium. MEDIASTINUM: Is stable lymph nodes in the mediastinum including AP window 9 mm in short axis lymph no de. Subcarinal lymph node also is stable in size measuring up to 12 mm in short axis. VASCULATURE: No aortic aneurysm. MUSCULOSKELETAL: No acute osseous abnormalities SOFT TISSUES/LYMPH NODES: Unremarkable. LOWER NECK: No significant findings. UPPER ABDOMEN: Indeterminate right hepatic lobe lesion measuring 65 Hounsfield units and up to 21 mm. IMPRESSION: Stable mediastinal lymphadenopathy size. No enlarging lymph nodes within the visualized. Continued surveillance recommended.
== END | disposition home or self-care (01) ==
LOC: RADCTMAIN 15:47
PROVIDERS: ATTEND Internal Medicine
DX: C61 Malignant neoplasm of prostate
CPT/HCPCS: 36415; 71260; 82565; 84520

== ENCOUNTER → 2024-10-27 | Outpatient (CLI) | payer MEDICARE ==
[2024-10-27 09:43] LABS: African American GFR (CKD) >90 (>60 ml/min/1.73 sqM); Blood Urea Nitrogen 23 mg/dL (9-20); Non-African American GFR(CKD) 79 (>60 ml/min/1.73 sqM)
--- NOTE | 2024-10-27 10:25 | CT ---
CT thorax with contrast HISTORY: Prostate cancer and mediastinal lymphadenopathy. Follow-up study. COMPARISON: 07/13/2024 TECHNIQUE: Multiple axial images are obtained through the chest following uneventful administration o f nonionic IV contrast. FINDINGS: There is no suspicious lung mass or nodule. No airspace consolidation or abnormal interstitial density. There is no pleural effusion or pneumothorax. There is moderate cardiomegaly. There is an AICD device. There are 2 stable 12 to 14 mm right hilar lymph nodes and a stable 14 mm subcarinal lymph node. Scanning through the upper abdomen reveals a stable hepatic cyst in the right lobe of the liver. No focal osseous lesions are seen. IMPRESSION: 1. No acute cardiopulmonary disease or lung nodule. 2. Stable right hilar and mediastinal adenopathy. 3. Stable moderate cardiomegaly. [facility], Workstation: [email or web address] 10/27/2024 10:22 AM
== END | disposition home or self-care (01) ==
LOC: RADCTMAIN 09:08
PROVIDERS: ATTEND Internal Medicine
DX: C61 Malignant neoplasm of prostate (principal); R91.1 Solitary pulmonary nodule; J44.9 Chronic obstructive pulmonary disease, unspecified; Z86.711 Personal history of pulmonary embolism
CPT/HCPCS: 82565; 84520; 71260; 36415; Q9967

== ENCOUNTER 2025-01-18 16:22 | Emergency (ER) | payer MEDICARE ==
[2025-01-18 16:45] VITALS: RESP 16
[2025-01-18 17:08] LABS: Basophils % (A) 0 %; Eosinophils # (A) 0.3 k/uL (0-0.7); Eosinophils % (A) 2 %; HCT 48.9 % (39.0-53.0); HGB 16.3 gm/dL (13.0-17.5); Lymphocytes # (A) 2.3 k/uL (1.0-4.8); Lymphocytes % (A) 22 %; MCH 30.2 pg (25.0-35.0); MCHC 33.2 g/dL (31.0-37.0); MCV 90.9 fL (80.0-100.0); Mean Platelet Volume 8.1; Monocytes # (A) 0.7 k/uL (0-1.0); Monocytes % (A) 7 %; Neutrophils # (A) 7.1 k/uL (1.3-7.7); Neutrophils % (A) 66 %; Platelet Count 249 k/uL (150-450); RBC 5.38 m/uL (4.30-5.90); RDW 12.5 % (11.5-15.5); WBC 10.8 k/uL (3.8-10.6)
--- NOTE | 2025-01-18 17:08 | XR ---
EXAMINATION TYPE: XR chest 2V DATE OF EXAM: 01/18/2025 5:04 PM COMPARISON: 05/16/2024 CLINICAL INDICATION: Male, 74 years old with history of dysrhythmia: Shortness of breath TECHNIQUE: XR chest 2V views of the chest are obtained. FINDINGS: Scattered senescent parenchymal changes noted. Hyperinflation compatible with COPD. No evidence for infiltrate. No evidence for atelectasis. Heart size is stable. Mediastinal structures are stable and grossly unremarkable. No evidence for hilar prominence. Degenerative changes dorsal spine. IMPRESSION: 1. No evidence for acute pulmonary disease. [facility], , 01/18/2025 5:05 PM
[2025-01-18 17:19] LABS: Partial Thromboplastin Time 24.2 sec (22.0-30.0); Prothrombin Time 10.7 sec (10.0-12.5)
--- NOTE | 2025-01-18 17:20 | ED ---
Arrhythmia/Palpitations HPI - General Source: patient, RN notes reviewed Mode of arrival: ambulatory Limitations: no limitations <Vaishali Carrillo - Last Filed: 01/18/25 18:59> <Semaj Franco - Last Filed: 01/18/25 19:55> - General Chief Complaint: Arrhythmia/Palpitations Stated Complaint: heart issue, L arm numbness Time Seen by Provider: 01/18/25 16:31 - History of Present Illness Initial Comments: This is a 74-year-old male with history of COPD, hypertension, recurrent A-fib with intermittent PE on Eliquis presents emergency department with complaint of irregular feeling in his chest. He states that he was working in his basement prior to arrival when he had his hands raised above his head when he began to experience a irregular feeling in his chest as he was in A-fib. He states that after he lowered his hands. He also said however when he returned to work the feeling returned. Currently patient is denying heart palpitations, dizziness, lightheadedness, blurring of vision, chest pain or difficulty breathing. Patient states that this intermittent sensation has occurred over the past few weeks addition to experiencing mild dyspnea on exertion. Patient does have a pacemaker in place that was interrogated November. Additionally, over the past few weeks he has been experiencing intermittent dizziness described as a room spinning sensation that will last for a few moments with feelings off balance (Vaishali Carrillo) - Related Data Home Medications Medication Instructions Recorded Confirmed Cetirizine HCl [Zyrtec] 10 mg PO HS 02/08/24 01/18/25 Omeprazole [PriLOSEC] 20 mg PO HS 02/08/24 01/18/25 Metoprolol Succinate (ER) [Toprol 50 mg PO DAILY 05/17/24 01/18/25 XL] Metoprolol Succinate (ER) [Toprol 25 mg PO HS 01/18/25 01/18/25 Xl] Previous Rx's Medication Instructions Recorded Apixaban [Eliquis] 5 mg PO BID 30 Days #60 tab 05/17/24 Isosorbide Mononitrate ER [Imdur] 30 mg PO DAILY 90 Days #90 tab 05/17/24 Nitroglycerin Sl Tabs [Nitrostat] 0.4 mg SUBLINGUAL Q5M PRN 90 Days 05/17/24 #90 tab Allergies Allergy/AdvReac Type Severity Reaction Status Date / Time Penicillins Allergy Rash/Hives Verified 01/18/25 18:01 Sulfa (Sulfonamide Allergy Rash/Hives Verified 01/18/25 18:01 Antibiotics) steroid injection (unknown) AdvReac Dizziness Uncoded 01/18/25 18:01 Review of Systems ROS Other: All systems not noted in ROS Statement are negative. <Vaishali Carrillo - Last Filed: 01/18/25 18:59> ROS Other: All systems not noted in ROS Statement are negative. <Semaj Franco - Last Filed: 01/18/25 19:55> ROS Statement: Those systems with pertinent positive or pertinent negative responses have been documented in the HPI. Past Medical History Past Medical History: Cancer, COPD, GERD/Reflux, Hyperlipidemia, Hypertension Additional Past Medical History / Comment(s): prostate History of Any Multi-Drug Resistant Organisms: None Reported Past Surgical History: Cholecystectomy, Orthopedic Surgery Additional Past Surgical History / Comment(s): excision of bunion, cryoablate prostate, colonoscopy Past Psychological History: No Psychological Hx Reported Smoking Status: Former smoker Past Alcohol Use History: None Reported Past Drug Use History: None Reported <Vaishali Carrillo - Last Filed: 01/18/25 18:59> General Exam Limitations: no limitations ENT exam: Present: normal exam, mucous membranes moist Neck exam: Present: normal inspection. Absent: tenderness, meningismus, lymphadenopathy Respiratory exam: Present: normal lung sounds bilaterally. Absent: respiratory distress, wheezes, rales, rhonchi, stridor Cardiovascular Exam: Present: regular rate, normal rhythm, normal heart sounds. Absent: systolic murmur, diastolic murmur, rubs, gallop, clicks GI/Abdominal exam: Present: soft, normal bowel sounds. Absent: distended, tenderness, guarding, rebound, rigid Extremities exam: Present: normal inspection, full ROM, normal capillary refill. Absent: tenderness, pedal edema, joint swelling, calf tenderness Neurological exam: Present: alert, oriented X3, CN II-XII intact <Vaishali Carrillo - Last Filed: 01/18/25 18:59> Course Vital Signs 01/18/25 01/18/25 01/18/25 16:24 16:43 18:18 Temperature 97.4 F L 97.6 F Pulse Rate 82 70 70 Respiratory 18 16 16 Rate Blood Pressure 155/89 171/95 133/66 O2 Sat by Pulse 96 97 97 Oximetry Medical Decision Making - Lab Data Result diagrams: 01/18/25 16:59 01/18/25 16:59 <Vaishali Carrillo - Last Filed: 01/18/25 18:59> - Lab Data Result diagrams: 01/18/25 16:59 01/18/25 16:59 <Semaj Franco - Last Filed: 01/18/25 19:55> - Medical Decision Making Was pt. sent in by a medical professional or institution (, PA, ENTRY LEVEL MANUFACTURING ENGINEER, urgent care, hospital, or [facility]...) When possible be specific @ -[No] Did you speak to anyone other than the patient for history (EMS, parent, family, police, friend...)? What history was obtained from this source @ -[No] Did you review nursing and triage notes (agree or disagree)? Why? @ -[I reviewed and agree with nursing and triage notes] Were old charts reviewed (outside hosp., previous admission, EMS record, old EKG, old radiological studies, urgent care reports/EKG's, [facility] records)? Report findings @ -[No old charts were reviewed] Differential Diagnosis (chest pain, altered mental status, abdominal pain women, abdominal pain men, vaginal bleeding, weakness, fever, dyspnea, syncope, headache, dizziness, GI bleed, back pain, seizure, CVA, palpatations, mental health, musculoskeletal)? @ -Differential Palpitations Ventricular arrhythmias, atrial arrhythmias, myocardial infarction, anemia, thyrotoxicosis, electrolyte imbalance, hypokalemia, pulmonary embolism, pulmonary disease, drugs, alcohol, anxiety, stress.... This is not meant to be an all-inclusive list. EKG interpreted by me (3pts min.). @ -Completed at 1638 sinus rhythm with first-degree AV block, ventricular rate 74, [place] interval 220, QRS 100, QTc 435. X-rays interpreted by me (1pt min.). @ -Chest x-ray no acute process CT interpreted by me (1pt min.). @ -CT of the brain without contrast no acute intracranial hemorrhage, mass effect or midline shift U/S interpreted by me (1pt. min.). @ -[None done] What testing was considered but not performed or refused? (CT, X-rays, U/S, labs)? Why? @ -[None] What meds were considered but not given or refused? Why? @ -[None] Did you discuss the management of the patient with other professionals (professionals i.e. , PA, ENTRY LEVEL MANUFACTURING ENGINEER, lab, RT, psych nurse, licensed social worker, lunchroom worker, teacher, hydrographical technical officer, disease case manager)? Give summary @ -[No] Was smoking cessation discussed for >3mins.? @ -[No] Was critical care preformed (if so, how long)? @ -[No] Were there social determinants of health that impacted care today? How? (Homelessness, low income, unemployed, alcoholism, drug addiction, transportati on, low edu. Level, literacy, decrease access to med. care, senior living, rehab)? @ -[No] Was there de-escalation of care discussed even if they declined (Discuss DNR or withdrawal of care, Hospice)? DNR status @ -[No] What co-morbidities impacted this encounter? (DM, HTN, Smoking, COPD, CAD, Cancer, CVA, ARF, Chemo, Hep., AIDS, mental health diagnosis, sleep apnea, morbid obesity)? @ -[None] Was patient admitted / discharged? Hospital course, mention meds given and route, prescriptions, significant lab abnormalities, going to OR and other pertinent info. @ -74-year-old male presenting with complaints of heart, dyspnea exertion,. On arrival patient is resting comfortably no signs of acute distress. Mildly hypertensive with a blood pressure 155/89. Neurological examination completed with no acute deficits this patient was complaining of intermittent dizziness. Will undergo cardiac evaluation. In addition to CT of the brain. EKG notable for a sinus rhythm with first-degree AV block. There are features including CBC, CMP, coagulation, troponin and BNP within normal. Chest x-ray and CT of the brain unremarkable and no acute process. Patient was offered admission with concern for heart palpitations with intermittent dizziness and lightheadedness however he has declined stating that he prefers to follow-up with his power barker outpatient. patient is signed out to my attending, Dr. Franco, pending pacemaker interrogation results and disposition. Undiagnosed new problem with uncertain prognosis? @ -[No] Drug Therapy requiring intensive monitoring for toxicity (Heparin, Nitro, Insulin, Cardizem)? @ -[No] Were any procedures done? @ -[No] Diagnosis/symptom? @ -[default] Acute, or Chronic, or Acute on Chronic? @ -[default] Uncomplicated (without systemic symptoms) or Complicated (systemic symptoms)? @ -[default] Side effects of treatment? @ -[No] Exacerbation, Progression, or Severe Exacerbation? @ -[No] Poses a threat to life or bodily function? How? (Chest pain, [place], [place], pneumonia, PE, COPD, DKA, ARF, appy, cholecystitis, CVA, Diverticulitis, Homicidal, Suicidal, threat to staff... and all critical care pts) @ -[No] (Vaishali Carrillo) - Lab Data Lab Results 01/18/25 01/18/25 01/18/25 Range/Units 16:59 16:59 16:59 WBC 10.8 H (3.8-10.6) k/uL RBC 5.38 (4.30-5.90) m/uL Hgb 16.3 (13.0-17.5) gm/dL Hct 48.9 (39.0-53.0) % MCV 90.9 (80.0-100.0) fL MCH 30.2 (25.0-35.0) pg MCHC 33.2 (31.0-37.0) g/dL RDW 12.5 (11.5-15.5) % Plt Count 249 (150-450) k/uL MPV 8.1 Neutrophils % 66 % Lymphocytes % 22 % Monocytes % 7 % Eosinophils % 2 % Basophils % 0 % Neutrophils # 7.1 (1.3-7.7) k/uL Lymphocytes # 2.3 (1.0-4.8) k/uL Monocytes # 0.7 (0-1.0) k/uL Eosinophils # 0.3 (0-0.7) k/uL Basophils # 0.0 (0-0.2) k/uL PT 10.7 (10.0-12.5) sec INR 1.0 (<1.2) APTT 24.2 (22.0-30.0) sec Sodium 138 (137-145) mmol/L Potassium 4.2 (3.5-5.1) mmol/L Chloride 104 (98-107) mmol/L Carbon Dioxide 21 L (22-30) mmol/L Anion Gap 13 mmol/L BUN 23 H (9-20) mg/dL Creatinine 0.96 (0.66-1.25) mg/dL Est GFR (CKD-EPI)AfAm >90 (>60 ml/min/1.73 sqM) Est GFR (CKD-EPI)NonAf 78 (>60 ml/min/1.73 sqM) Glucose 97 (74-99) mg/dL Calcium 9.4 (8.4-10.2) mg/dL Magnesium 2.2 (1.6-2.3) mg/dL Total Bilirubin 1.0 (0.2-1.3) mg/dL AST 40 (17-59) U/L ALT 30 (4-49) U/L Alkaline Phosphatase 96 (38-126) U/L Troponin I (0.000-0.034) ng/mL NT-Pro-B Natriuret Pep pg/mL Total Protein 8.0 (6.3-8.2) g/dL Albumin 4.7 (3.5-5.0) g/dL 01/18/25 01/18/25 Range/Units 16:59 17:00 WBC (3.8-10.6) k/uL RBC (4.30-5.90) m/uL Hgb (13.0-17.5) gm/dL Hct (39.0-53.0) % MCV (80.0-100.0) fL MCH (25.0-35.0) pg MCHC (31.0-37.0) g/dL RDW (11.5-15.5) % Plt Count (150-450) k/uL MPV Neutrophils % % Lymphocytes % % Monocytes % % Eosinophils % % Basophils % % Neutrophils # (1.3-7.7) k/uL Lymphocytes # (1.0-4.8) k/uL Monocytes # (0-1.0) k/uL Eosinophils # (0-0.7) k/uL Basophils # (0-0.2) k/uL PT (10.0-12.5) sec INR (<1.2) APTT (22.0-30.0) sec Sodium (137-145) mmol/L Potassium (3.5-5.1) mmol/L Chloride (98-107) mmol/L Carbon Dioxide (22-30) mmol/L Anion Gap mmol/L BUN (9-20) mg/dL Creatinine (0.66-1.25) mg/dL Est GFR (CKD-EPI)AfAm (>60 ml/min/1.73 sqM) Est GFR (CKD-EPI)NonAf (>60 ml/min/1.73 sqM) Glucose (74-99) mg/dL Calcium (8.4-10.2) mg/dL Magnesium (1.6-2.3) mg/dL Total Bilirubin (0.2-1.3) mg/dL AST (17-59) U/L ALT (4-49) U/L Alkaline Phosphatase (38-126) U/L Troponin I <0.012 (0.000-0.034) ng/mL NT-Pro-B Natriuret Pep 157 pg/mL Total Protein (6.3-8.2) g/dL Albumin (3.5-5.0) g/dL Disposition <Vaishali Carrillo - Last Filed: 01/18/25 18:59> Is patient prescribed a controlled substance at d/c from ED?: No Time of Disposition: 19:40 <Semaj Franco - Last Filed: 01/18/25 19:55> Clinical Impression: Palpitations Disposition: HOME SELF-CARE Condition: Fair Instructions (If sedation given, give patient instructions): Heart Palpitations (ED) Referrals: Bridger Pyle MD [Primary Care Provider] - 1-2 days
[2025-01-18 17:22] LABS: ALT 30 U/L (4-49); African American GFR (CKD) >90 (>60 ml/min/1.73 sqM); Albumin 4.7 g/dL (3.5-5.0); Anion Gap 13 mmol/L; Blood Urea Nitrogen 23 mg/dL (9-20); Calcium 9.4 mg/dL (8.4-10.2); Carbon Dioxide 21 mmol/L (22-30); Chloride 104 mmol/L (98-107); Glucose 97 mg/dL (74-99); Non-African American GFR(CKD) 78 (>60 ml/min/1.73 sqM); Sodium 138 mmol/L (137-145)
[2025-01-18 17:23] LABS: AST 40 U/L (17-59); Alkaline Phosphatase 96 U/L (38-126); Magnesium 2.2 mg/dL (1.6-2.3); Potassium 4.2 mmol/L (3.5-5.1)
--- NOTE | 2025-01-18 17:24 | CT ---
EXAMINATION TYPE: CT brain wo con DATE OF EXAM: 01/18/2025 COMPARISON: None CLINICAL INDICATION: Male, 74 years old with history of dizziness, off balance; PHH, dizziness, off b alance. TECHNIQUE: CT of the brain performed without contrast with sagittal and coronal reformats. CT DLP: 1128.[address] CTDI: mGy Automated exposure control for dose reduction was used. FINDINGS: There is no acute intracranial hemorrhage, mass effect, or midline shift identified. The ventricles and sulci are within normal limits in size. The globes are intact and the visualized sinuses are jaspal ar. IMPRESSION: No acute intracranial hemorrhage, mass effect, or midline shift is seen. [facility], , 01/18/2025 5:21 PM
[2025-01-18 18:19] VITALS: TEMP 97.6
[2025-01-18 20:06] VITALS: BP 156/92; PULSE 59
== END 2025-01-18 20:06 | disposition home or self-care (01) ==
LOC: EC 16:22
DX: R00.2 Palpitations (principal); Z87.891 Personal history of nicotine dependence; Z88.0 Allergy status to penicillin; Z88.1 Allergy status to other antibiotic agents; Z88.8 Allergy status to other drugs, medicaments and biological substances; Z79.01 Long term (current) use of anticoagulants
CPT/HCPCS: 36415; 70450; 71046; 80053; 83735; 83880; 84484; 85025; 85610; 85730; 93005; 99285

== ENCOUNTER → 2025-04-24 | Outpatient (CLI) | payer MEDICARE ==
[2025-04-24 12:36] LABS: African American GFR (CKD) >90 (>60 ml/min/1.73 sqM); Blood Urea Nitrogen 27 mg/dL (9-20); Non-African American GFR(CKD) 81 (>60 ml/min/1.73 sqM)
--- NOTE | 2025-04-24 14:00 | CT ---
EXAMINATION TYPE: CT chest w con CT DLP: 468.50 mGycm, Automated exposure control for dose reduction was used. DATE OF EXAM: 04/24/2025 1:46 PM COMPARISON: CT chest 10/27/2024, 07/13/2024, CTA chest 05/16/2024, 02/19/2024, PET/CT 04/01/2024 CLINICAL INDICATION:Male, 75 years old with history of C61 PROSTATE CANCER; PHH, pt states reason for exam is swollen lymph nodes. TECHNIQUE: Multiple axial images were obtained through the chest following the administration of 100 cc of Isovue 300. . Coronal and sagittal reformats reviewed. FINDINGS: LUNGS/ PLEURA: No pleural effusion, pneumothorax, focal consolidation. Minimal bilateral lower lobe d ependent subsegmental atelectasis. Left upper lobe calcified granuloma. Stable anterior inferior rig ht upper lobe 2.4 mm pulmonary nodule (series 4, image 31). Stable right apical 3.3 mm pulmonary nodu le (series 4, image 14). No new or enlarging pulmonary nodules. AIRWAY: Patent and unremarkable.. HEART: Cardiomegaly is demonstrated.Left anterior chest wall cardiac conduction device with leads ter minating in the right ventricle and atrium. Atherosclerosis of the arterial vasculature.. No pericard ial effusion. No significant coronary artery calcifications. MEDIASTINUM: Stable prominent/borderline enlarged mediastinal and bilateral hilar lymph nodes includi ng a AP window lymph node measuring 9 mm short axis, a subcarinal lymph node measuring 1.0 cm short a xis, and bilateral hilar lymph nodes measuring up to 1 cm short axis. VASCULATURE: No aortic aneurysm. MUSCULOSKELETAL: No acute osseous abnormalities. DISH of the mid to lower thoracic spine. No aggressi ve osseous lesion. SOFT TISSUES/LYMPH NODES: Unremarkable. LOWER NECK: No significant findings. UPPER ABDOMEN: Few stable hepatic cysts with largest measuring up to 2.0 cm. IMPRESSION: 1. No acute thoracic process. 2. Stable borderline prominent/enlarged mediastinal and bilateral hilar adenopathy dating back to 01/31 exam. No new adenopathy. 3. Couple of stable pulmonary nodules measuring less than 4 mm. No new or enlarging pulmonary nodules . [facility], , 04/24/2025 1:58 PM
== END | disposition home or self-care (01) ==
LOC: RADCTMAIN 11:48
PROVIDERS: ATTEND Internal Medicine
DX: C61 Malignant neoplasm of prostate (principal); R91.8 Other nonspecific abnormal finding of lung field; R59.0 Localized enlarged lymph nodes
CPT/HCPCS: 82565; 84520; 71260; 36415; Q9967